=== PATIENT | male | born 1950 | race Caucasian/White ===

== ENCOUNTER 2021-08-02 07:50 | Outpatient (CLI) | payer MEDICARE, OTHER, SELFPAY ==
--- NOTE | ~2021-08-02 | NM_ITS ---
EXAMINATION: NM hepatobiliary wo pharm DATE: 08/02/2021 10:17 INDICATION: Right upper quadrant abdominal pain COMPARISON: None. TECHNIQUE: 5.0 mCi Tc-99m mebrofenin (Choletec) was administered intravenously. Scintigraphic images of the abdomen were obtained for one hour. At the 1 hour time point, the patient drank 8 oz Ensure, and imaging was continued for 60 minutes. Gallbladder ejection fraction was calculated by the technol ogist. FINDINGS: There is normal clearance of radiotracer from the blood pool. There is homogeneous tracer u ptake by the liver. Activity progresses to the bowel and gallbladder. The gallbladder ejection fract ion (GBEF) is 92%. Note that with this technique, normal GBEF >= 33%. IMPRESSION: 1. Normal hepatobiliary scan Reviewed, dictated and finalized at location A.
== END 2021-08-02 07:51 | disposition home or self-care (01) ==
LOC: ANHIMG 07:54
PROVIDERS: PCP Internal Medicine; Visit Provider Nurse Practitioner
DX: R10.11 Right upper quadrant pain (principal)
CPT/HCPCS: 78226; A9537

== ENCOUNTER 2022-03-05 20:04 | Observation (INO) | payer MEDICARE, OTHER, SELFPAY ==
--- NOTE | ~2022-03-05 | CT_ITS ---
EXAMINATION: CT abdomen pelvis wo con DATE: 03/05/2022 22:13 INDICATION: left flank pain TECHNIQUE: Computed tomography (CT) of the abdomen and pelvis was performed without intravenous contr ast. Automated exposure control and iterative reconstruction technique were employed. The dose-length product was 1476.55 mGy-cm. COMPARISON: None. FINDINGS: Lower thorax: Heavy coronary artery calcification. Possible coronary stents. Aortic valve replacement . Dependent atelectasis. Moderate hiatal hernia. Liver: Normal. Biliary/Gallbladder: Gallbladder is mildly contracted with a suggestion of minimal inflammatory llanos e. No bile duct dilation. Pancreas: No mass or duct dilation. Spleen: Normal. Adrenals:No mass. Kidneys: Multiple bilateral nonobstructing calculi. Nonobstructing 4 mm calculus in the left renal pe lvis. There is mild left proximal and trace right proximal hydronephrosis. 5 and 7 mm stones are pres ent in the left and right proximal ureters respectively. GI tract: No small or large bowel dilation. Normal appendix. Diverticulosis without diverticulitis. Mesentery/Peritoneum: No ascites, mass, or free air. Retroperitoneum: No mass. Atherosclerotic abdominal aortic and/or arterial calcifications. 3.2 cm fus iform infrarenal abdominal aortic aneurysm. Pelvis: 4 mm calcification in the dependent urinary bladder. Urinary bladder wall thickening, likely a consequence of marked prostatomegaly. Soft Tissues: Soft tissues and body wall unremarkable. Bones: No acute osseous finding. IMPRESSION: 1. 5 mm left proximal ureteral stone causing mild left obstructive uropathy. 2. 7 mm proximal right ureteral stone causing trace obstructive uropathy. 3. 4 mm calcification in the urinary bladder. 4. 3.2 cm infrarenal abdominal aortic aneurysm, recommend ultrasound of the aorta in 3 years for surv jamesance. Reviewed, dictated and finalized at location K. MOBILE BODY REPAIR CHIEF IMPRESSION: 1. 5 mm left proximal ureteral stone causing mild left obstructive uropathy. 2. 7 mm proximal right ureteral stone causing trace obstructive uropathy. 3. 4 mm calcification in the urinary bladder. 4. 3.2 cm infrarenal abdominal aortic aneurysm, recommend ultrasound of the aor ta in 3 years for surveillance.
--- NOTE | ~2022-03-05 | XR_ITS ---
EXAMINATION: XR retrograde pyelo w/stent BI DATE: 03/06/2022 11:45 INDICATION: Bilateral ureteral and kidney stones. TECHNIQUE: 6 intraoperative fluoroscopic views of the abdomen and pelvis were obtained. I was not pre sent. Fluoroscopy exposure time was 202 seconds. COMPARISON: CT abdomen and pelvis 03/05/2022 FINDINGS: Bilateral retrograde pyelograms demonstrate mild bilateral hydronephrosis. The final images demonstrate bilateral internal ureteral stents in expected positions. IMPRESSION: 1. Mild bilateral hydronephrosis with internal ureteral stents in expected positions. Reviewed, dictated and finalized at location A. HANDLE ASSEMBLER IMPRESSION: 1. Mild bilateral hydronephrosis with internal ureteral stents in expected posi tions.
--- NOTE | ~2022-03-05 | XR_ITS ---
EXAM: XR abdomen/kub 1V DATE: 03/05/2022 22:19 HISTORY: left flank pain x today . COMPARISON: CT abdomen and pelvis same date. FINDINGS: Clear lung bases. Normal bowel gas pattern. No organomegaly. Multiple bilateral renal calc ifications, much better appreciated the prior CT difficult to visualize radiographically due to body habitus. The known 5 mm proximal ureteral stone projects just superior to the tip of the left L4 garcia sverse process. The known 7 mm proximal right ureteral stone projects adjacent to the right inferolat eral corner of the L3 vertebral body Regional bones and soft tissues normal for age. IMPRESSION: Somewhat poor visualization of the known bilateral nephrolithiasis. Bilateral proximal co mparison ureteral stones. Reviewed, dictated and finalized at location K. TABOUT PUSHER IMPRESSION: Somewhat poor visualization of the known bilateral nephrolithiasis. Bilateral proximal comparison ureteral stones.
[2022-03-05 20:19] VITALS: BP 157/85; PULSE 61; RESP 20; TEMP 36.8; O2SAT 99
[2022-03-05 20:43] LABS: Basophils Absolute Auto 0.1 K/mm3 (0.0-0.1); Basophils Percent Auto 0.4 % (0.2-1.2); Eosinophils Absolute Auto 0.5 K/mm3 (0-0.3); Eosinophils Percent Auto 3.7 % (0-4.4); Hematocrit 41.3 % (42.0-52.0); Hemoglobin 14.3 g/dL (14.0-18.0); Immature Granulocyte Absolute 0.06 K/mm3 (0.00-0.031); Immature Granulocyte Percent A 0.5 % (0-0.5); Lymphocytes Absolute Auto 1.87 K/mm3 (0.9-3.2); Lymphocytes Percent Auto 15.5 % (18.3-44.2); Mean Corpuscular HGB Conc 34.6 g/dl (32-36); Mean Corpuscular Hemoglobin 32.8 pg (26-34); Mean Corpuscular Volume 94.7 fl (80-100); Mean Platelet Volume 9.1 fl (7.4-10.4); Monocytes Absolute Auto 1.2 K/mm3 (0.1-0.6); Monocytes Percent Auto 9.8 % (2.6-8.5); Neutrophils Absolute Auto 8.5 K/mm3 (1.3-6.7); Neutrophils Percent Auto 70.1 % (45.5-73.1); Platelet Count Result 188 k/mm3 (150-375); Red Blood Count 4.36 M/mm3 (4.6-6.20); Red Cell Distribution Width 13.2 % (11.5-14.5); White Blood Count 12.1 K/mm3 (4.5-10.0)
[2022-03-05 20:48] LABS: Add Urine Microscopic? YES; Appearance Urine Clear (Clear); Bilirubin Urine Negative (Negative); Blood Urine Trace-Intact (Negative); Color Urine Light Yellow (Yellow); Glucose Urine UA Negative (Negative); Ketones Urine Negative (Negative); Leukocyte Esterase Ur Negative LEU/UL (Negative); Nitrate Urine Negative (Negative); Protein Urine Negative (Negative); Urobilinogen Urine 0.2 mg/dL (<2.0); pH Urine 5.5 (5.0-9.0)
[2022-03-05 20:52] LABS: Mucus Urine Rare /lpf; RBC Urine 0-2 /hpf (0-2); Squamous Epithelial Cell Urine Rare /hpf (Few); WBC Urine 0-3 /hpf
[2022-03-05 20:58] LABS: Alanine Aminotransferase 37 U/L (6-50); Albumin Level 4.8 g/dL (3.5-5.1); Alkaline Phosphatase 106 U/L (38-126); Anion Gap 9 mmol/L (8-16); Aspartate Amino Transferase 30 U/L (17-59); Bilirubin,Total 0.6 mg/dL (0.2-1.3); Blood Urea Nitrogen 21 mg/dL (9-20); Calcium 9.2 mg/dL (8.4-10.2); Carbon Dioxide 28 mmol/L (22-30); Chloride 101 mmol/L (98-107); Estimated CRCL calculation 58 ml/min; Estimated Glomerular Filt Rate 50; Glucose 107 mg/dL (65-110); Potassium 4.4 mmol/L (3.4-5.0); Sodium 138 mmol/L (137-145)
--- NOTE | 2022-03-05 22:17 | ED.BACK ---
HPI - Back Pain/Injury General Chief Complaint: Back Pain/Injury Stated Complaint: right sided back pain Time Seen by Provider: 03/05/22 21:40 Source: patient Mode of arrival: ambulatory Limitations: no limitations History of Present Illness HPI Narrative: 71-year-old male with history of kidney stones, aortic valve replacement in January presents today with complaints of left flank pain that started about 530 6:00 tonight. Patient states he was laying on the couch when the pain started. Pain has been constant since it started. He denies any urinary symptoms like dysuria, hematuria or testicle pain. He denies any trauma. Denies aggravating or alleviating factors. He tried a heating pad at home without relief. Related Data Home Medications Medication Instructions Recorded Confirmed calcium carbonate 600 mg calcium 600 mg PO DAILY 04/04/19 09/11/21 (1,500 mg) tablet (Calcium) nitroglycerin 0.4 mg sublingual 0.4 mg sublingual Q5M PRN 01/02/21 09/11/21 tablet ascorbic acid (vitamin C) 500 mg 500 mg PO DAILY 01/23/22 chewable tablet aspirin 81 mg tablet,delayed 81 mg PO DAILY 01/23/22 release metoprolol succinate 25 mg 25 mg PO DAILY 01/23/22 tablet,extended release 24 hr multivitamin (Multiple Vitamins 1 tablet PO DAILY 01/23/22 tablet) ticagrelor 90 mg tablet (Brilinta) 90 mg PO BID 01/23/22 Allergies Allergy/AdvReac Type Severity Reaction Status Date / Time No Known Allergies Allergy Verified 01/23/22 08:21 Review of Systems Review of Systems: CONSTITUTIONAL: Denies fever, chills, or sweats. CARDIOVASCULAR: Denies chest pain, palpitations, or edema. RESPIRATORY: Denies cough or dyspnea. GASTROINTESTINAL: Denies abdominal pain, nausea, vomiting, or diarrhea. GENITOURINARY: Denies dysuria or hematuria. SKIN: Denies rash or itching. MUSCULOSKELETAL: Left flank pain. Denies joint pain, or myalgia. [facility] Past Medical History Medical History Aortic valve stenosis Bilateral carpal tunnel syndrome Bradycardia Depression Elevated PSA Essential hypertension Faulty mitral valve GERD (gastroesophageal reflux disease) Hypertension Kidney stone Mixed hypercholesterolemia and hypertriglyceridemia Obesity Ruptured disc, cervical Surgical History Surgical History H/O prostate biopsy (~03/2020) History of back surgery History of cardiac cath (~07/2020) History of carpal tunnel surgery Both hands and both elbows 01/2019 History of coronary artery stent placement History of knee replacement History of neck surgery History of rotator cuff surgery Family History Family History Other Acute myocardial infarction Other Hypertension Social History Social History Social History: Caffeine- Coffee, 3-4 cups daily Smoking status: Never smoker Alcohol intake: current Drinks per week: 3 Alcohol use details: beer, Exam Narrative: GENERAL: Well-appearing, well-nourished, and in no acute distress. HEAD: Normocephalic, atraumatic. EYES: PERRLA and EOMI. NECK: Supple. No adenopathy or masses. No carotid bruits or JVD CHEST: Clear to auscultation. No respiratory distress. No wheezes rales or rhonchi HEART: Regular rate and rhythm. No murmur heard. Normal peripheral pulses. ABDOMEN: Soft, nontender, nondistended, normal active bowel sounds. No CVA tenderness. Tenderness with palpation to the left lower back adjacent to the lumbar spine. EXTREMITIES: Normal range of motion. No edema. SKIN: Warm, dry, no rash. Course Reevaluation(s) Reevaluation #1: Patient with minimal improvement in pain after morphine IV. Reviewed labs and CT results with patient. Aware we will call urology. Consultations Consultation #1: Dr. Montes consulted. Reviewed labs and CT. Pat
[2022-03-05] MEDS: MORPHINE SULFATE INJ (*CRX) 10 MG/ML AMP 4 MG IM (22:28)
[2022-03-06] VITALS (9 sets, daily range): BP systolic 148–180; BP diastolic 84–114; PULSE 63–100; RESP 13–20; TEMP 36.2–37.1; O2SAT 92–100; BMI 35.2
[2022-03-06] MEDS: SODIUM CHLORIDE 0.9% IV 1,000 ML 999 ML IV CONT (00:02)
[2022-03-06] MEDS: HYDROmorphone HCL INJ (*CRX) 1 MG/ML SYR 0.5 MG IV PUSH ×2 (00:03→05:29)
--- NOTE | 2022-03-06 00:28 | PM.IMHP ---
H&P: HPI History of Present Illness Date/Time: 03/06/22 00:28 Chief Complaint: left flank pain Narrative: This is a 71-year-old male with past medical history significant for hypertension, coronary artery disease, aortic stenosis status post repair, status post PCI, dyslipidemia, obesity. gastroesophageal reflux disease. patient presents to the emergency room due to left flank pain started in the evening, patient has been doing well prior to these recently had valve repair with coronary artery in stenting, patient denies any fevers, rigors, chills had an episode of nausea and vomiting rates the pain at 10/10 in intensity. Preliminary workup was significant for CT of abdomen and pelvis was reported as: FINDINGS: Lower thorax: Heavy coronary artery calcification. Possible coronary stents. Aortic valve replacement. Dependent atelectasis. Moderate hiatal hernia. Liver: Normal.? Biliary/Gallbladder: Gallbladder is mildly contracted with a suggestion of minimal inflammatory change. No bile duct dilation. Pancreas: No mass or duct dilation. Spleen: Normal. Adrenals:No mass. Kidneys: Multiple bilateral nonobstructing calculi. Nonobstructing 4 mm calculus in the left renal pelvis. There is mild left proximal and trace right proximal hydronephrosis. 5 and 7 mm stones are present in the left and right proximal ureters respectively. GI tract: No small or large bowel dilation. Normal appendix. Diverticulosis without diverticulitis. Mesentery/Peritoneum: No ascites, mass, or free air. Retroperitoneum: No mass. Atherosclerotic abdominal aortic and/or arterial calcifications. 3.2 cm fusiform infrarenal abdominal aortic aneurysm. Pelvis: 4 mm calcification in the dependent urinary bladder. Urinary bladder wall thickening, likely a consequence of marked prostatomegaly. Soft Tissues: Soft tissues and body wall unremarkable. Bones:? No acute osseous finding. IMPRESSION: 1. 5 mm left proximal ureteral stone causing mild left obstructive uropathy. 2. 7 mm proximal right ureteral stone causing trace obstructive uropathy. 3. 4 mm calcification in the urinary bladder. 4. 3.2 cm infrarenal abdominal aortic aneurysm, recommend ultrasound of the aorta in 3 years for surveillance. Review of Systems Review of Systems: left flank pain Constitutional: Constitutional: Denies chills, Denies fever(s), Denies malaise and Denies night sweats Eyes: Eyes: Denies change in vision ENT: Denies dysphagia, Denies vertigo, Denies dizziness and Denies odynophagia Cardiovascular: Cardiovascular: Denies chest pain, Denies leg edema, Denies lightheadedness, Denies radiating jaw, neck or arm pain and Denies palpitations Respiratory: Respiratory: Denies chest congestion, Denies cough, Denies excessive phlegm production, Denies pain on inspiration, Denies dyspnea and Denies wheezing Gastrointestinal: Gastrointestinal: Reports abdominal pain, Reports GI cramping, Denies dyspepsia, Denies heartburn, Denies diarrhea, Reports nausea and Reports vomiting Genitourinary: Genitourinary: Denies hematuria and Reports flank pain Musculoskeletal: Musculoskeletal: Denies back pain, Denies joint swelling and Denies muscle weakness Integumentary/Breasts: Skin/Breast: Denies rash Neurologic: Denies focal weakness and Denies Sensory deficit (Neuro) Psychiatric: Psychiatric: Reports no additional psychiatric complaints and Reports as per HPI Endocrine: Endocrine: Denies cold intolerance, Denies flushing, Denies heat intolerance, Denies polyphagia, Denies polydipsia and Denies palpitations Hematologic/Lymphatic: Hematologic/Lymphatic: Reports no additional hematologic/lymphatic complaints and Reports as per HPI Allergic/Immunologic: Allergic/Immunologic: Reports no additional allergic/immunologic complaints and Reports as per HPI PMFSH Past Medical History Medical History Aortic valve stenosis Bilateral carpal tunnel syndrome Bradyc
[2022-03-06 00:44] LABS: Influenza A QL RT-PCR Negative (Negative); Influenza B QL RT-PCR Negative (Negative); RSV RNA, RT-PCR Negative (Negative); SARS-CoV-2 RNA PCR Negative
--- NOTE | 2022-03-06 03:28 | ADMGEN ---
This patient, Jeremiah Maldonado, was admitted to [facility] Surg Room 322-01. Patient/family oriented to hospital policies and general routines including ID bracelet, bed and alarms, visiting hours, pain management, procedures, bathroom and other care routines, personal items, smoking policy, room service/diet, and visiting hours. Information on how to activate the Rapid Response Team has been discussed. Patient/Family are encouraged to report perceived risks to care and to ask questions if they do not understand what they are told or what they should do.
[2022-03-06] MEDS: SODIUM CHLORIDE 0.9% IV 1,000 ML 125 ML IV CONT (05:30)
--- NOTE | 2022-03-06 07:11 | WPDURCON ---
Assessment and Plan Assessment and plan (1) Bilateral ureteral calculi: Code(s): N20.1 - Calculus of ureter Status: Acute (2) Bilateral renal stones: Code(s): N20.0 - Calculus of kidney Status: Acute Assessment and Plan: Cystoscopy, bilateral ureteroscopy with laser lithotripsy and stone extraction, possible retrograde pyelography and stent placement Urology Consult Note HPI Date Seen: 03/06/22 Requesting Physician: Jeffrey Cartagena MD Primary Care Provider: Baldemar Lackey, Consult Narrative Narrative: Jeremiah Maldonado is a 71 year old male With, somewhat surprising prior urological history, who presents to the emergency department with acute left flank pain radiating to his left lower quadrant. This was precipitated without injury or strain. He had some nausea but no vomiting. He had no fever chills or gross hematuria. CT imaging demonstrates bilateral 5-6 mm obstructing mid ureteral calculi and several bilateral nonobstructing renal calculi. He was admitted for pain control and hydration. Has minimal elevation in his serum creatinine. After discussion of options he has elected to proceed with cystoscopy with bilateral ureteroscopy, bilateral stone extraction with possible laser lithotripsy and bilateral stent placement. We will not address his larger renal calculi today. In the future he likely will need ESWL but will need to be off of anticoagulants for that. Review of Systems Cardiovascular: Cardiovascular: Denies chest pain, Denies lightheadedness, Denies palpitations and Denies dyspnea Respiratory: Respiratory: Denies dyspnea Gastrointestinal: Gastrointestinal: Denies diarrhea, Denies nausea and Denies vomiting Genitourinary: Genitourinary: Denies hematuria and Denies dysuria Endocrine: Endocrine: Denies palpitations [facility] Past Medical History Medical History Aortic valve stenosis Bilateral carpal tunnel syndrome Bradycardia Depression Elevated PSA Essential hypertension Faulty mitral valve GERD (gastroesophageal reflux disease) Hypertension Kidney stone Mixed hypercholesterolemia and hypertriglyceridemia Obesity Ruptured disc, cervical Surgical History Surgical History H/O prostate biopsy (~03/2020) History of back surgery History of cardiac cath (~07/2020) History of carpal tunnel surgery Both hands and both elbows 01/2019 History of coronary artery stent placement History of knee replacement History of neck surgery History of rotator cuff surgery Family History Family History Other Acute myocardial infarction Other Hypertension Social History Social History Social History: Caffeine- Coffee, 3-4 cups daily Smoking status: Never smoker Alcohol intake: current Drinks per week: 1 Alcohol use details: beer, Substance use: never Substance use type: does not use Lack of Transportation: No Lack of Food: Never True Current Housing: I Have Housing Concerned About Future Housing: No Difficulty Paying Gas/Electric Bills: No Difficulty Paying for Meds: No Currently Unemployed: No Education: High School Diploma/GED Difficulty w/ Childcare or Family Care: No Spiritual care concerns: No Meds Home Medications and Allergies Home Medications Medication Instructions Recorded Confirmed Type calcium carbonate 600 mg calcium 600 mg PO DAILY 04/04/19 03/06/22 History (1,500 mg) tablet (Calcium) furosemide 20 mg tablet (Lasix) 20 mg PO QAM #90 tabs 11/29/19 03/06/22 Rx nitroglycerin 0.4 mg sublingual 0.4 mg sublingual Q5M PRN chest 01/02/21 03/06/22 History tablet pain losartan 50 mg tablet 50 mg PO DAILY #90 tabs 03/12/21 03/06/22 Rx esomeprazole magnesium 20 mg 40 mg PO DAILY #180 caps 1
[2022-03-06 07:43] LABS: Basophils Percent Auto 0.3 % (0.2-1.2); Eosinophils Absolute Auto 0.3 K/mm3 (0-0.3); Eosinophils Percent Auto 2.4 % (0-4.4); Hematocrit 39.1 % (42.0-52.0); Hemoglobin 13.4 g/dL (14.0-18.0); Immature Granulocyte Absolute 0.02 K/mm3 (0.00-0.031); Immature Granulocyte Percent A 0.2 % (0-0.5); Lymphocytes Absolute Auto 1.84 K/mm3 (0.9-3.2); Lymphocytes Percent Auto 17.9 % (18.3-44.2); Mean Corpuscular HGB Conc 34.3 g/dl (32-36); Mean Corpuscular Hemoglobin 32.8 pg (26-34); Mean Corpuscular Volume 95.8 fl (80-100); Mean Platelet Volume 9.4 fl (7.4-10.4); Monocytes Percent Auto 9.7 % (2.6-8.5); Neutrophils Absolute Auto 7.1 K/mm3 (1.3-6.7); Neutrophils Percent Auto 69.5 % (45.5-73.1); Platelet Count Result 178 k/mm3 (150-375); Red Blood Count 4.08 M/mm3 (4.6-6.20); Red Cell Distribution Width 13.2 % (11.5-14.5); White Blood Count 10.3 K/mm3 (4.5-10.0)
[2022-03-06 07:59] LABS: Anion Gap 7 mmol/L (8-16); Blood Urea Nitrogen 19 mg/dL (9-20); Calcium 8.5 mg/dL (8.4-10.2); Carbon Dioxide 25 mmol/L (22-30); Chloride 100 mmol/L (98-107); Estimated CRCL calculation 62 ml/min; Estimated Glomerular Filt Rate 54; Glucose 112 mg/dL (65-110); Potassium 4.2 mmol/L (3.4-5.0); Sodium 132 mmol/L (137-145)
[2022-03-06] MEDS: METOPROLOL SUCCINATE EXT REL 25 MG TABCR PO (09:10)
--- NOTE | 2022-03-06 09:42 | WPDHPUPDATE1 ---
History and Physical Update Update Date/Time: 03/06/22 09:42 History and Physical has been reviewed, including an updated exam of the patient. There are NO changes in the patient's condition. Risks, benefits, and alternatives have been discussed and questions answered. Patient agrees to proceed with procedure.
--- NOTE | 2022-03-06 10:30 | WPDANESEPPF ---
Anes - Initial Pre Proc Eval Procedure: Operation Date: 03/06/22 10:30 Proposed Procedures p Cystoscopy, Bilateral Retrograde Pyelogram, Bilateral Stone Extraction, Bilateral Stent Placement; Possible Holmium Laser(Bilateral) - Daniel Montes MD Date/Time: 03/06/22 10:30 Surgeon: Jeffrey Cartagena MD Pre Op Diagnosis: Nephrolithiasis,Obstructive Uropathy Patient Data Age: 71 Gender: M Height: 1.83 m Weight: 118 kg Last Vital Signs Temp 98.7 F 03/06/22 06:00 Pulse 100 03/06/22 06:00 Resp 18 03/06/22 06:00 BP 165/99 H 03/06/22 06:00 Pulse Ox 98 03/06/22 06:00 O2 Del Method Room Air 03/05/22 20:19 Allergies Allergy/AdvReac Type Severity Reaction Status Date / Time No Known Allergies Allergy Verified 01/23/22 08:21 Home Medications Medication Instructions Recorded Confirmed Type calcium carbonate 600 mg calcium 600 mg PO DAILY 04/04/19 03/06/22 History (1,500 mg) tablet (Calcium) furosemide 20 mg tablet (Lasix) 20 mg PO QAM #90 tabs 11/29/19 03/06/22 Rx nitroglycerin 0.4 mg sublingual 0.4 mg sublingual Q5M PRN chest 01/02/21 03/06/22 History tablet pain losartan 50 mg tablet 50 mg PO DAILY #90 tabs 03/12/21 03/06/22 Rx esomeprazole magnesium 20 mg 40 mg PO DAILY #180 caps 03/21/21 03/06/22 Rx capsule,delayed release Vascepa 1 gram capsule (icosapent See Rx Instructions .Route 10/21/21 03/06/22 Rx ethyl) .COMPLEX #360 caps escitalopram oxalate 10 mg tablet See Rx Instructions .Route 12/04/21 03/06/22 Rx .COMPLEX #90 tabs tamsulosin 0.4 mg capsule See Rx Instructions .Route 12/04/21 03/06/22 Rx .COMPLEX #180 caps hyoscyamine sulfate 0.125 mg tablet See Rx Instructions .Route 12/20/21 03/06/22 Rx .COMPLEX #120 tabs ascorbic acid (vitamin C) 500 mg 500 mg PO DAILY 01/23/22 03/06/22 History chewable tablet aspirin 81 mg tablet,delayed 81 mg PO DAILY 01/23/22 03/06/22 History release atorvastatin 40 mg tablet 40 mg PO DAILY #90 tabs 01/23/22 03/06/22 Rx clobetasol 0.05 % topical cream 1 applic topical BID #60 grams 01/23/22 03/06/22 Rx metoprolol succinate 25 mg 25 mg PO DAILY 01/23/22 03/06/22 History tablet,extended release 24 hr multivitamin (Multiple Vitamins 1 tablet PO DAILY 01/23/22 03/06/22 History tablet) ticagrelor 90 mg tablet (Brilinta) 90 mg PO BID 01/23/22 03/06/22 History Laboratory Tests 03/05/22 03/05/22 03/05/22 20:34 20:34 20:39 WBC 12.1 K/mm3 H K/mm3 (4.5-10.0) RBC 4.36 M/mm3 L M/mm3 (4.6-6.20) Hgb 14.3 g/dL g/dL (14.0-18.0) Hct 41.3 % L % (42.0-52.0) MCV 94.7 fl fl (80-100) MCH 32.8 pg pg (26-34) MCHC 34.6 g/dl g/dl (32-36) RDW 13.2 % % (11.5-14.5) Plt Count 188 k/mm3 k/mm3 (150-375) MPV 9.1 fl fl (7.4-10.4) Immature Gran % (Auto) 0.5 % % (0-0.5) Neut % (Auto) 70.1 % % (45.5-73.1) Lymph % (Auto) 15.5 % L % (18.3-44.2) [place] % (Auto) 9.8 % H % (2.6-8.5) Eos % (Auto) 3.7 % % (0-4.4) Baso % (Auto) 0.4 % % (0.2-1.2) Lymph # (Auto) 1.87 K/mm3 K/mm3 (0.9-3.2) [place] # (Auto) 1.2 K/mm3 H K/mm3 (0.1-0.6) Eos # (Auto) 0.5 K/mm3 H K/mm3 (0-0.3) Baso # (Auto) 0.1 K/mm3 K/mm3 (0.0-0.1) Abs Immat Gran (auto) 0.06 K/mm3 H K/mm3 (0.00-0.031) Absolute Neuts (auto) 8.5 K/mm3 H K/mm3 (1.3-6.7) Absolute Nucleated RBC 0.0 K/mm3 K/mm3 (0.0-0.012) Nucleated RBC % 0.0 % % (0.0-0.2) Sodium 138 mmol/L mmol/L (137-145) Potassium 4.4 mmol/L mmol/L (3.4-5.0) Chloride 101 mmol/L mmol/L (98-107) Carbon Dioxide 28 mmol/L mmol/L (22-30) Anion Gap 9 mmol/L mmol/L (8-16) BUN 21 mg/dL H mg/dL (9-20) Creatinine 1.40 mg/dL H mg/dL (0.7-1.3) Estim Creat Clear Calc 58 ml/min ml/min
[2022-03-06] MEDS: ceFAZolin 2 GM/D5W 50 ML 2 GM/50 ML BAG IVPB (10:34)
[2022-03-06] MEDS: LACTATED RINGERS 1,000 ML 30 ML IV CONT (11:15)
--- NOTE | 2022-03-06 11:45 | W.PM.PROC2 ---
Procedure Note - Detailed Date of Procedure 03/06/22 Pre-op Diagnosis Bilateral ureteral and renal stones Post-op Diagnosis Same Procedure Performed Cystoscopy, bilateral ureteroscopy, bilateral retrograde pyelography and bilateral ureteral stent placement Surgeon Daniel Montes MD Anesthesia General Description of Procedure Patient is brought to the operative suite was prepped draped in routine sterile fashion while in dorsal lithotomy position after the uneventful induction of a general LMA anesthetic. Cystoscopy is undertaken with a 19 F rigid cystoscope. He has a markedly enlarged prostate with moderate-sized median lobe. This makes identification of the ureteral orifices somewhat difficult. He does have trabeculation of the bladder and a few small bladder stones. Eventually I was able to identify the ureteral orifices. A 0.035 in glidewire was advanced into each renal pelvis. I experienced similar difficulty getting to his proximal to mid ureteral stones on both sides. Each distal ureter was dilated with a 8/10F dilator. I then could pass a flex simple ureteral scope into each mid ureter. Because the narrowing of the ureter, however, I could not get into the more proximal ureter. With irrigation the ureteral stones washed back into the renal pelvis. This plug occluded any definitive intervention for the stones. I did perform bilateral retrograde pyelograms via an angiographic catheter in place bilateral 4.8 F double-J ureteral stents. Patient has not only these ureteral stones but larger renal stones. At some point, when he is able to come off anticoagulation, we will need to consider management options for his upper tract stones. In the meantime, we will keep the bilateral indwelling ureteral stents in place. Drains Yes Packing No Pathology None sent Complications No immediate complications Condition Stable
[2022-03-06] MEDS: fentaNYL CITRATE INJ (*CRX) 100 MCG/2 ML VIAL 25 MCG IV PUSH ×2 (12:12→12:15)
--- NOTE | 2022-03-06 14:18 | PM.IMPN ---
Progress Note: A&P Assessment and Plan (1) Bilateral renal stones: Code(s): N20.0 - Calculus of kidney Status: Acute Assessment and Plan: S/P Cystoscopy, bilateral ureteroscopy, bilateral retrograde pyelography and bilateral ureteral stent placement today. - Continue IVF and supportive care. - Pain medications as needed. - UA without acute findings suggestive of infection. Repeat CBC am. - Appreciate urology intervention/recs. (2) Bilateral ureteral calculi: Code(s): N20.1 - Calculus of ureter Status: Acute Assessment and Plan: See above. (3) SHWETA (acute kidney injury): Code(s): N17.9 - Acute kidney failure, unspecified Status: Acute Assessment and Plan: Likely acutely worsened d/t obstruction. Improved on IVF overnight. Decrease ivf to 100ml/hr. Renal dose medications, avoid nephrotoxic meds. (4) Hypertension: Qualifiers: Hypertension type: essential hypertension Qualified Code(s): I10 - Essential (primary) hypertension Code(s): I10 - Essential (primary) hypertension Status: Acute Assessment and Plan: Losartan is held 2/2 shweta. Add norvasc, will need close o/p f/u as poor control historically per patient. Start norvasc today at 2.5mg. (5) Coronary artery disease: Code(s): I25.10 - Atherosclerotic heart disease of [place] coronary artery without angina pectoris Status: Acute Assessment and Plan: Cont dapt and toprol. No chest pain. (6) Aortic valve stenosis: Qualifiers: Cardiac valve disease etiology: etiology unspecified Qualified Code(s): I35.0 - Nonrheumatic aortic (valve) stenosis Code(s): I35.0 - Nonrheumatic aortic (valve) stenosis Status: Acute Assessment and Plan: S/P TAVR last month. Cont. home medications. (7) GERD (gastroesophageal reflux disease): Qualifiers: Esophagitis presence: esophagitis presence not specified Qualified Code(s): K21.9 - Gastro-esophageal reflux disease without esophagitis Code(s): K21.9 - Gastro-esophageal reflux disease without esophagitis Status: Acute Assessment and Plan: ppi. Plan Likely 24-48 hours of care prior to discharge. Time Spent With Patient Time with patient: 25 - 35 minutes Subjective Date/time seen: 03/06/22 14:18 Interval history: Jeremiah states his pain is still significant, but manageable. He verbalizes understanding of his plan of care for today, including procedural intervention. He notes that his bp at home is generally in the 160-170 range. Review of Systems Review of Systems: All systems reviewed & are unremarkable except as noted in HPI and below Exam Narrative: GENERAL APPEARANCE: Appears to be in no acute distress. HEAD: normocephalic atraumatic ENT: Hearing grossly intact, no nasal discharge NECK: Neck supple, trachea midline. CARDIAC: Normal S1/S2. Rhythm is regular. No murmurs, rubs, or gallops. No cyanosis or pallor. Extremities are warm and well perfused. LUNGS: Clear to auscultation without rales, rhonchi, wheezing or diminished breath sounds. Respirations even and unlabored. ABDOMEN: BS positive x 4 quadrants. Soft, nondistended, nontender. No guarding or rebound. MSK: No joint tenderness/swelling, fair strength in all extremities. PERIPHERAL VASCULAR: Peripheral pulses palpable. Normal perfusion, cap refill <2 seconds. No edema. NEURO: Follows commands. No focal deficits. SKIN: [place] without lesions or eruptions. PSYCH: Stable, no paranoia or delusional thinking. Objective Data Vital Signs Vital Signs: Vital Signs - 24 hr 03/05/22 20:19 03/06/22 01:50 03/06/22 06:00 Temperature 98.2 F 98.7 F Pulse Rate 61 74 100 Respiratory Rate 20 16 18 Blood Pressure 157/85 H 168/98 H 165/99 H Pulse Oximetry 99 95 98 Oxygen Delivery Room Air Oxygen Flow Rate 03/06/22 04:05 03/06/22 11:55 03/06/22 12:10 Temperature 97.7 F 97.2 F L Pulse Rate 63 74 72 R
[2022-03-06] MEDS: ESCITALOPRAM OXALATE 10 MG TABLET BY MOUTH (14:54)
[2022-03-06] MEDS: ASPIRIN 81 MG ENTERIC TABLET PO (14:55)
[2022-03-06] MEDS: TICAGRELOR 90 MG TABLET PO ×2 (14:55→21:06)
[2022-03-06] MEDS: CALCIUM CARBONATE (OSCAL) 500 MG TABLET PO (14:55)
[2022-03-06] MEDS: ASCORBIC ACID 500 MG TABLET PO (14:55)
[2022-03-06] MEDS: TAMSULOSIN HCL 0.4 MG CAPSULE 0.8 MG BY MOUTH (14:55)
[2022-03-06] MEDS: PANTOPRAZOLE 40 MG TABLET PO (14:56)
[2022-03-06] MEDS: CLOBETASOL PROPIONATE 0.05% CREAM 15 GM 1 APPLIC TOPICAL (14:56)
[2022-03-06] MEDS: OMEGA 3 POLYUNSAT FATTY ACIDS 1 GM CAP 2 GM BY MOUTH (14:56)
[2022-03-06] MEDS: SODIUM CHLORIDE 0.9% IV 1,000 ML 100 ML IV CONT ×2 (14:56→21:09)
[2022-03-06] MEDS: ATORVASTATIN 40 MG TABLET PO (14:56)
[2022-03-06] MEDS: MULTIVITAMINS THERAPEUTIC TAB (*BKC) 1 TABLET PO (14:56)
[2022-03-06] MEDS: HYOSCYAMINE SULFATE 0.125 MG TABLET BY MOUTH ×2 (14:57→21:06)
[2022-03-06] MEDS: amLODIPine BESYLATE 2.5 MG TABLET PO (17:35)
--- NOTE | 2022-03-07 00:17 | PC.NURSE ---
Pt had cysto done today. Pt has had no complaints of pain. Pt continues to have hematuria. Pt is able to participate and contribute in plan of care. Pt expresses no needs at this time. Will continue to monitor pt.
[2022-03-07 07:28] LABS: Hematocrit 36.1 % (42.0-52.0); Hemoglobin 12.2 g/dL (14.0-18.0); Mean Corpuscular HGB Conc 33.8 g/dl (32-36); Mean Corpuscular Hemoglobin 31.9 pg (26-34); Mean Corpuscular Volume 94.5 fl (80-100); Mean Platelet Volume 9.4 fl (7.4-10.4); Platelet Count Result 160 k/mm3 (150-375); Red Blood Count 3.82 M/mm3 (4.6-6.20); Red Cell Distribution Width 13.4 % (11.5-14.5); White Blood Count 10.1 K/mm3 (4.5-10.0)
[2022-03-07 07:49] LABS: Alanine Aminotransferase 26 U/L (6-50); Albumin Level 4.1 g/dL (3.5-5.1); Alkaline Phosphatase 98 U/L (38-126); Anion Gap 7 mmol/L (8-16); Aspartate Amino Transferase 27 U/L (17-59); Blood Urea Nitrogen 17 mg/dL (9-20); Calcium 8.6 mg/dL (8.4-10.2); Carbon Dioxide 25 mmol/L (22-30); Chloride 105 mmol/L (98-107); Estimated CRCL calculation 67 ml/min; Estimated Glomerular Filt Rate 60; Glucose 117 mg/dL (65-110); Magnesium 1.9 mg/dL (1.6-2.3); Potassium 4.1 mmol/L (3.4-5.0); Sodium 137 mmol/L (137-145)
--- NOTE | 2022-03-07 08:17 | WPDUROPN2 ---
Progress Note: A&P Assessment and Plan (1) Bilateral renal stones: Code(s): N20.0 - Calculus of kidney Status: Acute (2) Bilateral ureteral calculi: Code(s): N20.1 - Calculus of ureter Status: Acute Assessment and Plan: Serum creat. improved overnight and tolerating stents well. Discharge today with f/u 2-weeks to decide fate of indwelling stents and known bilateral kidney stones. Will likely defer any additional significant intervention until 6 months from now, he has safely may be able to come off the anticoagulation. Patient should be discharged on finasteride 5mg daily (in addition to the tamsulosin he was taking at the time of admission) because of marked prostatic enlargement identified at the time of cystoscopy. Subjective Subjective Date/Time Seen: 03/07/22 08:17 Comfortable, tolerating stents Transient hematuria after endoscopic intervention is improving. Review of Systems Cardiovascular: Cardiovascular: Denies chest pain, Denies lightheadedness, Denies palpitations and Denies dyspnea Respiratory: Respiratory: Denies dyspnea Gastrointestinal: Gastrointestinal: Denies diarrhea, Denies nausea and Denies vomiting Genitourinary: Genitourinary: Denies hematuria and Denies dysuria Endocrine: Endocrine: Denies palpitations Exam Const: General: no acute distress Resp: Effort & Inspection: normal respiratory effort GI: Inspection: non-distended GI Palp: No abdominal tenderness and No Guarding due to palpation present (GI) Auscultation: normal bowel sounds Objective Data Vital Signs Vital Signs: Vital Signs - 24 hr 03/06/22 11:55 03/06/22 12:10 03/06/22 12:25 Temperature 97.2 F L Pulse Rate 74 72 68 Respiratory Rate 14 20 16 Blood Pressure 178/113 H 180/114 H 171/84 H Pulse Oximetry 100 100 94 Oxygen Delivery Simple Face Mask Simple Face Mask Room Air Oxygen Flow Rate 8 8 03/06/22 12:40 03/06/22 12:55 03/06/22 13:10 Temperature Pulse Rate 68 70 67 Respiratory Rate 16 13 16 Blood Pressure 170/95 H 148/97 H 163/89 H Pulse Oximetry 93 92 92 Oxygen Delivery Room Air Room Air Room Air Oxygen Flow Rate 03/06/22 21:06 Temperature Pulse Rate Respiratory Rate Blood Pressure Pulse Oximetry Oxygen Delivery Room Air Oxygen Flow Rate Intake/Output Intake/Output: Intake & Output 03/04/22 03/05/22 03/06/22 03/07/22 23:59 23:59 23:59 23:59 Intake Total 4290 Output Total 130 Balance 4160 Meds/Results Medications: Active Medications Generic Name Dose Route Start Last Admin Trade Name Freq PRN Reason Stop Dose Admin Amlodipine Besylate 2.5 mg 03/06/22 14:35 03/06/22 17:35 Amlodipine Besylate 2.5 Mg Tablet PO 2.5 mg QAM [facility] Administration Ascorbic Acid 500 mg 03/06/22 09:00 03/06/22 14:55 Ascorbic Acid 500 Mg Tablet PO 500 mg DAILY CHERI Administration Aspirin 81 mg 03/06/22 09:00 03/06/22 14:55 Aspirin 81 Mg Enteric Tablet PO 81 mg DAILY [facility] Administration Atorvastatin Calcium 40 mg 03/06/22 09:00 03/06/22 14:56 Atorvastatin 40 Mg Tablet PO 40 mg DAILY CHERI Administration Calcium Carbonate 500 mg 03/06/22 09:00 03/06/22 14:55 Calcium Carbonate (Oscal) 500 Mg Tablet PO 500 mg QAM [facility] Administration Clobetasol Propionate 1 applic 03/06/22 09:00 03/06/22 16:37 Clobetasol Propionate 0.05% Cream 15 Gm TOPICAL Not Given BID [facility] Escitalopram Oxalate 10 mg 03/06/22 09:00 03/06/22 14:54 Escitalopram Oxalate 10 Mg Tablet BY MOUTH 10 mg DAILY [facility] Administration Fentanyl Citrate 25 mcg 03/06/22 10:31 03/06/22 12:15 Fentanyl Citrate Inj (*Crx) 100 Mcg/2 Ml Vial IV PUSH 25 mcg Q2M PRN Administration Pain Finasteride 5 mg 03/07/22 09:00 Finasteride 5 Mg Tablet PO QAM [facility] Fish Oil 2 gm 03/06/22 09:00 03/06/22 16:38 [place] 3 Polyunsat Fatty Acids 1 Gm Cap BY MOUTH Not Given BID [facility] Hydromorphone HCl 0.5 mg 03/05/22
[2022-03-07] MEDS: OMEGA 3 POLYUNSAT FATTY ACIDS 1 GM CAP 2 GM BY MOUTH (08:49)
[2022-03-07 08:50] VITALS: PULSE 80
[2022-03-07] MEDS: ASPIRIN 81 MG ENTERIC TABLET PO (08:50)
[2022-03-07] MEDS: amLODIPine BESYLATE 2.5 MG TABLET PO (08:50)
[2022-03-07] MEDS: METOPROLOL SUCCINATE EXT REL 25 MG TABCR PO (08:50)
[2022-03-07] MEDS: ESCITALOPRAM OXALATE 10 MG TABLET BY MOUTH (08:50)
[2022-03-07] MEDS: FINASTERIDE 5 MG TABLET PO (08:50)
[2022-03-07] MEDS: ATORVASTATIN 40 MG TABLET PO (08:50)
[2022-03-07] MEDS: HYOSCYAMINE SULFATE 0.125 MG TABLET BY MOUTH (08:50)
[2022-03-07] MEDS: ASCORBIC ACID 500 MG TABLET PO (08:50)
[2022-03-07] MEDS: CALCIUM CARBONATE (OSCAL) 500 MG TABLET PO (08:50)
[2022-03-07] MEDS: PANTOPRAZOLE 40 MG TABLET PO (08:51)
[2022-03-07] MEDS: MULTIVITAMINS THERAPEUTIC TAB (*BKC) 1 TABLET PO (08:51)
[2022-03-07] MEDS: TICAGRELOR 90 MG TABLET PO (08:51)
[2022-03-07] MEDS: TAMSULOSIN HCL 0.4 MG CAPSULE 0.8 MG BY MOUTH (08:51)
[2022-03-07] MEDS: CLOBETASOL PROPIONATE 0.05% CREAM 15 GM 1 APPLIC TOPICAL (08:52)
--- NOTE | 2022-03-07 10:20 | WPDANESPN ---
Anes - Prog Note Post-Op Date/Time: 03/07/22 10:20 Cardiovascular status: normal Respiratory status: normal Airway patency: baseline Mental status: baseline Post-Op hydration status: normal Vital Signs: Last Vital Signs Temp 36.2 C L 03/06/22 11:55 Pulse 80 03/07/22 08:50 Resp 16 03/06/22 13:10 BP 163/89 H 03/06/22 13:10 Pulse Ox 92 03/06/22 13:10 O2 Del Method Room Air 03/06/22 21:06 O2 Flow Rate 8 03/06/22 12:10 Pain Score (VAS): 0 I/O: Intake & Output 03/06/22 03/07/22 03/07/22 23:59 07:59 15:59 Intake Total 1240 Balance 1240 Laboratory Tests 03/07/22 06:47 03/07/22 06:47 03/07/22 03/07/22 06:47 06:47 WBC 10.1 H RBC 3.82 L Hgb 12.2 L Hct 36.1 L MCV 94.5 MCH 31.9 MCHC 33.8 RDW 13.4 Plt Count 160 MPV 9.4 Sodium 137 Potassium 4.1 Chloride 105 Carbon Dioxide 25 Anion Gap 7 L BUN 17 Creatinine 1.20 Estim Creat Clear Calc 67 Estimated GFR 60 Glucose 117 H Calcium 8.6 Magnesium 1.9 Total Bilirubin 1.0 AST 27 ALT 26 Alkaline Phosphatase 98 Total Protein 7.0 Albumin 4.1 Post-procedural complaints: none Patient Feedback: Patient satisfied with anesthetic care.
--- NOTE | 2022-03-07 11:22 | PM.DS ---
DS: Admitting Diagnosis Discharge Date 03/07/2022 Admitting Diagnosis Bilateral kidney stone. DS: Discharge Diagnosis Discharge Diagnosis (1) Bilateral renal stones: Code(s): N20.0 - Calculus of kidney Status: Acute Assessment and Plan: S/P Cystoscopy, bilateral ureteroscopy, bilateral retrograde pyelography and bilateral ureteral stent placement today. - Continue IVF and supportive care. - Pain medications as needed. - UA without acute findings suggestive of infection. Repeat CBC am. - Appreciate urology intervention/recs. (2) Bilateral ureteral calculi: Code(s): N20.1 - Calculus of ureter Status: Acute Assessment and Plan: See above. (3) SHWETA (acute kidney injury): Code(s): N17.9 - Acute kidney failure, unspecified Status: Acute Assessment and Plan: Likely acutely worsened d/t obstruction. Improved on IVF overnight. Decrease ivf to 100ml/hr. Renal dose medications, avoid nephrotoxic meds. (4) Hypertension: Qualifiers: Hypertension type: essential hypertension Qualified Code(s): I10 - Essential (primary) hypertension Code(s): I10 - Essential (primary) hypertension Status: Acute Assessment and Plan: Losartan is held 2/2 shweta. Add norvasc, will need close o/p f/u as poor control historically per patient. Start norvasc today at 2.5mg. (5) Coronary artery disease: Code(s): I25.10 - Atherosclerotic heart disease of [place] coronary artery without angina pectoris Status: Acute Assessment and Plan: Cont dapt and toprol. No chest pain. (6) Aortic valve stenosis: Qualifiers: Cardiac valve disease etiology: etiology unspecified Qualified Code(s): I35.0 - Nonrheumatic aortic (valve) stenosis Code(s): I35.0 - Nonrheumatic aortic (valve) stenosis Status: Acute Assessment and Plan: S/P TAVR last month. Cont. home medications. (7) GERD (gastroesophageal reflux disease): Qualifiers: Esophagitis presence: esophagitis presence not specified Qualified Code(s): K21.9 - Gastro-esophageal reflux disease without esophagitis Code(s): K21.9 - Gastro-esophageal reflux disease without esophagitis Status: Acute Assessment and Plan: ppi. Plan Likely 24-48 hours of care prior to discharge. DS: Summary Hospital Course Reason for hospitalization: Kidney stones Hospital Course: 71 years old male admitted for bilateral kidney stone. Urology was consulted, treatment for bilateral hydronephrosis and stone was performed, stents were put in. patient had no complication during the stay in the hospital. Today patient is feeling better and patient discharged home in stable condition. Status at Discharge Cognitive/behavioral status at discharge: Stable Time Spent with Patient Time attestation: Total time spent providing and/or coordinating discharge services: Exam Narrative: GENERAL APPEARANCE: Appears to be in no acute distress. HEAD: normocephalic atraumatic ENT: Hearing grossly intact, no nasal discharge NECK: Neck supple, trachea midline. CARDIAC: Normal S1/S2. Rhythm is regular. No murmurs, rubs, or gallops. No cyanosis or pallor. Extremities are warm and well perfused. LUNGS: Clear to auscultation without rales, rhonchi, wheezing or diminished breath sounds. Respirations even and unlabored. ABDOMEN: BS positive x 4 quadrants. Soft, nondistended, nontender. No guarding or rebound. MSK: No joint tenderness/swelling, fair strength in all extremities. PERIPHERAL VASCULAR: Peripheral pulses palpable. Normal perfusion, cap refill <2 seconds. No edema. NEURO: Follows commands. No focal deficits. SKIN: [place] without lesions or eruptions. PSYCH: Stable, no paranoia or delusional thinking. Const: General: comfortable, no acute distress, well developed, alert, awake, average body habitus and overweight Nutritional Appearance: average body habitus and overweight Orientat
== END 2022-03-07 11:55 | disposition home or self-care (01) ==
LOC: ANHED 03-06 00:36 → ANH3MEDSUR 03-06 02:07
PROVIDERS: Preventive Medicine Aerospace Medicine; Urology; Admitting Provider Internal Medicine; Emergency Provider Nurse Practitioner Family; PCP Internal Medicine; Visit Provider Nurse Practitioner Family
PROC: (CPT 52352; principal; 2022-03-06 10:30)
DX: N13.2 Hydronephrosis with renal and ureteral calculous obstruction (principal); N32.89 Other specified disorders of bladder; N21.0 Calculus in bladder; I71.43 Infrarenal abdominal aortic aneurysm, without rupture; I35.0 Nonrheumatic aortic (valve) stenosis; Z95.2 Presence of prosthetic heart valve; F32.A Depression, unspecified; I10 Essential (primary) hypertension; N17.9 Acute kidney failure, unspecified; K21.9 Gastro-esophageal reflux disease without esophagitis; I25.10 Atherosclerotic heart disease of native coronary artery without angina pectoris; E78.2 Mixed hyperlipidemia; E66.9 Obesity, unspecified; Z68.35 Body mass index [BMI] 35.0-35.9, adult; Z82.49 Family history of ischemic heart disease and other diseases of the circulatory system; F10.90 Alcohol use, unspecified, uncomplicated; Z20.822 Contact with and (suspected) exposure to COVID-19; Z79.82 Long term (current) use of aspirin; Z79.899 Other long term (current) drug therapy
CPT/HCPCS: 52332; 36415; 74018; 74176; 74420; 80048; 80053; 81001; 83735; 85025; 85027; 87637; 96361; 96372; 96374; 96376; 99285; A9270; C1758; C1769; C1894; C2617; G0378; J0690; J1170; J2250; J2270; J2405; J2704; J3010; J7030; J7120

== ENCOUNTER 2022-05-05 08:44 | Outpatient (CLI) | payer MEDICARE, OTHER, SELFPAY ==
--- NOTE | ~2022-05-05 | XR_ITS ---
EXAMINATION: XR abdomen/kub 1V INDICATION: Bilateral kidney stones TECHNIQUE: Supine views of the abdomen were obtained on 2 radiographs. COMPARISON: 03/05/2022 FINDINGS: Bilateral internal ureteral stents have been inserted in expected position. Stones measurin g 5 mm and 4 mm are present adjacent to the right internal ureteral stent at the level of the L4 garcia sverse process. There is a 5 mm stone adjacent to the proximal left internal ureteral stent. There ar e multiple stones of the left kidney which measure up to 15 mm. Known right kidney stones are obscure d by bowel contents. There are no dilated loops of bowel. IMPRESSION: 1. Bilateral internal ureteral stents in expected positions with stones adjacent to both stents. 2. Left nephrolithiasis. Reviewed, dictated and finalized at location B. 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 Bilateral internal ureteral stents in expected positions with stones adjacen t to both stents. 2. Left nephrolithiasis.
== END 2022-05-05 08:45 | disposition home or self-care (01) ==
PROVIDERS: PCP Internal Medicine; Visit Provider Urology
DX: N20.0 Calculus of kidney (principal)
CPT/HCPCS: 74018

== ENCOUNTER 2022-05-16 09:12 | Outpatient (CLI) | payer MEDICARE, OTHER, SELFPAY ==
[2022-05-16 10:00] LABS: Anion Gap 7 mmol/L (8-16); Blood Urea Nitrogen 16 mg/dL (7-18); Calcium 8.7 mg/dL (8.5-10.1); Carbon Dioxide 27 mmol/L (21-32); Chloride 105 mmol/L (98-108); Estimated Glomerular Filt Rate 57; Glucose 115 mg/dL (70-99); Osmolality Calculated 290 mOsm/kg (285-295); Potassium 4.2 mmol/L (3.5-5.1); Sodium 139 mmol/L (136-145)
== END 2022-05-16 09:13 | disposition home or self-care (01) ==
LOC: CHSLAB 09:15
PROVIDERS: PCP Internal Medicine; Visit Provider Anesthesiology
DX: Z51.81 Encounter for therapeutic drug level monitoring (principal)
CPT/HCPCS: 36415; 80048; 93798

== ENCOUNTER 2022-05-22 00:27 | Day surgery (SDC) | payer MEDICARE, OTHER, SELFPAY ==
[2022-05-13 11:19] VITALS: BMI 34.4
--- NOTE | 2022-05-13 11:48 | PC.NURSE ---
Report to the Outpatient Waiting Room, entrance under the green pavilion located off [facility], at time __10:00AM on date __05/22/22 . Planned Procedure Time: __12:00PM . Time changes happen often and if your time is changed the preop area will call you the afternoon before. - You and your visitor will be asked to self-screen and do not enter if you have any COVID symptoms. - Only one visitor is requested with a max of two and NO children visitors are allowed at this time. - The patient visitor may be requested to leave or wait in car when not with patient due to distancing restrictions. - A mask is optional within the hospital at this time. Patients may have clear liquids (water, carbonated beverages, clear teas, apple juice) until 3 hours prior to surgery with a maximum of 20 ounces. - No food from midnight until time of surgery Take the following medications with a SIP of water the morning of surgery: ____NONE DO NOT STOP ANY OF YOUR OTHER PRESCRIPTION MEDICATIONS PRIOR TO SURGERY ?EXCEPT THE FOLLOWING Medications to discontinue per physician ___HOLD ALL VITAMINS/SUPPLEMENTS 7 DAYS PRE-OP PER DR VARGAS' OFFICE/PER PATIENT___ Date to take last dose___05/15/22 DR VARGAS TOLD PT TO CONTINUE BRILINTA & ASPIRIN- NO NEED TO HOLD. Please no make-up, nail cymro, hairspray, perfume, deodorant, or body powder the day of surgery. No jewelry (including any body piercings) or valuables the day of surgery, leave them at home. Please take a shower or bath the night before, or the morning of, surgery with an antibacterial soap. Wear comfortable, loose fitting clothing. Children are encouraged to wear pajamas. - Jewelry must be removed prior to entering the operating room. Rings and piercings that are not removed may be cut off. - The hospital will not accept responsibility for valuables. - Please leave all valuables, including medications, at home the day of surgery. If you are going home after surgery, a licensed delivery truck driver must drive you home. - NO public transportation without another adult if you receive anesthesia. - We recommend that an adult stay with you for 24 hours following discharge. - We also recommend that you do not drive, make important decision, drink alcoholic beverages, or take any drugs that were not prescribed by your health care provider for at least 24 hours after your discharge time. Follow any additional instructions given to you from your surgeon. If you or anyone in your household have experienced Covid symptoms in the past week, please notify your surgeon or the nurse liaison at the phone number below for possible testing. Telephone instructions given to __PATIENT_and asked if any additional questions and then verbalized understanding. Patient advised to call surgeon office or pre surgery nurse liaison [phone] if any additional questions.
--- NOTE | 2022-05-19 07:29 | PM.HPGS ---
History of Present Illness History of Present Illness Consent: Risks, benefits, and alternatives have been discussed and questions answered. Patient agrees to proceed with procedure. Chief complaint: Bilateral Kidney Stones Narrative: Jeremiah Maldonado is a 71 year old male who has been struggling with bilateral ureteral stone since February 2022. In February he underwent bilateral ureteroscopy. Stones in his right ureter were washed back into his right kidney were he have larger stones. He has on both Brilinta and aspirin she has made intervention difficulty. Recent KUB shows several stones in the right ureter and at least 1 in the left. He also has a sizable stone in the left lower pole calyx. After discussion of opted so we elected to proceed with cystoscopy with bilateral ureteroscopy, laser lithotripsy, stone extraction possible retrograde pyelography and stent placement. He is aware of the risk including, but not limited to, adverse cardiopulmonary events, need for additional therapy and hematuria. Review of Systems Cardiovascular: Cardiovascular: Denies chest pain, Denies lightheadedness, Denies palpitations and Denies dyspnea Respiratory: Respiratory: Denies dyspnea Gastrointestinal: Gastrointestinal: Denies diarrhea, Denies nausea and Denies vomiting Genitourinary: Genitourinary: Denies hematuria and Denies dysuria Endocrine: Endocrine: Denies palpitations PMFSH Past Medical History Medical History Aortic valve stenosis Bilateral carpal tunnel syndrome Bradycardia Depression Elevated PSA Essential hypertension Faulty mitral valve GERD (gastroesophageal reflux disease) Hypertension Kidney stone Mixed hypercholesterolemia and hypertriglyceridemia Obesity Ruptured disc, cervical Surgical History Surgical History H/O prostate biopsy (~03/2020) History of back surgery History of cardiac cath (~07/2020) History of carpal tunnel surgery Both hands and both elbows 01/2019 History of coronary artery stent placement History of knee replacement History of neck surgery History of rotator cuff surgery Family History Family History Other Acute myocardial infarction Other Hypertension Social History Social History Social History: Caffeine- Coffee, 3-4 cups daily Smoking status: Never smoker Alcohol intake: current Drinks per week: 2 Alcohol use details: beer, Substance use: never Substance use type: does not use Lack of Transportation: No Lack of Food: Never True Current Housing: I Have Housing Concerned About Future Housing: No Difficulty Paying Gas/Electric Bills: No Difficulty Paying for Meds: No Currently Unemployed: No Education: High School Diploma/GED Difficulty w/ Childcare or Family Care: No Living arrangements: with family Additional living arrangements comments: Spiritual care concerns: No Meds Home Medications and Allergies Home Medications Medication Instructions Recorded Confirmed Type calcium carbonate 600 mg calcium 600 mg PO DAILY 04/04/19 05/13/22 History (1,500 mg) tablet (Calcium) furosemide 20 mg tablet (Lasix) 20 mg PO QAM #90 tabs 11/29/19 05/13/22 Rx nitroglycerin 0.4 mg sublingual 0.4 mg sublingual Q5M PRN chest 01/02/21 05/13/22 History tablet pain ascorbic acid (vitamin C) 500 mg 500 mg PO DAILY 01/23/22 05/13/22 History chewable tablet aspirin 81 mg tablet,delayed 81 mg PO DAILY 01/23/22 05/13/22 History release atorvastatin 40 mg tablet 40 mg PO DAILY #90 tabs 01/23/22 05/13/22 Rx clobetasol 0.05 % topical cream 1 applic topical BID #60 grams 01/23/22 05/13/22 Rx metoprolol succinate 25 mg 25 mg PO HS 01/23/22 05/13/22 History tablet,extended release 24 hr multivitamin (Multiple Vitamin
[2022-05-22] VITALS (8 sets, daily range): BP systolic 137–161; BP diastolic 71–88; PULSE 55–67; RESP 12–20; TEMP 36.3–36.7; O2SAT 94–100
--- NOTE | ~2022-05-22 | XR_ITS ---
EXAMINATION: XR retrograde pyelo w/stent BI DATE: 05/22/2022 13:00 INDICATION: Bilateral internal ureteral stent exchange TECHNIQUE: Fluoroscopic images from a bilateral internal ureteral stent exchange are submitted for re view. 118 seconds of fluoroscopy time. 139 fluoroscopic images. FINDINGS: There are double-J internal ureteral stent projecting in expected position, with proximal [place] loop a t the level of the renal pelvis and distal loop in the pelvis within the bladder lumen. IMPRESSION: 1. Bilateral internal ureteral stent exchange. Please refer to real-time procedural findings for de tails. Reviewed, dictated and finalized at location L. NATOR IMPRESSION: 1. Bilateral internal ureteral stent exchange. Please refer to real-time proc edural findings for details.
--- NOTE | 2022-05-22 06:43 | WPDHPUPDATE1 ---
History and Physical Update Update Date/Time: 05/22/22 06:43 History and Physical has been reviewed, including an updated exam of the patient. There are NO changes in the patient's condition. Risks, benefits, and alternatives have been discussed and questions answered. Patient agrees to proceed with procedure.
--- NOTE | 2022-05-22 09:27 | ECG_ITS ---
Measurements Intervals [place] Rate: 53 P: 42 CA: 190 QRS: 0 QRSD: 103 T: 38 QT: 444 QTc: 417 Interpretive Statements SINUS BRADYCARDIA EARLY PRECORDIAL R/S TRANSITION BORDERLINE ECG COMPARED TO ECG 01/11/2019 11:08:11 NO SIGNIFICANT CHANGES Electronically Signed On 05-22-2022 9:49:12 HULL BUILDER by Melecio Asencio D.O.
[2022-05-22] MEDS: LACTATED RINGERS 1,000 ML 30 ML IV CONT ×2 (10:00→13:04)
--- NOTE | 2022-05-22 10:38 | WPDANESEPPF ---
Anes - Initial Pre Proc Eval Procedure: Operation Date: 05/22/22 11:30 Proposed Procedures p Cystoscopy, Bilateral Ureteroscopy, Possible Bilateral Retrograde Pyelogram, Bilateral Ureteral Stent Placement, Holmium Laser Lithotripsy with Stone Extraction - Daniel Montes MD Date/Time: 05/22/22 10:38 Surgeon: Daniel Montes MD Pre Op Diagnosis: Bilateral Kidney Stones Patient Data Age: 71 Gender: M Height: 1.83 m Weight: 114.3 kg Last Vital Signs Temp 97.3 F L 05/22/22 09:22 Pulse 58 L 05/22/22 09:22 Resp 20 05/22/22 09:22 BP 139/75 05/22/22 09:22 Pulse Ox 99 05/22/22 09:22 O2 Del Method Room Air 05/22/22 09:22 Allergies Allergy/AdvReac Type Severity Reaction Status Date / Time No Known Allergies Allergy Verified 05/22/22 10:17 Home Medications Medication Instructions Recorded Confirmed Type calcium carbonate 600 mg calcium 600 mg PO DAILY 04/04/19 05/22/22 History (1,500 mg) tablet (Calcium) furosemide 20 mg tablet (Lasix) 20 mg PO QAM #90 tabs 11/29/19 05/22/22 Rx nitroglycerin 0.4 mg sublingual 0.4 mg sublingual Q5M PRN chest 01/02/21 05/13/22 History tablet pain ascorbic acid (vitamin C) 500 mg 500 mg PO DAILY 01/23/22 05/22/22 History chewable tablet aspirin 81 mg tablet,delayed 81 mg PO DAILY 01/23/22 05/22/22 History release atorvastatin 40 mg tablet 40 mg PO DAILY #90 tabs 01/23/22 05/22/22 Rx clobetasol 0.05 % topical cream 1 applic topical BID #60 grams 01/23/22 05/22/22 Rx metoprolol succinate 25 mg 25 mg PO HS 01/23/22 05/22/22 History tablet,extended release 24 hr multivitamin (Multiple Vitamins 1 tablet PO DAILY 01/23/22 05/22/22 History tablet) ticagrelor 90 mg tablet (Brilinta) 90 mg PO BID 01/23/22 05/22/22 History finasteride 5 mg tablet (Proscar) 5 mg PO QAM #90 tabs 03/31/22 05/22/22 Rx escitalopram oxalate 10 mg tablet 10 mg PO HS 05/13/22 05/22/22 History esomeprazole magnesium 20 mg 40 mg PO HS 05/13/22 05/22/22 History capsule,delayed release hyoscyamine sulfate 0.125 mg tablet 0.25 mg PO BID 05/13/22 05/22/22 History icosapent ethyl 1 gram capsule 2 g PO BID 05/13/22 05/22/22 History (Vascepa) losartan 50 mg tablet 50 mg PO HS 05/13/22 05/22/22 History tamsulosin 0.4 mg capsule 0.8 mg PO HS 05/13/22 05/22/22 History Patient hx anesthesia problems: none Family hx anesthesia problems: none Results Review: All pre-operative results and documents have been reviewed as part of the pre-operative evaluation. [facility] Past Medical History Medical History Aortic valve stenosis Bilateral carpal tunnel syndrome Bradycardia Depression Elevated PSA Essential hypertension Faulty mitral valve GERD (gastroesophageal reflux disease) Hypertension Kidney stone Mixed hypercholesterolemia and hypertriglyceridemia Obesity Ruptured disc, cervical Surgical History Surgical History H/O prostate biopsy (~03/2020) History of back surgery History of cardiac cath (~07/2020) History of carpal tunnel surgery Both hands and both elbows 01/2019 History of coronary artery stent placement History of knee replacement History of neck surgery History of rotator cuff surgery Family History Family History Other Acute myocardial infarction Other Hypertension Social History Social History Social History: Caffeine- Coffee, 3-4 cups daily Smoking status: Never smoker Alcohol intake: current Drinks per week: 2 Alcohol use details: beer, Substance use: never Substance use type: does not use Lack of Transportation: No Lack of Food: Never True Current Housing: I Have Housing Concerned About Future Housing: No Difficulty Paying Gas/Electric Bills: No Difficulty Paying for Meds: No Currently Unemployed
[2022-05-22] MEDS: ceFAZolin 2 GM/D5W 50 ML 2 GM/50 ML BAG IVPB (11:25)
[2022-05-22] MEDS: LIDOCAINE HCL 2% GEL UROJET 10 ML PKG MUCOUS MEM (11:49)
--- NOTE | 2022-05-22 12:59 | P.OP_ITS ---
Procedure Note - Detailed Date of Procedure 05/22/22 Pre-op Diagnosis Bilateral ureteral and renal stones Post-op Diagnosis Same Procedure Performed cystoscopy, bilateral stent removal, bilateral ureteroscopy with laser lithotripsy and stone extraction, bilateral retrograde pyelography and bilateral stent replacement Surgeon Daniel Montes MD Anesthesia General Description of Procedure patient is brought to the operative suite was prepped draped in routine sterile fashion while in dorsal lithotomy position after the uneventful induction of a general LMA anesthetic. Cystoscopy is undertaken with a 21 F rigid cystoscope. There was no urethral stricture. He has significant lateral lobe hyperplasia w ith a high median bar. Bladder mucosa shows some hyperemia from stent irritation but of this otherwise unremarkable. This point forward I performed essentially identical procedures for each ureteral and renal calculi. I grasped the indwelling stent from each side and brought it to the external urethral meatus. A 0.035 in glidewire was advanced into the renal pelvis and the distal ureter was dilated with an 8 F 10 F dilator. A 12 14 F access sheath was placed and flexible ureteroscopy his used to identify the ureteral stones. On the right side he has 2 stones. These are dusted with a 200 micron holmium laser fiber. All fragments are removed. Retrograde pyelography was used to obtain in inspect the right collecting system. He has a stone in the right lower pole which we opted to leave alone. There was a small stone in the right upper pole that I was able to extract intact. Cyst on the left side he has just 1 stone in his ureter that removed intact. I did perform a retrograde pyelogram and inspected the upper pole calices on that side. There was 1 stone which I fractured using the holmium laser and then removed the pieces. The left side he also has a known stone in the left lower pole which we did not treat. Bilateral 4.8 F ureteral stents were placed with proximal coil in the kidney and distal coil in the bladder. Scopes and wires removed he was taken to the recovery room good condition. Drains Yes Pathology Yes Complications No immediate complications Condition Stable
== END 2022-05-22 15:07 | disposition home or self-care (01) ==
PROVIDERS: PCP Internal Medicine; Visit Provider Urology
PROC: (CPT 52352; principal; 2022-05-22 11:30)
DX: N20.2 Calculus of kidney with calculus of ureter (principal); I10 Essential (primary) hypertension; E78.2 Mixed hyperlipidemia; K21.9 Gastro-esophageal reflux disease without esophagitis; I35.0 Nonrheumatic aortic (valve) stenosis; F32.A Depression, unspecified; E66.9 Obesity, unspecified; Z68.34 Body mass index [BMI] 34.0-34.9, adult; Z95.5 Presence of coronary angioplasty implant and graft; Z79.82 Long term (current) use of aspirin; Z79.01 Long term (current) use of anticoagulants
CPT/HCPCS: 52356; 74420; 82365; 88300; 93005; C1769; C2617; J0690; J1100; J2405; J2704; J3010; J7120

== ENCOUNTER 2022-06-16 09:52 | Outpatient (CLI) | payer MEDICARE, OTHER, SELFPAY ==
--- NOTE | ~2022-06-16 | XR_ITS ---
. EXAMINATION: XR abdomen/kub 1V DATE: 06/16/2022 10:14 INDICATION: Bilateral kidney stones. TECHNIQUE: A supine view of the abdomen on 2 radiographs was obtained. COMPARISON: CT abdomen and pelvis 03/05/2022 FINDINGS: There are no dilated loops of bowel. There is a left internal ureteral stent in expected po sition. There are phleboliths in left pelvis. There are multiple stones in each kidney measuring up t o 6 mm on the left. IMPRESSION: 1. Stones in the kidneys measuring up to 6 mm on the left. 2. Left internal ureteral stent in expected position. Reviewed, dictated and finalized at location A.
== END 2022-06-16 09:53 | disposition home or self-care (01) ==
LOC: ANHIMG 09:54
PROVIDERS: PCP Internal Medicine; Visit Provider Urology
DX: N20.0 Calculus of kidney (principal)
CPT/HCPCS: 74018

== ENCOUNTER 2022-06-20 08:00 | Outpatient (RCR) | payer MEDICARE, OTHER, SELFPAY ==
--- NOTE | 2022-06-24 11:33 | PCCPR ---
Patient has been on hold (last 17 days) pending work up and treatment for kidney stones. Per phone call with patient today, he has been feeling very weak and short of breath and now utilizing a walker for support. Recent CT scan continues to show multiple stones now in both kidneys. Further states he has been in contact with the senior policy analyst regarding the shortness of breath and has an appointment 06/30, recent work up at the hospital did not provide any explanation for SOB. Will follow up with patient again after 06/30 to determine possible need for early discharge.
== END 2022-07-03 09:07 | disposition home or self-care (01) ==
PROVIDERS: PCP Internal Medicine
DX: Z95.2 Presence of prosthetic heart valve (principal)
CPT/HCPCS: 93798

== ENCOUNTER 2022-06-23 15:05 | Outpatient (CLI) | payer MEDICARE, OTHER, SELFPAY ==
--- NOTE | ~2022-06-23 | CT_ITS ---
EXAMINATION: CT abdomen pelvis wo con DATE: 06/23/2022 15:30 INDICATION: Bilateral kidney stones. TECHNIQUE: Computed tomography (CT) of the abdomen and pelvis was performed without intravenous contr ast. Automated exposure control and iterative reconstruction technique were employed. The dose-length product was 545.02 mGy-cm. COMPARISON: CT abdomen and pelvis 03/05/2022 FINDINGS: The visualized portions of the lung bases demonstrate mild atelectasis. No pleural effusion . The heart size is normal. There are coronary artery calcifications. No pericardial effusion. There are changes of aortic valve replacement. There is a small sliding hiatal hernia. The liver, spleen, g allbladder, pancreas, and adrenal glands are normal. There are approximately 8 stones in right kidney measuring up to 5 mm. There are approximately 7 stones in left kidney measuring up to 10 mm. There i s a left internal ureteral stent in expected position. The prostate is moderately enlarged. There is diverticulosis of the colon without evidence of diverticulitis. There are no dilated loops of bowel. The appendix is normal. There is a 3.4 cm infrarenal aortic aneurysm. Aortic atherosclerosis is noted . There are no pathologically enlarged lymph nodes. There is no free intraperitoneal fluid. There is severe thoracic spondylosis and mild lumbar spondylosis. IMPRESSION: 1. Bilateral nonobstructing kidney stones. 2. Left internal ureteral stent in expected position. 3. 3.4 cm fusiform aneurysm of infrarenal aorta. Reviewed, dictated and finalized at location A.
== END 2022-06-23 15:06 | disposition home or self-care (01) ==
LOC: ANHIMG 15:17
PROVIDERS: PCP Internal Medicine; Visit Provider Urology
DX: N20.2 Calculus of kidney with calculus of ureter (principal); I71.20 Thoracic aortic aneurysm, without rupture, unspecified
CPT/HCPCS: 74176

== ENCOUNTER 2022-12-16 12:24 | Outpatient (CLI) | payer MEDICARE, SELFPAY ==
--- NOTE | ~2022-12-16 | XR_ITS ---
EXAMINATION: XR abdomen/kub 1V DATE: 12/16/2022 12:38 INDICATION: Bilateral kidney stones. TECHNIQUE: A supine view of the abdomen on 2 radiographs was obtained. COMPARISON: CT abdomen and pelvis 06/23/2022 FINDINGS: There are no dilated loops of bowel. There are phleboliths in the pelvis. There are stones in the kidneys measuring up to 4 mm on the left. There is an 8 x 4 mm stone in right ureter at L3. IMPRESSION: 1. 8 x 4 mm stone in proximal right ureter. 2. Bilateral kidney stones. Reviewed, dictated and finalized at location E.
== END 2022-12-16 12:25 | disposition home or self-care (01) ==
LOC: ANHIMG 12:26
PROVIDERS: PCP Internal Medicine; Visit Provider Urology
DX: N20.2 Calculus of kidney with calculus of ureter (principal)
CPT/HCPCS: 74018

== ENCOUNTER 2022-12-24 14:14 | Outpatient (CLI) | payer MEDICARE, SELFPAY ==
--- NOTE | ~2022-12-24 | CT_ITS ---
EXAMINATION: CT abdomen pelvis wo con DATE: 12/24/2022 14:31 INDICATION: Bilateral kidney stones TECHNIQUE: Computed tomography (CT) of the abdomen and pelvis was performed without intravenous contr ast. Automated exposure control and iterative reconstruction technique were employed. Exam dose: 651 .23 mGy-cm total exam DLP. COMPARISON: 12/16/2022 KUB 06/23/2022 CT abdomen pelvis FINDINGS: The lung bases are clear of infiltrate or consolidation. Normal heart size. Status post aor tic valve replacement. Coronary artery stent and/or coronary artery calcification. No pericardial or pleural effusion. Small sliding hiatal hernia. There are some thickening of the wall of the distal esophagus which may be secondary to esophagitis. No hepatic, splenic or pancreatic space-occupying mass lesion. The gallbladder is contracted. No bile duct or pancreatic duct dilatation. There is a calcification o f the uncinate process of the pancreas which may indicate mild chronic pancreatitis. Normal morphology of the adrenal glands. Numerous bilateral nonobstructing renal calculi. 5.4 x 4.5 mm calculus in the dependent aspect of the urinary bladder. Moderate bladder wall thickenin g, likely secondary to prostatomegaly. Small bilateral fat-containing inguinal hernias and small fat-containing umbilical hernia. There is atherosclerotic calcification of the abdominal aorta and at the origin the celiac and superi or mesenteric arteries. 3.4 cm infrarenal fusiform abdominal aortic aneurysm. No intraperitoneal or retroperitoneal or pelvic mass lesion or adenopathy or ascites. No evidence of appendicitis. Diverticulosis of the left and right colon; no CT evidence of diverticul itis. No bowel obstruction or intraperitoneal free air. Degenerative changes of the thoracic and lumbar spine. No suspicious osteolytic or osteoblastic lesio ns are noted. IMPRESSION: Status post aortic valve replacement Coronary artery stent and/or coronary artery disease Small sliding hiatal hernia, probable distal esophagitis 3.4 cm infrarenal fusiform abdominal aortic aneurysm Bilateral nonobstructive nephrolithiasis 5.4 x 4.5 mm calculus in the urinary bladder Prostatomegaly, moderate bladder wall thickening Diverticulosis of the colon; no CT evidence of diverticulitis Small bilateral fat-containing inguinal hernias and small fat-containing umbilical hernia Reviewed, dictated and finalized at Location A. Reviewed, dictated and finalized at location B. IMPRESSION: Status post aortic valve replacement Coronary artery stent and/or coronary artery disease Small sliding hiatal hernia, probable distal esophagitis 3.4 cm infrarenal fusiform abdominal aortic aneurysm Bilateral nonobstructive nephrolithiasis 5.4 x 4.5 mm calculus in the urinary bladder Prostatomegaly, moderate bladder wall thickening Diverticulosis of the colon; no CT evidence of diverticulitis Small bilateral fat-containing inguinal hernias and small fat-containing umbili kaitlin hernia
== END 2022-12-24 14:15 | disposition home or self-care (01) ==
PROVIDERS: PCP Internal Medicine; Visit Provider Urology
DX: N20.0 Calculus of kidney (principal); K40.20 Bilateral inguinal hernia, without obstruction or gangrene, not specified as recurrent; K57.30 Diverticulosis of large intestine without perforation or abscess without bleeding; K44.9 Diaphragmatic hernia without obstruction or gangrene; N40.0 Benign prostatic hyperplasia without lower urinary tract symptoms; N21.0 Calculus in bladder; Z95.2 Presence of prosthetic heart valve
CPT/HCPCS: 74176

== ENCOUNTER 2023-01-30 08:03 | Outpatient (RCR) | payer MEDICARE, SELFPAY ==
--- NOTE | 2023-01-30 09:42 | OPREHPOC ---
Outpatient Therapy Plan of Care This is a Multidisciplinary Plan of Care that may contain components documented by all disciplines (PT, OT, and ST.) PT Problem 1 PT Problem #1 Knowledge Deficit PT Goal 1 Goal Patient to demonstrate independence with HEP Target Visit 5 PT Problem 2 PT Problem #2 Pain PT Goal 1 Goal Patient to report hgihest pain at 2/10 with house hold tasks Target Visit 10 PT Problem 3 PT Problem #3 Impaired Range of Motion PT Goal 1 Goal Patient to demonstrate 10 deg of R ankle DF and 50 deg of R ankle PF to return to stair navigation at PLOF Target Visit 10 PT Problem 4 PT Problem #4 Impaired Functional Mobil PT Goal 1 Goal 1. Patient to demonstrate 5/5 R ankle strength to improve ability to ambulate on uneven surfaces at PLOF 2. Patient to improve LEFS by 20% Target Visit 10
--- NOTE | 2023-01-30 09:42 | PTOPEVAL1 ---
Assessment and note entered by Brit Babb DPT Evaluation Information Assessment Status Evaluation Diagnosis R ankle pain Onset 01/27/23 Subjective Information Patient reports about a year ago he rolled his R ankle and was having other health issues and did not do anything about it until now. He reports he does not remember which direction he rolled it. He reports in the last year he has also had surgery on the R knee that causes him pain. He reports ankle pain is primarily on the lateral aspect of the ankle. Patient reports he has increased pain with walking on uneven ground, navigating stairs, and standing for long periods of time. He reports he is retired but has a lot of yard work and likes to camp. Reported Pain Level Pain Score 5: Self Report Assessment PT Clinical Summary Patient is a 72 year old male who presents to PT with R ankle pain. Patient demonstrates decreased R ankle ROM, decreased R ankle strength and impaired gait mechanics impairing his ability to complete yard work, navigate stairs and complete house hold tasks. Patient would benefit from skilled PT to address impairments and return to [facility]. Plan of Care Interventions Electrical Stimulation,Gait Training,Hot Pack/Cold Pack,Manual Therapy,Neuro Re-education,Patient/ Caregiver Educati,Therapeutic Activities, Therapeutic Exercise PT Services Indicated Yes Treatment Frequency and 2x weekly for 10 visits Duration These treatments will address the objective and functional deficits as defined above. The patient will be advanced safely and appropriately in order for the patient to progress towards his/her prior level of function. Additional exercises will be introduced and as well as a comprehensive home exercise program upon discharge, if needed, ?to ensure carryover of functional gains achieved in the clinic. This treatment plan has been reviewed and agreement upon by the patient.
--- NOTE | 2023-03-02 08:31 | OPREHPOC ---
Outpatient Therapy Plan of Care This is a Multidisciplinary Plan of Care that may contain components documented by all disciplines (PT, OT, and ST.) PT Problem 1 PT Problem #1 Knowledge Deficit PT Goal 1 Goal Patient to demonstrate independence with HEP Target Visit 5 Progress Met PT Problem 2 PT Problem #2 Pain PT Goal 1 Goal Patient to report hgihest pain at 2/10 with house hold tasks Target Visit 10 Progress Met PT Problem 3 PT Problem #3 Impaired Range of Motion PT Goal 1 Goal Patient to demonstrate 10 deg of R ankle DF and 50 deg of R ankle PF to return to stair navigation at PLOF Target Visit 10 Progress Met PT Problem 4 PT Problem #4 Impaired Functional Mobil PT Goal 1 Goal 1. Patient to demonstrate 5/5 R ankle strength to improve ability to ambulate on uneven surfaces at PLOF 2. Patient to improve LEFS by 20% Target Visit 10 Progress Met
--- NOTE | 2023-03-02 08:31 | PTOPDC ---
Assessment and note entered by Brit Babb DPT Evaluation Information Assessment Status Discharge Diagnosis R ankle pain Onset 01/27/23 Subjective Information Patient reports his ankle has improved since starting PT. He reports he has improved ability to walk, standing and navigate stairs. He reports he has not been limited by pain at all. He reports he is independent with HEP. Reported Pain Level Pain Score 0: Self Report Assessment PT Clinical Summary Mr. Maldonado was seen for 10 visits of skilled PT with great progress and all goals met. He has been able to return to standing, walking and stair navigation with no increase in pain. Patient reports he has no limitations due to ankle pain. He is independent with HEP and is appropriate for DC at this time. Plan of Care PT Services Indicated No
== END 2023-03-02 08:41 | disposition home or self-care (01) ==
LOC: CHSPT 08:03
PROVIDERS: Visit Provider Nurse Practitioner
DX: S93.402D Sprain of unspecified ligament of left ankle, subsequent encounter (principal)
CPT/HCPCS: 97110; 97112; 97140; 97150; 97161

== ENCOUNTER 2023-06-16 11:40 | Outpatient (CLI) | payer MEDICARE, SELFPAY ==
--- NOTE | ~2023-06-16 | XR_ITS ---
XR abdomen/kub 1V 06/16/2023 12:04 Indication: Renal stones Procedure: KUB Comparison: 12/16/2022 Findings: There are bilateral renal stones. Bowel gas pattern is nonobstructive. Moderate colonic fec al loading. Impression: 1: Bilateral nephrolithiasis. Reviewed, dictated and finalized at location L. Impression: 1: Bilateral nephrolithiasis.
== END 2023-06-16 11:41 | disposition home or self-care (01) ==
LOC: ANHIMG 11:47
PROVIDERS: PCP Internal Medicine; Visit Provider Urology
DX: N20.0 Calculus of kidney (principal)
CPT/HCPCS: 74018

== ENCOUNTER 2024-06-07 14:29 | Outpatient (CLI) | payer MEDICARE, SELFPAY ==
--- NOTE | ~2024-06-07 | XR_ITS ---
XR abdomen/kub 1V Ordering provider: Daniel Montes MD History: . Bi kidney stones FOLLOW UP . Comparison: None. FINDINGS: BOWEL: Nonobstructive bowel gas pattern. ORGANOMEGALY: None. SIGNIFICANT PATHOLOGIC CALCIFICATIONS: Bilateral kidney stones. OTHER: No free air is seen under the diaphragm. IMPRESSION: NO ACUTE ABDOMINAL FINDINGS. Bilateral kidney stones. Noncontrast CT is advised for confirmation. Reviewed, dictated and finalized at location A.
--- OUTSIDE RECORDS SUMMARY | 2024-06-07 16:19 | XMS_ITS | Clinical Summary ---
Author Organization [facility] Address [facility] [place] [address] Care Team Providers Care Sheet Manager Name Role Phone Baldemar Lackey DO Primary Care Provider [phone] Brett Parrish MD Unavailable Allergies No known active allergies Medications esomeprazole 40 MG capsule Take 1 capsule (40 mg total) by mouth nightly. 04/05/19 20 Active escitalopram 10 MG tablet Take 1 tablet (10 mg total) by mouth nightly. 04/04/19 20 Active finasteride (PROSCAR) 5 MG tablet Take 1 tablet (5 mg total) by mouth every morning. 03/07/20 22 Active Aspirin 81 MG Cap Take 81 mg by mouth daily. 08/06/19 23 Active atorvastatin (LIPITOR) 40 MG tablet Take 1 tablet (40 mg total) by mouth nightly at bedtime. 90 tablet 3 08/03/19 24 Active furosemide (LASIX) 20 MG tablet Take 1 tablet (20 mg total) by mouth daily. 90 tablet 3 08/03/19 24 Active losartan (COZAAR) 50 MG tablet Take 1 tablet (50 mg total) by mouth nightly. 90 tablet 3 08/03/19 24 Active metoprolol succinate ER (TOPROL-XL) 25 MG 24 hr tablet Take 1 tablet (25 mg total) by mouth daily. 90 tablet 3 08/03/19 24 Active VASCEPA 1 g capsule Take 2 capsules (2 g total) by mouth 2 (two) times a day. Take with food. 180 capsule 3 10/12/19 24 Active amoxicillin (AMOXIL) 500 MG capsule Take 4 capsules (2,000 mg total) by mouth once. 02/02/20 24 Active ISOSORBIDE MONONITRATE ER 60 MG 24 hr tablet TAKE 1 TABLET BY MOUTH NIGHTLY AT BEDTIME 90 tablet 10/01/19 22 022 Discontinued Active Problems Problem Noted Date Diagnosed Date History of transcatheter aortic valve replacemen t (TAVR) 02/15/2024 Snoring 02/12/2022 Assessment & Plan (02/12/2022 11:01 AM BUSINESS TRAVEL CONSULTANT): Home sleep study Dyslipidemia 06/04/2019 Essential hypertension Assessment & Plan (04/02/2023 12:38 PM BUSINESS TRAVEL CONSULTANT): His blood pressure is well-controlled today. Continue antihypertensive therapy. Assessment & Plan (06/14/2022 8:42 PM CDT): Continue antihypertensive therapy. Coronary artery disease invo lving [place] coronary artery of [place] heart without angina pectoris Assessment & Plan (04/02/2023 12:38 PM BUSINESS TRAVEL CONSULTANT): He is status post PCI to the LAD and right coronary artery. Continue aspirin, atorvastatin, Vascepa. Assessment & Plan (06/14/2022 8:41 PM CDT): He is status post PCI to the LAD and right coronary artery. Continue dual antiplatelet therapy. Assessment & Plan (12/30/2021 1:32 PM CDT): He is status post PCI to the LAD and right coronary artery. Continue dual antiplatelet therapy. Nonrheumatic aortic valve stenosis Assessment & Plan (04/02/2023 12:37 PM BUSINESS TRAVEL CONSULTANT): I reviewed his 1 year echocardiogram and it shows a well-functioning bioprosthetic aortic valve. The velocity is increased from 2.5-2.99, but I do not think that this is significant especially given that his symptoms have not changed. 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 Continue antibiotic prophylaxis. Assessment & Plan (12/30/2021 1:33 PM CDT): Even though his velocity is not above 4, his mean gradient on both Echo Is above 40 mmHg and He Is Describing Symptoms concerning for Symptomatic Severe Aortic Stenosis. I Recommended That He Undergo Aortic Valve Replacement. Given His Recent PCI, I Explained to Him That He Would Have To Wait for At Least 3 Months from the PCI Date If He Were to Have Cardiac Surgery. I Also Explained the Option of Transcatheter Aortic Valve Replacement. His valve also looks like it could be bicuspid. I discussed options with Jeremiah Maldonado regarding surgical aortic valve replacement versus transcatheter aortic valve replacement. I explained that with surgical aortic valve replacement there is a choice between 2 types of valves including bioprosthetic valves versus mechanical valves. I explained that mechanical valves have a longer durability and require anticoagulation for life. If she were to have a problem with mechanical valve dysfunction, this would require a repeat open heart surgery in the future. I explained that bioprosthetic aortic valves have shorter durability, but do not require anticoagulation. Bioprosthetic aortic valves allow for future interventions such as TAVR. I discussed with her that with TAVR, the only option was for a bioprosthetic aortic valve. Given His age, explained that with a bioprosthetic aortic valve there would likely be the need for future intervention. I explained that doing 2 consecutive TAVR is at this time does not have as much data. I did discuss the procedure of transcatheter aortic valve replacement to the patient. I explained the procedure in detail including transfemoral access with placement of a balloon mounted valve inside the existing aortic valve. I explained the risks and benefits that include but are not limited to: bleeding, infection, vascular complication (10%), cerebrovascular accident (3 to 5%), permanent pacemaker placement (10%), myocardial infarction (1 to 2%), aortic root rupture (1 2%), valve embolization (1-2%) and even (1 to 2%). I did explain to the patient that if we were to proceed with transcatheter aortic valve replacement, we would have to proceed with the TAVR work-up that includes cardiac catheterization, CT scan and surgical evaluation. Resolved Problems Problem Noted Date Diagnosed Date Resolved Date Sepsis ([facility]) 06/09/2022 Severe aortic valve stenosis 02/05/2022 08/04/2022 Assessment & Plan (06/14/2022 8:41 PM CDT): He is status post transfemoral TAVR. His 1 month echo shows stable valve function. Repeat echo in 1 year. Continue dental prophylaxis with abx. Assessment & Plan (02/12/2022 11:00 AM BUSINESS TRAVEL CONSULTANT): s/p Successful transcatheter aortic valve replacement with Gage Linda S3 Ultra #26 mm on 02/05/22 EKG today revealed SR. Groins stable Repeat echo in 1 month Cardiac rehab ordered Antibiotic prophylaxis encouraged prior to any dental cleaning or procedure - issued Nonrheumatic aortic valve stenosis 06/04/2019 06/27/2019 Dyspnea 06/27/2019 Immunizations Name Administration Dates Next Due Fluzone High Dose - >Age 65 (Prefilled Syringe) 12/02/2019,11/21/2019 PFIZER COVID-19 BIVALENT (12 +) mRNA, LNP-S, PF, 30 MCG/0.3 ML DOSE 12/05/2021 Pneumococcal (Pneumovax 23) 12/22/2018 Shingrix 01/19/2019 Family History Medical History Relation Comments Heart Attack Father Valve Disease Mother Heart Attack Sister Relation Status Comments Brother Alive Father (Age 58) Maternal Grandfather (Age 67) Maternal Grandmother (Age 85) Mother Alive Paternal Grandfather (Age 83) Paternal Grandmother (Age 90) Sister Alive Social History Tobacco Use Types Packs/Day Years Used Date Smoking Tobacco: Never Smokeless Tobacco: Never Tobacco Cessation:Counseling Given: Not Answered Alcohol Use Standard Drinks/Week Comments Yes 8.3 (1 standard drink = 0.6 oz p ure alcohol) Humiliation, Afraid, Rape, and Kick questionnair e Answer Date Recorded Within the last year, have y ou been afraid of your partner or ex-partner? No 06/27/2022 Within the last year, have y ou been humiliated or emotionally abused in other ways by your partner or ex-partner? No Within the last year, have y ou been kicked, hit, slapped, or otherwise physically hurt by your partner or ex-partner? No 06/27/2022 Within the last year, have y ou been raped or forced to have any kind of sexual activity by your partner or ex-partner? No 06/27/2022 Social Connection and Isolat ion Panel [NHANES] Answer Date Recorded In a typical week, how many times do you talk on the phone with family, friends, or neighbors? More than three times a week 06/27/2022 How often do you get togethe r with friends or relatives? Twice a week 06/27/2022 How often do you attend chur ch or jain services? Never 06/27/2022 Do you belong to any clubs o r organizations such as shinto groups, unions, fraternal or athletic groups, or school groups? No 06/27/2022 How often do you attend meet ings of the clubs or organizations you belong to? Never 06/27/2022 Are you , , di vorced, , never , or living with a partner? 06/27/2022 AUDIT-C Answer Date Recorded Q1: How often do you have a drink containing alc ohol? 2-3 times a week 06/27/2022 Q2: How many drinks containi ng alcohol do you have on a typical day when you are drinking? 1 or 2 06/27/2022 Q3: How often do you have si x or more drinks on one occasion? Less than monthly 06/27/2022 Overall Financial Resource Strain (CARDIA) Answe r Date Recorded How hard is it for you to pa y for the very basics like food, housing, medical care, and heating? Not hard at all 06/27/2022 [facility] Occupat ional Health - Occupational Stress Questionnaire Answer Date Recorded Do you feel stress - tense, restless, nervous, or anxious, or unable to sleep at night because your mind is troubled all the time - these days? Only a little 06/27/2022 Exercise Vital Sign Answer Date Recorde d On average, how many days pe r week do you engage in moderate to strenuous exercise (like a brisk walk)? 0 days 06/27/2022 On average, how many minutes do you engage in exercise at this level? 0 min 06/27/2022 Hunger Vital Sign Answer Date Recorded Within the past 12 months, y ou worried that your food would run out before you got the money to buy more. Never true 06/28/19 23 Within the past 12 months, t he food you bought just didn't last and you didn't have money to get more. Never true 06/27/2022 PRAPARE - Transportation Answer Date Re corded In the past 12 months, has l ack of transportation kept you from medical appointments or from getting medications? No 09/2022 In the past 12 months, has l ack of transportation kept you from meetings, work, or from getting things needed for daily living? No 06/27/2022 Housing Stability Vital Sign Answer Valente e Recorded In the last 12 months, was t here a time when you were not able to pay the mortgage or rent on time? No 06/27/2022 In the last 12 months, how many places have you lived? 1 06/27/2022 In the last 12 months, was t here a time when you did not have a steady place to sleep or slept in a penitentiary (including now)? No 06/27/2022 Sex and Gender Information Value Date Recorded Sex Assigned at Male 07/23/2023 8:58 AM CDT Legal Sex Male 11:27 PM BUSINESS TRAVEL CONSULTANT Gender Identity Male 07/23/2023 8:58 AM CDT Sexual Orientation Straight 07/23/2023 8: 58 AM CDT Last Filed Vital Signs Vital Sign Reading Time Taken Comments Blood Pressure 136/82 02/15/2024 9:15 AM BUSINESS TRAVEL CONSULTANT Pulse 65 02/15/2024 9:15 AM BUSINESS TRAVEL CONSULTANT Temperature 36.8 C (98.2 F) 06/28/2022 11:51 AM CDT Respiratory Rate 16 06/28/2022 11:51 AM CDT Oxygen Saturation 96% 02/15/2024 9:15 AM BUSINESS TRAVEL CONSULTANT Inhaled Oxygen Concentration - - Weight 126.6 kg (279 lb) 02/15/2024 9:15 AM BUSINESS TRAVEL CONSULTANT Height 180.3 cm (5' 11 ) 02/15/2024 9:15 AM BUSINESS TRAVEL CONSULTANT Body Mass Index 38.91 02/15/2024 9:15 AM BUSINESS TRAVEL CONSULTANT Plan of Treatment Upcoming Encounters Date Type Department Care Team (Late st Contact Info) Description 08/22/2024 9:00 AM CDT Office Visit [facility], [address] [address] Marija Banuelos, ANP- [facility]. [address] [id number] Health Maintenance Due Date Last Done Comments Colorectal Cancer Screening Colonoscopy (10 Years) 1950 RSV Immunization or 60+ Years (1 - Risk 60-74 years 1-dose series) 2010 Annual Medicare Wellness Visit 08/15/2015 Zoster Vaccines (2 of 2) 03/16/2019 01/19/2019 COVID-19 Vaccine ( season) 2023 12/05/2021, 06/25/2021, 12/20/2020, Additional history exists Influenza Adult (#1) 2023 11/27/2021, 12/02/2019, 11/21/2019 DTaP, Tdap and Td Vaccines (2 - Td or Tdap) 01/24/2032 01/23/2022 Pneumococcal Vaccine: 65+ Years Completed 12/02/2021, 12/22/2018 Hepatitis C Completed 06/27/2022 Meningococcal B Vaccine Aged Out No l onger eligible based on patient's age to complete this topic Meningococcal Vaccine Aged Out No april karla eligible based on patient's age to complete this topic RSV Immunizations Under 20 Months Aged Out No longer eligible based on patient's age to complete this topic Goals Goal Patient Goal Type Associated Problems Recent Progress Patient-Stated? Author Health - patient able to perform ADLs independently Lifestyle No Kameron Neff, RN Patient will return to prior living situation and remain independent in ADLs upon discharge from hospital Lifestyle No Gretchen Saldaña, RN Medical Devices Implanted Type Area Gym Manager Device Identifier Shelf Expiration Date Model / Serial / Lot Stent Ureteral 6fr 28cm Pigtl Crv Taper Tip Bldr Mrk - [id number] Implanted:Qt y: 1 on 06/10/2022 by Lalo Rubio MD at [facility] Stent Left: Ureter [employer] THEA [id number] 01/09/2025 [id number] 40 / / [id number] Valve Implant-01/21 Implanted:Qt y: 1 on 02/05/2022 by Shar Mack MD Valve Implant Aorta [employer]) THEA [id number] / [id number] / Procedures Procedure Name Priority Date/Time Associated Diagnosis Comments HC EIA QL HEPATITIS ABC B AG STAT 06/27/2022 6:38 PM CDT from Last 3 Months or Most Recently Relevant to Health Maintenance Results * HEPATITIS A,B,& C (06/27/2022 6:38 PM CDT) HEPATITIS B SURFACE AG NON-REACTIVE NON-REACT MILENA 06/27/2022 9:42 PM CDT [facility] HEP B CORE TOTAL AB NON-REACTIVE NON-REACT MILENA 06/27/2022 9:42 PM CDT [facility] HEP B SURFACE AB REACTIVE 06/27/2022 9:42 PM CDT [facility] HAV IGM NON-REACTIVE NON-REACT MILENA 06/27/2022 9:42 PM CDT [facility] HEPATITIS C AB NON-REACTIVE NON-REACT MILENA 06/27/2022 9:42 PM CDT [facility] 06/27/2022 6:38 PM CDT Fam Marrero DO LABORATORY Final Result [facility] [address] [place] [address], [place] [phone] from Last 3 Months or Most Recently Relevant to Health Maintenance Insurance [employer] Advance Directives * Full Code (Latest Code Status on File) Date Activated Date Inactivated Comments 06/27/2022 5:32 PM 06/28/2022 4:31 PM * Full Code Date Activated Date Inactivated Comments 06/09/2022 11:28 PM 06/13/2022 4:22 PM * Full Code Date Activated Date Inactivated Comments 02/05/2022 1:35 PM 02/06/2022 2:57 PM * Full Code Date Activated Date Inactivated Comments 02/05/2022 8:43 AM 02/05/2022 1:35 PM Care Teams Sheet Manager Relationship Specialty Start Date End Date Baldemar Lackey DO [address] [place] [address] PCP - General INTERNAL MEDICINE 04/22/19 Brett Parrish MD [facility]. [facility] [address] [place] [address] [employer] Associate CARDIOVASCULAR DISEASE 05/09/19
--- OUTSIDE RECORDS SUMMARY | 2024-06-07 16:19 | XMS_ITS | Encounter Summary ---
Author Organization [facility] Address [address] [place] [address] Care Team Providers Care Multimedia Author Name Role Phone Baldemar Lackey DO Primary Care Provider [phone] Brett Parrish MD Unavailable Encounter Details Date Type Department Care Team (Late Contact Info) Description 07/08/2021 [employer] Message Enc [facility], [address] [place], [place] [phone] Marija Banuelos, ANP-BC [facility]. [address] [place], [place] [id number] Lab Results Social History Tobacco Use Types Packs/Day Years Used Date Smoking Tobacco: Never Smokeless Tobacco: Never Alcohol Use Standard Drinks/Week Comments Yes 0 (1 standard drink = 0.6 oz pur e alcohol) AUDIT-C Answer Date Recorded Frequency of Alcohol Consumption 2-3 times a wee k 05/23/2019 Average Number of Drinks Not on file 020 Frequency of Binge Drinking Not on file 04/2019 Sex and Gender Information Value Date Recorded Sex Assigned at Male 07/23/2023 8:58 AM CDT Legal Sex Male 11:27 PM SHRINKER Gender Identity Male 07/23/2023 8:58 AM CDT Sexual Orientation Straight 07/23/2023 8: 58 AM CDT documented as of this encounter Plan of Treatment Upcoming Encounters Date Type Department Care Team (Late Contact Info) Description 08/22/2024 9:00 AM CDT Office Visit [facility], [address] [place], [place] [phone] Marija Banuleos, ANP- [facility]. [address] [place], [place] [id number] documented as of this encounter Visit Diagnoses Not on filedocumented in this encounter Additional Health Concerns Infection Onset Date Last Indicated Resolved Time COVID-19 Rule Out 06/10/2022 06/10/2022 06/10/2022 7:54 AM CDT documented as of this encounter Care Teams Multimedia Author Relationship Specialty Start Date End Date Baldemar Lackey DO [address] [facility] [address] [place] [address] PCP - General INTERNAL MEDICINE 04/22/19 Brett Parrish MD [facility]. [address] [place], [place] [phone] [employer] Laboratory Technician CARDIOVASCULAR DISEASE 05/09/19 documented as of this encounter
--- OUTSIDE RECORDS SUMMARY | 2024-06-07 16:19 | XMS_ITS | Clinical Summary ---
Author Organization [facility] Address [address] [place] [address] Care Team Providers Care Fork Lift Mechanic Name Role Phone Baldemar Lackey DO Primary Care Provider [phone] Allergies No known active allergies Medications losartan (COZAAR) 50 mg tabletIndication s:hypertension Take 50 mg by mouth nightly 0 Active furosemide (LASIX) 20 mg tabletIndication s:hypertension Take 20 mg by mouth daily before breakfast [address] (NexIUM) 40 mg capsuleIndicatio ns:Treatment of Non-Bleeding Gastric Disorder Take 40 mg by mouth nightly 0 Active atorvastatin (LIPITOR) 40 mg tabletIndication s:hyperlipidemia Take 40 mg by mouth nightly 0 Active escitalopram (LEXAPRO) 10 mg tabletIndication s:Anxiety with Depression Take 10 mg by mouth nightly 0 Active tamsulosin (FLOMAX) 0.4 mg extended release capsuleIndicatio ns:benign prostatic hyperplasia with lower urinary tract sx Take 0.4 mg by mouth nightly 0 Active Vascepa 1 gram capsuleIndicatio ns:hypertriglyce ridemia Take 2 g by mouth 2 (two) times a day 0 Active calcium carbonate (CALCIUM 600 ORAL) Take 1 tablet by mouth nightly Active multivitamin capsuleIndicatio ns:Vitamin Deficiency Prevention Take 1 capsule by mouth nightly Active isosorbide mononitrate ER (IMDUR) 30 mg 24 hr tablet 1 Active metoprolol succinate (KAPSPARGO) 25 mg capsule,sprinkle ,ER 24hr extended release capsule 1 Active nitroglycerin (NITROSTAT) 0.4 mg SL tablet 1 Active Active Problems Problem Noted Date Diagnosed Date Elevated PSA 03/02/2020 Overview (03/02/2020): Added automatically from request for surgery [id number] Cervical radiculopathy 07/23/2015 Cephalalgia 06/01/2015 Cervicalgia 06/01/2015 Pain of upper extremity 06/01/2015 Arthralgia of shoulder 03/24/2013 Surgical History Surgery Date Site/Laterality Comments REPLACEMENT TOTAL KNEE 2008, 2009 Bilateral BACK SURGERY 03/23/1984 - 03/22/1985 NECK SURGERY approx 1989 CARPAL TUNNEL RELEASE 02/2019, 01/2019 Bilateral COLONOSCOPY SHOULDER ARTHROSCOPY Left Medical History Medical History Date Comments Hypertension Urinary incontinence Depression PONV (postoperative nausea and vomiting) treated wtih scoplamine patch with sucess Family History Medical History Relation Name Comments Heart disease Father Hypertension Father Arthritis Mother Heart disease Mother Hypertension Mother Relation Name Status Comments Father Mother Social History Tobacco Use Types Packs/Day Years Used Date Smoking Tobacco: Never Smokeless Tobacco: Never Alcohol Use Standard Drinks/Week Comments Yes 3 (1 standard drink = 0.6 oz pur e alcohol) Sex and Gender Information Value Date Recorded Sex Assigned at Not on file Legal Sex Male 5:59 AM ACTIVITY AIDE Gender Identity Male 01/22/2021 9:57 AM CDT Sexual Orientation Not on file Obstetrics History Last Filed Vital Signs Vital Sign Reading Time Taken Comments Blood Pressure 144/76 03/12/2021 9:14 AM ACTIVITY AIDE Pulse 56 03/12/2021 9:14 AM ACTIVITY AIDE Temperature 36.6 C (97.9 F) 03/28/2020 3:15 PM ACTIVITY AIDE Respiratory Rate 16 03/12/2021 9:14 AM ACTIVITY AIDE Oxygen Saturation 99% 03/12/2021 9:14 AM ACTIVITY AIDE Inhaled Oxygen Concentration - - Weight 117.9 kg (260 lb) 01/28/2021 8:18 AM ACTIVITY AIDE Height 182.9 cm (6') 01/28/2021 8:18 AM ACTIVITY AIDE Body Mass Index 35.26 01/28/2021 8:18 AM ACTIVITY AIDE Plan of Treatment Not on file Medical Devices Implanted Type Area Nurse Paralegal Device Identifier Shelf Expiration Date Model / Serial / Lot Joint Bilateral: Knee Description:2008,2009 Insurance [employer] [facility] MEDICARE [facility] [id number] MEDICARE [facility] Address: [address] [address] [place] [address] [employer] [facility] [id number] Care Teams Fork Lift Mechanic Relationship Specialty Start Date End Date Baldemar Lackey DO PCP - General Internal Medicine 12/09/19
--- OUTSIDE RECORDS SUMMARY | 2024-06-07 16:19 | XMS_ITS | Referral Summary ---
Author Organization [facility] Address [address] [place] [address] Care Team Providers Care Pipe Line Walker Name Role Phone Baldemar Lackey DO Primary Care Provider [phone] Allergies No known active allergies Medications losartan [...] (03/02/2020): Added automatically from request for surgery [id number] Cervical radiculopathy 07/23/2015 Cephalalgia 06/01/2015 Cervicalgia 06/01/2015 Pain of upper extremity 06/01/2015 Arthralgia of shoulder 03/24/2013 Social History Tobacco Use Types Packs/Day Years Used Date Smoking Tobacco: Never Smokeless Tobacco: Never Alcohol Use Standard Drinks/Week Comments Yes 3 (1 standard drink = 0.6 oz pur e alcohol) Sex and Gender Information Value Date Recorded Sex Assigned at Not on file Legal Sex Male 5:59 AM LIVESTOCK FARMER Gender Identity Male 01/22/2021 9:57 AM CDT Sexual Orientation Not on file Last Filed Vital Signs Vital Sign Reading Time Taken Comments Blood Pressure 144/76 03/12/2021 9:14 AM LIVESTOCK FARMER Pulse 56 03/12/2021 9:14 AM LIVESTOCK FARMER Temperature 36.6 C (97.9 F) 03/28/2020 3:15 PM LIVESTOCK FARMER Respiratory Rate 16 03/12/2021 9:14 AM LIVESTOCK FARMER Oxygen Saturation 99% 03/12/2021 9:14 AM LIVESTOCK FARMER Inhaled Oxygen Concentration - - Weight 117.9 kg (260 lb) 01/28/2021 8:18 AM LIVESTOCK FARMER Height 182.9 cm (6') 01/28/2021 8:18 AM LIVESTOCK FARMER Body Mass Index 35.26 01/28/2021 8:18 AM LIVESTOCK FARMER Plan of Treatment Not on file Medical Devices Implanted Type Area Loss Prevention Officer Device Identifier Shelf Expiration Date Model / Serial / Lot Joint Bilateral: Knee Description:2008,2009 Insurance [employer] [facility] MEDICARE [facility] [id number] MEDICARE [facility] [id number] Care Teams Pipe Line Walker Relationship Specialty Start Date End Date Baldemar Lackey DO PCP - General Internal Medicine 12/09/19
--- OUTSIDE RECORDS SUMMARY | 2024-06-07 16:19 | XMS_ITS | Encounter Summary ---
Author Organization [facility] Address [address] [place] [address] Care Team Providers Care Lidar Scientist Name Role Phone Baldemar Lackey DO Primary Care Provider [phone] Brett Parrish MD Unavailable Encounter Details Date Type Department Care Team ([facility] Contact Info) Description 06/14/2019 Abstract [facility] at [facility], [address] [address] Genet Miller MA Social History Tobacco Use Types Packs/Day Years Used Date Smoking Tobacco: Never Smokeless Tobacco: Never Alcohol Use Standard Drinks/Week Comments Yes 0 (1 standard drink = 0.6 oz pur e alcohol) AUDIT-C Answer Date Recorded Frequency of Alcohol Consumption 2-3 times a wee k 05/23/2019 Average Number of Drinks Not on file Frequency of Binge Drinking Not on file 04/2019 Sex and Gender Information Value Date Recorded Sex Assigned at Male 07/23/2023 8:58 AM CDT Legal Sex Male 11:27 PM LIABILITY CLAIMS EXAMINER Gender Identity Male 07/23/2023 8:58 AM CDT Sexual Orientation Straight 07/23/2023 8: 58 AM CDT COVID-19 Exposure Response Date Recorded In the last month, have you been in contact with someone who was confirmed or suspected to have Coronavirus / COVID-19? No / Unsure 06/17/2019 6:10 AM CDT documented as of this encounter Plan of Treatment Upcoming Encounters Date Type Department Care Team (Late Contact Info) Description 08/22/2024 9:00 AM CDT Office Visit [facility], [address] [place], [place] [id number] Marija Banuelos, ANP-BC Three [facility]. [address] [place] [address] documented as of this encounter Procedures Procedure Name Priority Date/Time Associated Diagnosis Comments COMPREHENSIVE METABOLIC PANEL Routine 01/19/2023 LIPID PANEL Routine 01/19/2023 CBC, MANUAL DIFF Routine 01/19/2023 CBC (OUTSIDE LAB) Routine 11/16/2019 PROSTATE SPECIFIC ANTIGEN,TOTAL Routine 11/16/2019 COMPREHENSIVE METABOLIC PANEL Routine 11/16/2019 LIPID PANEL Routine 11/16/2019 HCT (ABSTRACTED) Routine 06/22/2019 BUN (OUTSIDE LAB) Routine 06/22/2019 CREATININE Routine 06/22/2019 PROTIME (OUTSIDE LAB) Routine 06/13/2019 CBC (OUTSIDE LAB) Routine 06/13/2019 BASIC METABOLIC PANEL Routine 06/13/2019 LIPID PANEL Routine 06/13/2019 documented in this encounter Results * (ABNORMAL) COMPREHENSIVE METABOLIC PANEL (01/19/2023) SODIUM S/P/B 140 GLUCOSE 99 mg/dL AST 17 BUN 26 CREATININE S/P/B 1.43(A) 0.7 - 1.3 CALCIUM S/P/B 9.2 POTASSIUM S/P/B 4.2 CHLORIDE S/P/B 105 ALT 24 us Default History Genericprovider LABORATORY Final Result * LIPID PANEL (01/19/2023) Pathologist [facility] CHOLESTEROL 141 TRIGLYCERIDES 269 HDL 33 LDL (CALCULATED) 73 NON HDL CHOLESTEROL 108 Default History Genericprovider LABORATORY Final Result * CBC, MANUAL DIFF (01/19/2023) [facility] WBC 5.8 HGB 13.7 HCT 40.8 PLT 200 Default History Genericprovider LABORATORY Final Result * PROSTATE SPECIFIC ANTIGEN,TOTAL (11/16/2019) [facility] PSA 4.3 11/16/2019 us Doc [facility] Abstract LABORATORY Final Result * CBC (OUTSIDE LAB) (11/16/2019) [facility] WBC 6.2 HGB 15.6 HCT 45.9 PLT 230 11/16/2019 us Doc [facility] Abstract LAB-OUTSIDE/ABSTRACTED Final Result * COMPREHENSIVE METABOLIC PANEL (11/16/2019) [facility] SODIUM S/P/B 141 POTASSIUM S/P/B 4.6 CO2 30 CHLORIDE S/P/B 103 GLUCOSE 97 mg/dL CALCIUM S/P/B 9.8 BUN 15 CREATININE S/P/B 1.12 0.7 - 1.3 EGFR AFR. AMER. 77 <=90 EGFR NON-AFR. AMER. 67 <=90 ALKALINE PHOSPHATASE S/P/B 93 ALT 28 AST 18 BILIRUBIN TOTAL S/P/B 0.5 ALBUMIN S/P/B 4.7 3.5 - 5.0 TOTAL PROTEIN S/P/B 7.0 GLOBULIN 2.3 11/16/2019 us Doc [facility] Abstract LABORATORY Final Result * LIPID PANEL (11/16/2019) Pathologist [facility] CHOLESTEROL 151 HDL 38 TRIGLYCERIDES 340 NON HDL CHOLESTEROL 113 LDL (CALCULATED) 72 11/16/2019 us Doc [facility] Abstract LABORATORY Final Result * HCT (ABSTRACTED) (06/22/2019) Pathologist [facility] HCT 44.7 38.5 - 50.0 06/22/2019 us Doc [facility] Abstract LAB-OUTSIDE/ABSTRACTED Final Result * CREATININE (06/22/2019) Pathologist [facility] CREATININE S/P/B 1.29 0.7 - 1.3 EGFR NON-AFR. AMER. 57 <=90 EGFR AFR. AMER. 66 > or = 60 06/22/2019 us Doc [facility] Abstract LABORATORY Final Result * BUN (OUTSIDE LAB) (06/22/2019) Pathologist [facility] BUN 18 7 - 25 06/22/2019 us Doc [facility] Abstract LAB-OUTSIDE/ABSTRACTED Final Result * PROTIME (OUTSIDE LAB) (06/13/2019) [facility] PROTIME 10.3 INR 1.0 06/13/2019 us Doc [facility] Abstract LAB-OUTSIDE/ABSTRACTED Final Result * CBC (OUTSIDE LAB) (06/13/2019) Pathologist [facility] WBC 6.6 3.8 - 10.8 HGB 14.4 13.2 - 17.1 HCT 42.1 38.5 - 50.0 PLT 247 140 - 400 06/13/2019 us Doc [facility] Abstract LAB-OUTSIDE/ABSTRACTED Final Result * BASIC METABOLIC PANEL (06/13/2019) SODIUM S/P/B 139 135 - 146 POTASSIUM S/P/B 5.2 3.5 - 5.3 CO2 27 20 - 32 CHLORIDE S/P/B 104 98 - 110 GLUCOSE 109 65 - 99 mg/dL CALCIUM S/P/B 10.0 8.6 - 10.3 BUN 18 7 - 25 CREATININE S/P/B 1.10 0.7 - 1.3 EGFR AFR. AMER. 80 EGFR NON-AFR. AMER. 69 <=90 06/13/2019 us Doc [facility] Abstract LABORATORY Final Result * LIPID PANEL (06/13/2019) CHOLESTEROL 161 <200 HDL 38 > or = 40 TRIGLYCERIDES 334 <150 NON HDL CHOLESTEROL 123 <130 LDL (CALCULATED) 83 <100 06/13/2019 us Doc [facility] Abstract LABORATORY Final Result documented in this encounter Visit Diagnoses Not on filedocumented in this encounter Additional Health Concerns Infection Onset Date Last Indicated Resolved Time COVID-19 Rule Out 06/10/2022 06/10/2022 06/10/2022 7:54 AM CDT documented as of this encounter Care Teams Lidar Scientist Relationship Specialty Start Date End Date Baldemar Lackey DO [address] [place] [address] PCP - General INTERNAL MEDICINE 04/22/19 Brett Parrish MD [address] [place] [address] [place] Sustainability Manager CARDIOVASCULAR DISEASE 05/09/19 documented as of this encounter
--- OUTSIDE RECORDS SUMMARY | 2024-06-07 16:19 | XMS_ITS | Encounter Summary ---
Author Organization [facility] Address [address] [place] [address] Care Team Providers Care Tankage Grinder Name Role Phone Baldemar Lackey DO Primary Care Provider [phone] Brett Parrish MD Unavailable Encounter Details Date Type Department Care Team (Late st Contact Info) Description 05/29/2020 [facility] Message Enc [facility], [address] [place], [place] [id number] Marija Banuelos, ANP-BC Three [facility]. [address] [place] [address] Lab results Social History Tobacco Use Types Packs/Day Years [...] AM CDT Legal Sex Male 11:27 PM DELI SLICER Gender Identity Male 07/23/2023 8:58 AM CDT Sexual Orientation Straight 07/23/2023 8: 58 AM CDT COVID-19 Exposure Response Date Recorded In the last month, have you been in contact with someone who was confirmed or suspected to have Coronavirus / COVID-19? No / Unsure 05/28/2020 11:41 AM DELI SLICER documented as of this encounter Plan of Treatment Upcoming Encounters Date Type Department Care Team (Late st Contact Info) Description 08/22/2024 9:00 AM CDT Office Visit [facility], [address] [place], [place] [id number] Marija Banuelos, ANP-BC [facility]. [address] [place], [place] [id number] documented as of this encounter Visit Diagnoses Not on filedocumented in this encounter Additional Health Concerns Infection Onset Date Last Indicated Resolved Time COVID-19 Rule Out 06/10/2022 06/10/2022 06/10/2022 7:54 AM CDT documented as of this encounter Care Teams Tankage Grinder Relationship Specialty Start Date End Date Baldemar Lackey DO [address] [place] [address] PCP - General INTERNAL MEDICINE 04/22/19 Brett Parrish MD [facility]. [facility] [address] [place], [place] [address] [place] In Service Educator CARDIOVASCULAR DISEASE 05/09/19 documented as of this encounter
--- OUTSIDE RECORDS SUMMARY | 2024-06-07 16:19 | XMS_ITS | Encounter Summary ---
Author Organization [facility] Address [address] [facility] [place] [address] Care Team Providers Care Dispensing Operator Name Role Phone Baldemar Lackey DO Primary Care Provider [phone] Encounter Details Date Type Department Care Team (Late st Contact Info) Description 05/31/2024 Lab Requisition [facility] - DermPath Lab [address] [facility] [place] [phone] Lupe Burciaga PA [address] [place] [address] Neoplasm of uncertain behavior of skin Social History Tobacco Use Types Packs/Day Years Used Date Smoking Tobacco: Never Passive Smoke Exposure: Never Smokeless Tobacco: Never Alcohol Use Standard Drinks/Week Comments Yes 2 (1 standard drink = 0.6 oz pur e alcohol) AUDIT-C Answer Date Recorded Q1: How often do you have a drink containing alc ohol? 2-4 times a month 10/12/2023 Q2: How many drinks containi ng alcohol do you have on a typical day when you are drinking? 1 or 2 10/12/2023 Q3: How often do you have si x or more drinks on one occasion? Never 10/12/2023 Overall Financial Resource Strain (CARDIA) Answe r Date Recorded How hard is it for you to pa y for the very basics like food, housing, medical care, and heating? Not hard at all 10/12/2023 PHQ-2 Answer Date Recorded Patient Health Questionnaire-2 Score 0 02/10/2024 [place] [facility] - Occupational Stress Questionnaire Answer Date Recorded Do you feel stress - tense, restless, nervous, or anxious, or unable to sleep at night because your mind is troubled all the time - these days? Not at all 10/12/2023 Hunger Vital Sign Answer Date Recorded Within the past 12 months, y ou worried that your food would run out before you got the money to buy more. Never true 10/12/19 24 Within the past 12 months, t he food you bought just didn't last and you didn't have money to get more. Never true 10/12/2023 PRAPARE - Transportation Answer Date Re corded In the past 12 months, has l ack of transportation kept you from medical appointments or from getting medications? No 09/21 In the past 12 months, has l ack of transportation kept you from meetings, work, or from getting things needed for daily living? No 10/12/2023 Housing Stability Vital Sign Answer Valente e Recorded In the last 12 months, was t here a time when you were not able to pay the mortgage or rent on time? No 10/12/2023 In the last 12 months, how many places have you lived? 1 10/12/2023 In the last 12 months, was t here a time when you did not have a steady place to sleep or slept in a prison (including now)? No 10/12/2023 Sex and Gender Information Value Date Recorded Sex Assigned at Male 07/24/2022 8:56 AM CDT Gender Identity Male 07/24/2022 8:56 AM CDT Sexual Orientation Straight 07/24/2022 8: 56 AM CDT documented as of this encounter Functional Status Functional Status Response Date of Assess ment Is person deaf or have serious hearing difficult y? No 10/12/2023 Is person blind or have serious difficulty seein g? Yes 10/12/2023 Does person have serious dif ficulty walking/climbing stairs? Yes 10/12/2023 Does person have difficulty dressing/bathing? Ye s 10/12/2023 Does person have difficulty doing errands alone? Yes 10/12/2023 Cognitive Status Response Date of Assessm ent Does person have difficulty concentrating/remembering/making decisions? No 10/12/2023 documented as of this encounter Plan of Treatment Upcoming Encounters Date Type Department Care Team (Late st Contact Info) Description 02/15/2025 10:30 AM GANG BOSS Office Visit [facility] - Orthopedic Surgery [address] [place] [address] Daniel Borden MD [address] [facility] [address] [place] [address] documented as of this encounter Procedures Procedure Name Priority Date/Time Associated Diagnosis Comments DERMATOPATHOLOGY Routine 05/31/2024 3:33 AM CDT Neoplasm of uncertain behavior of skin documented in this encounter Results * DERMATOPATHOLOGY (05/31/2024 3:33 AM CDT) Case Report Dermatopathology Report Case: [id number] Authorizing Provider: Lupe Burciaga PA Collected: 05/31/2024 03:33 AM Ordering Location: [facility] - Received: 06/06/2024 09:07 AM DermPath Lab Pathologist: Kortney Pickering MD Specimens: A) - Skin, right chest B) - Skin, mid chest C) - Skin, left chest 2:03 PM CDT DERMATOPATHOLOGY LABORATORY Final Diagnosis Specimen A. SKIN, right chest: BASAL CELL CARCINOMA, INFILTRATIVE PATTERN (C44.519) Specimen B. SKIN, mid chest: BASAL CELL CARCINOMA, NODULAR TYPE (C44.519) Specimen C. SKIN, left chest: BASAL CELL CARCINOMA, NODULAR TYPE (C44.519) 2:03 PM CDT DERMATOPATHOLOGY LABORATORY Clinical History A-C: BCC 2:03 PM CDT DERMATOPATHOLOGY LABORATORY Gross Description Specimen A: Received is one formalin filled container labeled with the patient's name and designated right chest. The specimen consists of a shave biopsy measuring [id number] mm. Jar 0. Specimen B: Received is one formalin filled container labeled with the patient's name and designated mid chest. The specimen consists of a shave biopsy measuring 9x7x1 mm. Jar 0. Specimen C: Received is one formalin filled container labeled with the patient's name and designated left chest. The specimen consists of a shave biopsy measuring 8x7x1 mm. Jar 0. 5 2:03 PM T DERMATOPATHOLOGY LABORATORY Microscopic Description Specimen A. SKIN, right chest: Within the dermis there are aggregates of basaloid cells with a high nuclear to cytoplasmic ratio and peripheral palisading. Specimen B. SKIN, mid chest: Within the dermis there are aggregates of basaloid cells with a high nuclear to cytoplasmic ratio and peripheral palisading. Specimen C. SKIN, left chest: Within the dermis there are aggregates of basaloid cells with a high nuclear to cytoplasmic ratio and peripheral palisading. 5 2:03 PM T DERMATOPATHOLOGY LABORATORY Disclaimer An external and internal positive and negative controls are appropriate for the histochemical, immunohistochemical and immunofluorescence stain(s) in this case (if any), except where stated explicitly. The performance characteristics of the stain(s) cited in this report were developed and its performance characteristic determined by the Dermatopathology Laboratory at [facility], directed by Dr. Ashly Salazar. These tests need not be, and therefore are not, approved by the [place] Food and Drug Administration. The tests are used for clinical purposes. Billing Codes Specimen Charges Stain Charges 55156 [id number] 1 1 1 5 2:03 PM CDT DERMATOPATHOLOGY LABORATORY Embedded Images 2:03 PM CDT DERMATOPATHOLOGY LABORATORY Pathology/Cytology TISSUE SPECIMEN FROM SKIN / Unknown 05/31/2024 3:33 AM CDT 06/06/2024 9:07 AM CDT Miscellaneous samples (specimen) TISSUE SPECIMEN FROM SKIN / Unknown 05/31/2024 3:33 AM CDT 06/06/2024 9:07 AM CDT Miscellaneous samples (specimen) TISSUE SPECIMEN FROM SKIN / Unknown 05/31/2024 3:33 AM CDT 06/06/2024 9:07 AM CDT [facility] - PATHOLOGY/CYT OLOGY ORDERABLES DERMATOPATHOLOGY LABORATORY [facility] - Department of Dermatology [address] [phone] documented in this encounter Visit Diagnoses Diagnosis Neoplasm of uncertain behavior of skin documented in this encounter Care Teams Dispensing Operator Relationship Specialty Start Date End Date Baldemar Lackey DO PCP - General 06/05/22 documented as of this encounter
--- OUTSIDE RECORDS SUMMARY | 2024-06-07 16:19 | XMS_ITS | Clinical Summary ---
Author Organization [facility] Address [address] [place] [address] Care Team Providers Care Spa Director/Finance Name Role Phone Baldemar Lackey DO Primary Care Provider [phone] Source Comments [facility],non-owned Affiliates and Associated Physician Practices is amultiple site organization consisting of ambulatory clinics and hospital sitesin [place], [place], [place] and [place]. This disclosure is being madepursuant to the Care Everywhere program and may not contain all information available regarding this patient. Last updated 17.[facility] Allergies No known active allergies Medications * Be aware that medications may not be up to date on this document. Alwaysverify current medications with the patient. Medication Sig Dispensed Refills Start Date End Date Status losartan (Cozaar) 50 MG tablet Take 1 (one) tablet by mouth at bedtime Active furosemide (Lasix) 20 MG tablet Take 1 (one) tablet by mouth once daily Active escitalopram (Lexapro) 10 MG tablet Take 1 (one) tablet by mouth at bedtime Active tamsulosin (Flomax) 0.4 MG capsule Take 2 (two) capsules by mouth at bedtime At the same time every day after a meal. Active icosapent ethyl (Vascepa) 1 g capsule Take 4 (four) capsules by mouth 2 times daily with morning and evening meal Active finasteride (Proscar) 5 MG tablet Take 1 (one) tablet by mouth once daily Active metoprolol succinate XL 24hr (Toprol XL) 25 MG tablet Take 1 (one) tablet by mouth at bedtime Active esomeprazole (NexIUM) 20 MG capsule Take 1 (one) capsule by mouth once daily TAKES AT HS 06/20/2022 Active atorvastatin (Lipitor) 40 MG tablet Take 1 (one) tablet by mouth once daily 09/29/2022 Active pregabalin (Lyrica) 50 MG capsule Take 1 (one) capsule by mouth 2 times daily for 30 days 60 capsule 10/16/2023 Active famotidine (Pepcid) 20 MG tablet Take 1 (one) tablet by mouth every 12 hours for 30 days 60 tablet 10/16/2023 Active celecoxib (CeleBREX) 100 MG capsule Take 1 (one) capsule by mouth 2 times daily 60 capsule 10/16/2023 Active aspirin EC (Ecotrin) 81 MG tablet Take 1 (one) tablet by mouth every 12 hours 60 tablet 10/16/2023 Active HYDROcodone-acetam inophen ([place]) 5-325 MG tabletIndications: Failure of total knee replacement, subsequent encounter Take 1 (one) tablet by mouth every 4 hours as needed for Pain 42 tablet 10/16/2023 Active amoxicillin (Amoxil) 500 MG capsule Take 4 (four) capsules by mouth 1 Hour prior to Dental Appointment 4 capsule 11 02/16/2024 Active Active Problems Problem Noted Date Diagnosed Date Failure of total knee replacement, subsequent en counter 10/12/2023 Coronary artery disease invo lving [place] coronary artery of [place] heart without angina pectoris 2022 2022 Overview (2022): Last Assessment & Plan: He is status post PCI to the LAD and right coronary artery. Continue dual antiplatelet therapy. Arthritis due to other bacteria, right knee 06/2108/14/2022 Encounter for therapeutic drug level monitoring 07/03/2022 2022 Enterococcus as the cause of diseases classified elsewhere 07/03/2022 2022 Pyogenic arthritis of knee, due to unspecified organism, unspecified laterality 06/28/2022 Sepsis 06/09/2022 2022 Anxiety disorder 03/23/2022 2022 Athscl heart disease of christine ve coronary artery w/o ang pctrs 03/23/2022 2022 Benign prostatic hyperplasia without lower urinary tract symptoms 03/23/2022 2022 Gastro-esophageal reflux disease without esophag itis 03/23/2022 2022 Hyperlipidemia, unspecified 03/23/202207/22 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 Nonrheumatic aortic valve stenosis 03/23/2022 2022 Overview (2022): Last Assessment & Plan: Even though his velocity is not above [...] cardiac catheterization, CT scan and surgical evaluation. Snoring 02/12/2022 2022 Overview (2022): Last Assessment & Plan: Home sleep study Elevated PSA 03/02/2020 2022 Overview (2022): Added automatically from request for surgery [id number] Dyslipidemia 06/04/2019 2022 Cervical radiculopathy 07/23/2015 3 Cephalalgia 06/01/2015 2022 Cervicalgia 06/01/2015 2022 Pain of upper extremity 06/01/2015 08/15/19 23 Arthralgia of shoulder 03/24/2013 3 Encounters Date Type Department Care Team Description 05/31/2024 Lab Requisition [facility] - DermPath Lab [address] [place] [id number] Lupe Burciaga PA Neoplasm of uncertain behavior of skin from Last 3 Months Immunizations Name Administration Dates Next Due COVID PFIZER BIVALENT 12Y+ 30mcg/0.3ML 2 INFLUENZA VACCINE, HIGH-DOSE , QUADR. (FLUZONE HIGH-DOSE QUADRIVALENT; 65Y+), 0.7 ML (HD-IIV4) 12/02/2021,12/02/2019,11/21/2019 PNEUMOCOCCAL PCV20 CONJ VAC IM 12/02/2021 PNEUMOCOCCAL PPSV23 12/22/2018 TDAP, HISTORIC VACCINE 01/23/2022 Zoster Hzv Vacc Recombinant Inj Im 01/19/2019 Family History Medical History Relation Name Comments Heart Failure Father CAD (Coronary Artery Disease) Mother Hypertension Mother Relation Name Status Comments Father Mother Social History Tobacco Use Types Packs/Day Years Used Date Smoking Tobacco: Never Passive Smoke Exposure: Never Smokeless Tobacco: Never Tobacco Cessation:Counseling Given: Yes Alcohol Use Standard Drinks/Week Comments Yes 2 [...] Recorded Patient Health Questionnaire-2 Score 0 02/10/2024 [facility] Occupat ional Health - Occupational Stress [...] place to sleep or slept in a chcf (including now)? No 10/12/2023 Sex and Gender Information Value Date Recorded Sex Assigned at Male 07/24/2022 8:56 AM CDT Gender Identity Male 07/24/2022 8:56 AM CDT Sexual Orientation Straight 07/24/2022 8: 56 AM CDT Last Filed Vital Signs Vital Sign Reading Time Taken Comments Blood Pressure 139/68 10/18/2023 7:21 AM CDT Pulse 88 10/18/2023 7:21 AM CDT Temperature 36.9 C (98.5 F) 10/18/2023 7:21 AM CDT Respiratory Rate 20 10/18/2023 7:21 AM CDT Oxygen Saturation 97% 10/18/2023 7:21 AM CDT Inhaled Oxygen Concentration - - Weight 119.7 kg (264 lb) 10/12/2023 4:37 PM CDT Height 182.9 cm (6' 0.01 ) 10/12/2023 4:37 PM CD T Body Mass Index 35.8 10/12/2023 4:37 PM CDT Plan of Treatment Upcoming Encounters Date Type Department Care Team (Late st Contact Info) Description 02/15/2025 10:30 AM GRAPHICS COORDINATOR Office Visit [facility] - Orthopedic Surgery [address] [place] [id number] Daniel Borden MD [address] [facility] [address] [place] [address] Health Maintenance Due Date Last Done Comments COLON MONITORING 1950 COLONOSCOPY - COLON CA SCREENING [address] CT COLONOGRAPHY - COLON CA SCREENING 1950 FIT - COLON CA SCREENING 1950 FLEX SIG - COLON CA SCREENING 1950 ZOSTER VACCINE (2 of 2) 03/16/2019 01/19/2019 COVID-19 VACCINE ( season) 2023 12/05/2021, 06/25/2021, 12/20/2020, Additional history exists DEPRESSION SCREENING 03/23/2024 11/10/2023, 07/31/19 23 MEDICARE AWV CALENDAR YEAR 2024 Respiratory Syncytial Virus (RSV) Vaccine Pt: or over 60 yrs (1 - 1-dose 75+ series) 2025 COLOGUARD (AGES 45-75) - COLON CA SCREENING 02/04/2026 02/04/2023, 12/12/2019 Colorectal Cancer Screening 02/04/2026 DTAP/TDAP/TD VACCINES (2 - Td or Tdap) 01/24/2032 01/23/2022 PNEUMOCOCCAL VACCINE 50+ Completed 12/02/2021, 04/2018 HEPATITIS C SCREENING Completed 06/27/2022 INFLUENZA VACCINE Completed 12/05/2023, , 12/02/2019, Additional history exists HEPATITIS B VACCINE Aged Out No longe r eligible based on patient's age to complete this topic HIB VACCINE Aged Out No longer eligi ble based on patient's age to complete this topic HPV VACCINE Aged Out No longer eligi ble based on patient's age to complete this topic MENINGOCOCCAL (Group B) VACCINE SHARED DECISION-MAKING Aged Out No longer eligible based on patient's age to complete this topic MENINGOCOCCAL GROUPS A/C/Y/W VACCINE Aged Out No longer eligible based on patient's age to complete this topic Medical Devices Implanted Type Area Registered Representative Device Identifier Shelf Expiration Date Model / Serial / Lot Triathlon X3 Tibial Bearing Insert - Cs Implanted:Qty: 1 on 06/29/2022 by Laila Ricketts MD at [facility] Right: Knee [employer] 11/19/2026 [id number] / / [id number] Cmnt Bone Rally 40gm Hvisc Sprmnt Grn Implanted:Qty: 2 on 10/12/2023 by Daniel Borden MD at [facility] Right: Knee [employer] 05/21/2027 [id number] / / [id number] Articular Insert Implanted:Qty: 1 on 10/12/2023 by Daniel Borden MD at [facility] Right: Knee 06/27/2031 [id number] / / [id number] Cmnt Bone Rally 40gm Hvisc Sprmnt Grn Implanted:Qty: 1 on 10/12/2023 by Daniel Borden MD at [facility] Right: Knee [employer] 05/21/2027 [id number] / / [id number] Cement Restrictor Implanted:Qty: 2 on 10/16/2023 by Daniel Borden MD at [facility] Right: Knee [employer] 02/20/2033 [id number] / / [id number] Screw Bsplt 20mm 6.5mm Gns2 Kn Tib Por Implanted:Qty: 1 on 10/16/2023 by Daniel Borden MD at [facility] Right: Knee [employer] [id number] 07/29/2031 [id number] / / [id number] Constrained Femoral Component Implanted:Qty: 1 on 10/16/2023 by Daniel Borden MD at [facility] Right: Knee [employer] 02/27/2031 [id number] / / [id number] Offset Renovation Plant Supervisor Implanted:Qty: 1 on 10/16/2023 by Daniel Borden MD at [facility] Right: Knee [employer] 08/22/2030 [id number] / / [id number] Wedge Fem 5mm Legion 5-6 Lng Kn Post Implanted:Qty: 1 on 10/16/2023 by Daniel Borden MD at [facility] Right: Knee [employer] [id number] 10/29/2031 [id number] / / [id number] Stm Xtn 120mm 14mm Legion Str Kn Ti Implanted:Qty: 1 on 10/16/2023 by Daniel Borden MD at [facility] Right: Knee [employer] [id number] 12/26/2032 [id number] / / [id number] Constrained Articular Insert Implanted:Qty: 1 on 10/16/2023 by Daniel Borden MD at [facility] Right: Knee [employer] 05/25/2033 [id number] / / [id number] Cmnt Bone Rally 40gm Hvisc Sprmnt Grn Implanted:Qty: 6 on 10/16/2023 by Daniel Borden MD at [facility] Right: Knee [employer] 05/21/2027 [id number] / / [id number] Short Tibial Cone Implanted:Qty: 1 on 10/16/2023 by Daniel Borden MD at [facility] Right: Knee [employer] [id number] 08/22/2033 [id number] / / [id number] Legion Cemented Stem Implanted:Qty: 1 on 10/16/2023 by Daniel Borden MD at [facility] Right: Knee [employer] 11/12/2031 [id number] / / [id number] Bsplt Tib Legion 5 Kn Rt Rev Implanted:Qty: 1 on 10/16/2023 by Daniel Borden MD at [facility] Right: Knee [employer] [id number] 07/04/2033 [id number] / / [id number] Explanted Type Area Registered Representative Device Identifier Shelf Expiration Date Model / Serial / Lot Screw Bsplt 15mm 6.5mm Gns2 Kn Tib Por Explanted:Qty : 1 on 10/16/2023 by Daniel Borden MD at [facility] Right: Knee [employer] [id number] 01/10/2033 [id number] / / [id number] Femoral Component Implanted:Qty : 1 on 10/12/2023 by Daniel Borden MD at [facility] Explanted:Qty : 1 on 10/16/2023 at [facility] Right: Knee 11/11/2031 [id number] / / [id number] Procedures Procedure Name Priority Date/Time Associated Diagnosis Comments DERMATOPATHOLOGY Routine 05/31/2024 3:33 AM CDT Neoplasm of uncertain behavior of skin from Last 3 Months Results * DERMATOPATHOLOGY (05/31/2024 3:33 AM CDT) Case Report Dermatopathology Report Case: [id number] Authorizing Provider: Lupe Burciaga PA Collected: 05/31/2024 03:33 AM Ordering Location: [facility] - Received: 06/06/2024 09:07 [...] specimen consists of a shave biopsy measuring 33w96q9 mm. Jar 0. Specimen B: Received is [...] 8x7x1 mm. Jar 0. 5 2:03 PM CDT DERMATOPATHOLOGY LABORATORY Microscopic Description Specimen A. SKIN, [...] ratio and peripheral palisading. 5 2:03 PM CDT DERMATOPATHOLOGY LABORATORY Disclaimer An external and internal positive and negative controls are appropriate for the histochemical, immunohistochemical and immunofluorescence stain(s) in this case (if any), except where stated explicitly. The performance characteristics of the stain(s) cited in this report were developed and its performance characteristic determined by the Dermatopathology Laboratory at [facility], directed by Dr. Ashly Salazar. These tests need not be, and therefore are not, approved by the [place] Food and Drug Administration. The tests are used for clinical purposes. 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
--- OUTSIDE RECORDS SUMMARY | 2024-06-07 16:19 | XMS_ITS | Encounter Summary ---
Author Organization [facility] Address [address] [place] [address] Care Team Providers Care Cyber Defense Incident Responder Name Role Phone Baldemar Lackey DO Primary Care Provider [phone] Brett Parrish MD Unavailable Encounter Details Date Type Department Care Team (Late st Contact Info) Description 10/24/2021 Hospital Orders Only [facility] Supervising [place] [address] Brett Parrish MD Three [facility]. 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 No / Unsure 10/25/2021 7:28 AM CDT documented as of this encounter Functional Status documented as of this encounter Mental Status * Question Answer Entry Date Author Status Because of a physical, menta l, or emotional condition, do you have serious difficulty concentrating, remembering, or making decisions? No 10/25/2021 11:10 PM CDT Gretchen Montoya, FATOU gabriel documented in this encounter Plan of Treatment Upcoming Encounters Date Type Department Care Team (Late st Contact Info) Description 08/22/2024 9:00 AM CDT Office Visit [facility], [address] [place], [place] [phone] Marija Banuelos, ANP[facility]. [address] [place], [place] [phone] documented as of this encounter Visit Diagnoses Not on filedocumented in this encounter Additional Health Concerns Infection Onset Date Last Indicated Resolved Time COVID-19 Rule Out 06/10/2022 06/10/2022 06/10/2022 7:54 AM CDT documented as of this encounter Care Teams Cyber Defense Incident Responder Relationship Specialty Start Date End Date Baldemar Lackey DO [address] [place] [address] PCP - General INTERNAL MEDICINE 04/22/19 Brett Parrish MD [facility]. [address] [place], [place] [id number] [place] Veneer Splicer CARDIOVASCULAR DISEASE 05/09/19 documented as of this encounter
== END 2024-06-07 14:30 | disposition home or self-care (01) ==
PROVIDERS: PCP Internal Medicine; Visit Provider Urology
DX: N20.0 Calculus of kidney (principal)
CPT/HCPCS: 74018

== ENCOUNTER 2024-09-27 13:46 | Outpatient (CLI) | payer MEDICARE, SELFPAY ==
--- OUTSIDE RECORDS SUMMARY | 2024-09-27 13:50 | XMS_ITS | Encounter Summary ---
Author Organization [facility] Address [address] [place] [address] Care Team Providers Care Dump Truck Driver Off Highway Name Role Phone Baldemar Lackey DO Primary Care Provider [phone] Brett Parrish MD Unavailable Encounter Details Date Type Department Care Team (Late st Contact Info) Description 05/29/2020 [facility] Message Enc [facility], [address] [place], [place] [phone] Marija Banuelos, ANP-BC Three [facility]. [address] [place] [address] Lab results Social History Tobacco [...] AM CDT Legal Sex Male 11:27 PM LISW Gender Identity Male 07/23/2023 8:58 AM CDT Sexual Orientation Straight 07/23/2023 8: 58 AM CDT COVID-19 Exposure Response Date Recorded In the last month, have you been in contact with someone who was confirmed or suspected to have Coronavirus / COVID-19? No / Unsure 05/28/2020 11:41 AM LISW documented as of this encounter Plan of Treatment Upcoming Encounters Date Type Department Care Team (Late st Contact Info) Description 04/18/2025 9:45 AM LISW Office Visit [facility], [address] [place], [place] [phone] Brett Parrish MD Three [facility]. [address] [place], [place] [phone] documented as of this encounter Visit Diagnoses Not on filedocumented in this encounter Additional Health Concerns Infection Onset Date Last Indicated Resolved Time COVID-19 Rule Out 06/10/2022 06/10/2022 06/10/2022 7:54 AM CDT documented as of this encounter Care Teams Dump Truck Driver Off Highway Relationship Specialty Start Date End Date Baldemar Lackey DO [address] [place] [address] PCP - General INTERNAL MEDICINE 04/22/19 Brett Parrish MD [facility]. [facility] [address] [place], [place] [address] Cherie Java Developer Analyst CARDIOVASCULAR DISEASE 05/09/19 documented as of this encounter
--- OUTSIDE RECORDS SUMMARY | 2024-09-27 13:50 | XMS_ITS | Encounter Summary ---
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 [address] [place] [address] documented as of this encounter Procedures Procedure [...] LABORATORY Final Result * LIPID PANEL (01/19/2023) [facility] CHOLESTEROL 141 TRIGLYCERIDES 269 HDL 33 LDL (CALCULATED) 73 NON HDL CHOLESTEROL 108 Default History Genericprovider LABORATORY Final Result * CBC, MANUAL DIFF (01/19/2023) [facility] WBC 5.8 HGB 13.7 HCT 40.8 PLT 200 Default History Genericprovider LABORATORY Final Result * PROSTATE SPECIFIC ANTIGEN,TOTAL (11/16/2019) [facility] PSA 4.3 11/16/2019 [facility] Abstract LABORATORY Final Result * CBC (OUTSIDE LAB) (11/16/2019) [facility] WBC 6.2 HGB 15.6 HCT 45.9 PLT 230 11/16/2019 [facility] Abstract LAB-OUTSIDE/ABSTRACTED Final Result * COMPREHENSIVE METABOLIC PANEL (11/16/2019) [facility] SODIUM S/P/B 141 POTASSIUM S/P/B 4.6 CO2 [...] LABORATORY Final Result * LIPID PANEL (11/16/2019) [facility] CHOLESTEROL 151 HDL 38 TRIGLYCERIDES 340 NON HDL CHOLESTEROL 113 LDL (CALCULATED) 72 11/16/2019 [facility] Abstract LABORATORY Final Result * HCT (ABSTRACTED) (06/22/2019) [facility] HCT 44.7 38.5 - 50.0 06/22/2019 [facility] Abstract LAB-OUTSIDE/ABSTRACTED Final Result * CREATININE (06/22/2019) [facility] CREATININE S/P/B 1.29 0.7 - 1.3 EGFR NON-AFR. AMER. 57 <=90 EGFR AFR. AMER. 66 > or = 60 06/22/2019 [facility] Abstract LABORATORY Final Result * BUN (OUTSIDE LAB) (06/22/2019) [facility] BUN 18 7 - 25 06/22/2019 us Doc [facility] Abstract LAB-OUTSIDE/ABSTRACTED Final Result * PROTIME (OUTSIDE LAB) (06/13/2019) [facility] PROTIME 10.3 INR 1.0 06/13/2019 us [facility] Abstract LAB-OUTSIDE/ABSTRACTED Final Result * CBC (OUTSIDE LAB) (06/13/2019) [facility] WBC 6.6 3.8 - 10.8 HGB 14.4 [...] documented as of this encounter Care Teams Public Health Advisor Relationship Specialty Start Date End Date Baldemar Lackey DO [address] [place] [address] PCP - General INTERNAL MEDICINE 04/22/19 [facility] MD [facility] [address] [place] [address] Dawn Distribution Engineer CARDIOVASCULAR DISEASE 05/09/19 documented as of this encounter
--- OUTSIDE RECORDS SUMMARY | 2024-09-27 13:50 | XMS_ITS | Clinical Summary ---
Author Organization [facility] [employer] Address [address] [place] [address] Care Team Providers Care Dredge Operator Supervisor Name Role Phone Baldemar Lackey DO Primary Care Provider [phone] Source Comments [facility] [employer],non-owned Affiliates and Associated Physician Practices is amultiple site organization consisting of ambulatory clinics and hospital sitesin [place], [place], [place] and [place]. This disclosure is being madepursuant to the Care Everywhere program and may not contain all information available regarding this patient. Last updated 17.[facility] [employer] Allergies No known active allergies Medications * Be aware that medications may not be up to date on this document. Alwaysverify current medications with the patient. losartan (Cozaar) 50 MG tablet Take 1 (one) tablet by mouth at bedtime Active furosemide (Lasix) 20 MG tablet Take 1 (one) tablet by mouth once daily Active icosapent ethyl (Vascepa) 1 g capsule Take 2 (two) capsules by mouth 2 times daily with morning and evening meal Active finasteride (Proscar) 5 MG tablet Take 1 (one) tablet by mouth once daily Active esomeprazole (NexIUM) 20 MG capsule Take 2 (two) capsules by mouth at bedtime 06/20/2022 Active atorvastatin (Lipitor) 40 MG tablet Take 1 (one) tablet by mouth at bedtime 09/29/2022 Active aspirin EC (Ecotrin) 81 MG tablet Take 1 (one) tablet by mouth every 12 hours 60 tablet 10/16/2023 Active metoprolol succinate XL 24hr (Toprol XL) 25 MG tablet Take 1 (one) tablet by mouth at bedtime 08/03/2023 Active escitalopram (Lexapro) 20 MG tablet Take 1 (one) tablet by mouth at bedtime 06/02/2024 Active calcium carbonate (Caltrate) 600 MG tablet Take 1 (one) tablet by mouth at bedtime Active ascorbic acid (Vitamin C) 500 MG tablet Take 1 (one) tablet by mouth at bedtime Active multivitamin daily tablet Take 1 (one) tablet by mouth at bedtime Active Peppermint Oil 50 MG CAPS Take 50 mg by mouth once daily Active Misc Natural Products (Neuriva) CAPS Take 1 capsule by mouth at bedtime Active Active Problems Problem Noted Date Diagnosed Date Failure of total knee replacement, subsequent en counter 10/12/2023 Coronary artery disease invo lving king salmon coronary artery of king salmon heart without angina pectoris 2022 2022 Overview [...] esophag itis 03/23/2022 2022 Hyperlipidemia, unspecified 03/23/202207/22 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 I discussed options with Yesenia Maldonado regarding surgical aortic valve replacement versus [...] (2022): Added automatically from request for surgery [id number] Dyslipidemia 06/04/2019 2022 Cervical radiculopathy 07/23/2015 3 Cephalalgia 06/01/2015 2022 Cervicalgia 06/01/2015 2022 Pain of upper extremity 06/01/2015 08/15/19 23 Arthralgia of shoulder 03/24/2013 3 Encounters Date Type Department Care Team Description 08/06/2024 4:02 PM CDT - 08/06/2024 6:43 PM CDT Emergency ER at [address] [address] Acute pain of both knees (Primary Dx) Discharge Disposition: Home or Self Care 08/06/2024 Travel from Last 3 Months Immunizations Immunization Administration Dates Next Due 24tidy BIVALENT 12Y+ 30mcg/0.3ML 2 INFLUENZA VACCINE, HIGH-DOSE [...] containing alc ohol? 2-4 times a month 08/06/2024 Q2: How many drinks containi ng alcohol do you have on a typical day when you are drinking? 1 or 2 08/06/2024 Q3: How often do you have si x or more drinks on one occasion? Never 08/06/2024 Overall Financial Resource Strain (CARDIA) Answe r Date Recorded How hard is it for you to pa y for the very basics like food, housing, medical care, and heating? Not hard at all 10/12/2023 PHQ-2 Answer Date Recorded Patient Health Questionnaire-2 Score 0 02/10/2024 [facility] - Occupational Stress Questionnaire Answer Date Recorded [...] place to sleep or slept in a detention (including now)? 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 Gender Identity Male 07/24/2022 8:56 AM CDT Sexual Orientation Straight 07/24/2022 8: 56 AM CDT Last Filed Vital Signs Vital Sign Reading Time Taken Comments Blood Pressure 169/91 08/06/2024 6:31 PM CDT Pulse 96 08/06/2024 3:55 PM CDT Temperature 36.9 C (98.5 F) 08/06/2024 3:55 PM CDT Respiratory Rate 18 08/06/2024 3:55 PM CDT Oxygen Saturation 97% 08/06/2024 6:31 PM CDT Inhaled Oxygen Concentration - - Weight 120.2 kg (265 lb) 08/06/2024 3:55 PM CDT Height 182.9 cm (6') 08/06/2024 3:55 PM CDT Body Mass Index 35.94 08/06/2024 3:55 PM CDT Plan of Treatment Upcoming Encounters Date Type Department Care Team (Late st Contact Info) Description 02/15/2025 10:30 AM DIVORCE ATTORNEY Office Visit [facility] - Orthopedic Surgery [address] [place] [phone] Daniel Borden MD [address] [address] Health Maintenance Due Date Last Done Comments [...] Type Associated Problems Recent Progress Patient-Stated? Author Autogenera nikolas Goal Care Plan Autogenerated Problem No Los Bender RN Medical Devices Implanted Type Area Triage Clinician Device Identifier Shelf Expiration Date Model / Serial / Lot Triathlon X3 Tibial Bearing Insert - Cs Implanted:Qty: 1 on 06/29/2022 by Laila Ricketts MD at [facility] Right: Knee TIME PLUS Q 11/19/2026 [id number] / / [id number] Cmnt Bone Rally 40gm Hvisc Sprmnt Grn Implanted:Qty: 2 on 10/12/2023 by Daniel Borden MD at [facility] Right: Knee [employer] 05/21/2027 [id number] / / [id number] Articular Insert Implanted:Qty: 1 on 10/12/2023 by Daniel Borden MD at [facility] Right: Knee 06/27/2031 [id number] / / [id number] Cmnt Bone Rally 40gm Hvisc Sprmnt Grn Implanted:Qty: 1 on 10/12/2023 by Daniel Borden MD at [facility] Right: Knee [employer] 05/21/2027 [id number] / / [id number] Cement Restrictor Implanted:Qty: 2 on 10/16/2023 by Daniel Borden MD at [facility] Right: Knee [employer] 02/20/2033 [id number] / / [id number] Screw Bsplt 20mm 6.5mm Gns2 Kn Tib Por Implanted:Qty: 1 on 10/16/2023 by Daniel Borden MD at [facility] Right: Knee [employer] [id number] 07/29/2031 [id number] / / [id number] Constrained Femoral Component Implanted:Qty: 1 on 10/16/2023 by Daniel Borden MD at [facility] Right: Knee [employer] 02/27/2031 [id number] / / [id number] Offset Theatre Professor Implanted:Qty: 1 on 10/16/2023 by Daniel Borden MD at [facility] Right: Knee [employer] 08/22/2030 [id number] / / [id number] Wedge Fem 5mm Legion 5-6 Lng Kn Post Implanted:Qty: 1 on 10/16/2023 by Daniel Borden MD at [facility] Right: Knee [employer] [id number] 10/29/2031 [id number] / / [id number] Stm Xtn 120mm 14mm Legion Str Kn Ti Implanted:Qty: 1 on 10/16/2023 by Daniel Borden MD at [facility] Right: Knee [employer] [id number] 12/26/2032 [id number] / / [id number] Constrained Articular Insert Implanted:Qty: 1 on 10/16/2023 by Daniel Borden MD at [facility] Right: Knee [employer] 05/25/2033 [id number] / / [id number] Cmnt Bone Rally 40gm Hvisc Sprmnt Grn Implanted:Qty: 6 on 10/16/2023 by Daniel Borden MD at [facility] Right: Knee [employer] 05/21/2027 [id number] / / [id number] Short Tibial Cone Implanted:Qty: 1 on 10/16/2023 by Daniel Borden MD at [facility] Right: Knee [employer] [id number] 08/22/2033 [id number] / / [id number] Legion Cemented Stem Implanted:Qty: 1 on 10/16/2023 by Daniel Borden MD at [facility] Right: Knee [employer] 11/12/2031 [id number] / / [id number] Bsplt Tib Legion 5 Kn Rt Rev Implanted:Qty: 1 on 10/16/2023 by Daniel Borden MD at [facility] Right: Knee [employer] [id number] 07/04/2033 [id number] / / [id number] Explanted Type Area Triage Clinician Device Identifier Shelf Expiration Date Model / Serial / Lot Screw Bsplt 15mm 6.5mm Gns2 Kn Tib Por Explanted:Qty : 1 on 10/16/2023 by Daniel Borden MD at [facility] Right: Knee [employer] [id number] 01/10/2033 [id number] / / [id number] Femoral Component Implanted:Qty : 1 on 10/12/2023 by Daniel Borden MD at [facility] Explanted:Qty : 1 on 10/16/[address] [facility] Right: Knee 11/11/2031 [id number] / / [id number] Procedures Procedure Name Priority Date/Time Associated Diagnosis Comments XR KNEE BILAT 2VW OR LESS STAT 08/06/2024 4:54 PM CDT Acute pain of both knees from Last 3 Months Results * XR KNEE 1 OR 2 VW BILAT 68199 X 2 (08/06/2024 4:54 PM CDT) Anatomical Region Laterality Modality Lower Extremity Computed Radiogr aphy 08/07/2024 9:29 AM CDT Narrative 08/07/2024 9:31 AM CDT PROCEDURE: XR KNEE BILAT 2VW OR LESS DATE/TIME OF EXAM: 08/06/2024 4:55 PM CLINICAL INFORMATION: None relevant/not provided if blank. Indication: M25.561: Acute pain of both knees M25.562: Acute pain of both knees Additional History: COMPARISON: None. FINDINGS: Bilateral knee replacements. No acute fracture, malalignment or hardware complication evident. Prepatellar soft tissue swelling on the left. No joint effusion seen. > Interpreting Provider: Josh Jordan MD on 08/07/2024 9:31 AM Procedure Note Josh Jordan MD - 08/07/2024 PROCEDURE: XR KNEE BILAT 2VW OR LESS DATE/TIME OF EXAM: 08/06/2024 4:55 PM CLINICAL INFORMATION: None relevant/not provided if blank. Indication: M25.561: Acute pain of both knees M25.562: Acute pain of both knees Additional History: COMPARISON: None. FINDINGS: Bilateral knee replacements. No acute fracture, malalignment or hardware complication evident. Prepatellar soft tissue swelling on the left. No joint effusion seen. > Interpreting Provider: Josh Jordan MD on 08/07/2024 9:31 AM Suze Palafox SHREDDER TENDER-OCEAN FREIGHT AGENT DIAGNOSTIC IMAGING ORDE ABILIO Final Result from Last 3 Months Additional Health Concerns Active Problems Noted Date Diagnosed Date Autogenerated Problem 08/07/2024 Insurance MEDICARE AET MEDICARE ADV AET MEDICARE ADV MEDICARE Advance Directives Documents on File Type Date Recorded Patient Can Intake Worker Expl anation Adv Directive/Living Will/POA 10/12/2023 * Full Code (Latest Code Status on File) Date Activated Date Inactivated Comments 10/12/2023 2:46 PM 10/18/2023 11:01 AM * Full Code Date Activated Date Inactivated Comments 06/28/2022 3:14 PM 07/03/2022 4:41 PM Care Teams Dredge Operator Supervisor Relationship Specialty Start Date End Date Baldemar Lackey DO PCP - General 06/05/22
--- OUTSIDE RECORDS SUMMARY | 2024-09-27 13:50 | XMS_ITS | Encounter Summary ---
Author Organization [facility] Address [address] [place] [address] Care Team Providers Care Demand Planning Analyst Name Role Phone Baldemar Lackey DO Primary Care Provider Encounter Details Date Type Department Care Team (Late st Contact Info) Description 05/31/2024 Lab Requisition [facility] - DermPath Lab [address] [place] [phone] Lupe Bucriaga, OCTAVIO [address] [place] [address] Neoplasm of uncertain behavior of skin Social [...] Recorded Patient Health Questionnaire-2 Score 0 02/10/2024 [place] [facility] - Occupational Stress [...] place to sleep or slept in a alf (including now)? 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 Answer Date of Assessment Author No 10/12/2023 4:27 PM CDT Rafat Pimentel RN * Is person blind or have serious difficulty seeing? Answer Date of Assessment Author Yes 10/12/2023 4:27 PM CDT Rafat Pimentel RN * Does person have serious difficulty walking/climbing stairs? Answer Date of Assessment Author Yes 10/12/2023 4:27 PM CDT Rafat Pimentel RN * Does person have difficulty dressing/bathing? Answer Date of Assessment Author Yes 10/12/2023 4:27 PM CDT Rafat Pimentel RN * Does person have difficulty doing errands alone? Answer Date of Assessment Author Yes 10/12/2023 4:27 PM AHSANT Rafat Pimentel RN documented as of this encounter Mental Status * Does person have difficulty concentrating/remembering/making decisions? Answer Entry Date Author No 10/12/2023 4:27 PM CDT Rafat Pimentel RN documented in this encounter Plan of Treatment Upcoming Encounters Date Type Department Care Team (Late st Contact Info) Description 02/15/2025 10:30 AM TELEPHONE STERILIZER Office Visit [facility] - Orthopedic Surgery [address] [place] [address] Daniel Borden MD [address] [phone] documented as of this encounter Procedures Procedure Name Priority Date/Time Associated Diagnosis Comments DERMATOPATHOLOGY Routine 05/31/2024 3:33 AM CDT Neoplasm of uncertain behavior of skin documented in this encounter Results * DERMATOPATHOLOGY (05/31/2024 3:33 AM CDT) Case Report Dermatopathology Report Case: [id number] Authorizing Provider: Lupe Burciaga PA Collected: 05/31/2024 03:33 AM Ordering Location: [facility] - Received: 06/06/2024 09:07 AM DermPath Lab [...] TYPE (C44.519) 2:03 PM CDT DERMATOPATHOLOGY LABORATORY at 1403 CDT Clinical History A-C: BCC 5 2:03 PM CDT DERMATOPATHOLOGY LABORATORY Gross Description Specimen A: Received is one formalin filled container labeled with the patient's name and designated right chest. The specimen consists of a shave biopsy measuring 10i31a0 mm. Jar 0. Specimen B: Received is one formalin filled container labeled with the patient's name and designated mid chest. The specimen consists of a shave biopsy measuring 9x7x1 mm. Jar 0. Specimen C: Received is one formalin filled container labeled with the patient's name and designated left chest. The specimen consists of a shave biopsy measuring 8x7x1 mm. Jar 0. 2:03 PM CDT DERMATOPATHOLOGY LABORATORY Microscopic Description [...] nuclear to cytoplasmic ratio and peripheral palisading. 2:03 PM CDT DERMATOPATHOLOGY LABORATORY Disclaimer An external and internal positive and negative controls are appropriate for the histochemical, immunohistochemical and immunofluorescence stain(s) in this case (if any), except where stated explicitly. The performance characteristics of the stain(s) cited in this report were developed and its performance characteristic determined by the Dermatopathology Laboratory at [facility], directed by Dr. Ashly Salazar. These tests need not be, and therefore are not, approved by the [place] Food and Drug Administration. The tests are used for clinical purposes. Billing Codes Specimen Charges Stain Charges 44725 31864 54022 1 1 1 5 2:03 PM CDT [...] 9:07 AM CDT [facility] - PATHOLOGY/CYTOLOGY OR DERABLES Final Result DERMATOPATHOLOGY LABORATORY [facility] - Department of Dermatology [facility] Medicine [address] [place] [address], [address] [phone] documented in this encounter Visit Diagnoses Diagnosis Neoplasm of uncertain behavior of skin documented in this encounter Care Teams Demand Planning Analyst Relationship Specialty Start Date End Date Baldemar Lackey DO PCP - General 06/05/22 documented as of this encounter
--- OUTSIDE RECORDS SUMMARY | 2024-09-27 13:50 | XMS_ITS | Encounter Summary ---
Author Organization [facility] Address [address] [place] [address] Care Team Providers Care Vamp Strap Ironer Name Role Phone Pushpa Lackey DO Primary Care Provider [phone] Derick Gordon MD Unavailable Reason for Visit * Reason Comments Coronary Artery Disease Aortic Valve Disorder 6 month follow up Encounter Details Date Type Department Care Team (Late st Contact Info) Description 09/26/2024 9:00 AM CDT Office Visit [facility], [address] [place], [place] [id number] Marija Banuelos, ANP-BC [facility]. [address] [place], [place] [address] Coronary Artery Disease; Aortic Valve Disorder (6 month follow up) Social History Tobacco Use Types Packs/Day Years Used Date Smoking Tobacco: Never Smokeless Tobacco: Never Alcohol Use Standard Drinks/Week Comments Yes 8.3 [...] often do you attend chur ch or hinduism services? Never 06/27/2022 Do you belong to any clubs o r organizations such as spiritism groups, unions, fraternal or athletic groups, or [...] and heating? Not hard at all 06/27/2022 [facility] - Occupational Stress [...] place to sleep or slept in a usp (including now)? 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 Gender Identity Male 07/23/2023 8:58 AM CDT Sexual Orientation Straight 07/23/2023 8: 58 AM CDT documented as of this encounter Last Filed Vital Signs Vital Sign Reading Time Taken Comments Blood Pressure 126/80 09/26/2024 8:59 AM CDT Pulse 52 09/26/2024 8:59 AM CDT Temperature - - Respiratory Rate - - Oxygen Saturation 96% 09/26/2024 8:59 AM CDT Inhaled Oxygen Concentration - - Weight 129.3 kg (285 lb) 09/26/2024 8:59 AM CDT Height 180.3 cm (5' 11) 09/26/2024 8:59 AM CDT Body Mass Index 39.75 09/26/2024 8:59 AM CDT documented in this encounter Functional Status * Are you deaf or do you have serious difficulty hearing Answer Date of Assessment Author Status No 06/27/2022 7:22 PM CDT Rosa Maria Henry RN Active * Are you blind or do you have serious difficulty seeing, even when wearing glasses? Answer Date of Assessment Author Status No 06/27/2022 7:22 PM AHSANT Rosa Maria Henry RN Active * Do you have serious difficulty walking or climbing stairs? Answer Date of Assessment Author Status No 06/27/2022 7:22 PM AHSANT Rosa Maria Henry RN Active * Do you have difficulty dressing or bathing? Answer Date of Assessment Author Status No 06/27/2022 7:22 PM AHSANT Rosa Maria Henry RN Active * Because of a physical, mental, or emotional condition, do you have difficulty doing errands alone such as visiting a doctor's office or shopping? Answer Date of Assessment Author Status No 06/27/2022 7:22 PM AHSANT Rosa Maria Henry RN Active documented as of this encounter Mental Status * Because of a physical, mental, or emotional condition, do you have serious difficulty concentrating, remembering, or making decisions? Answer Entry Date Author Status No 06/27/2022 7:22 PM AHSANT Rosa Maria Henry RN Active documented in this encounter Progress Notes * Eliz Mccormack CMA - 09/26/2024 9:00 AM CDTAddended by: ELIZ MCCORMACK on: 09/26/2024 09:18 AM Modules accepted: Orders * Marija Banuelos ANP-BC - 09/26/2024 9:00 AM CDT Chief Complaint Patient presents with ??? Coronary Artery Disease ??? Aortic Valve Disorder 6 month follow up HISTORY OF PRESENT ILLNESS Yesenia Maldonado is a 74-year-old male who presents today for cardiac evaluation. Is feeling well. They are taking frequent camping trips over the summer. No reported symptoms of dizziness, angina, shortness of breath, palpitations, edema, claudication. No home blood pressure readings to discuss today. No reported side effects from statin therapy. He states he walking. ASSESSMENT/PLAN Nonrheumatic aortic valve stenosis S/p TAVR 02/05/2022: Gage Linda S3 Ultra #26 mm Echo in May 2022 shows normal function of the valve. Stable and asymptomatic Coronary artery disease Elective PCI of RCA and LAD on 10/25/21 Medical therapy with aspirin, beta-eagle. No reported symptoms of angina. Essential hypertension BP is stable on the current regimen. Medical therapy with losartan, metoprolol Dyslipidemia High intensity Atorvastatin 40mg plus Vascepa 01/25/2024 CHOLESTEROL 133 (E) HDL 36 ! (E) TRIGLYCERIDES 198 ! (E) LDL (CALCULATED) 70 (E) HGB A1C 6.4 ! (E) (E) External lab result FOLLOW UP Return to clinic in 6 months DATA REVIEWED Treadmill nuclear stress test 07/30/2023: ?? Clinically negative and electrocardiographically negative stress test for ischemia. ?? Normal baseline blood pressure. ?? Blood pressure response was normal. Perfusion imaging: Very small defect in the lateral apical region greater on stress than rest images. Small area of infarct with minute area of mild ischemia is possible. Echocardiogram 04/02/2023: The left ventricular size is mildly enlarged. The left ventricular systolic function is normal. Estimated left ventricular ejection fraction is 65-70%. Aortic valve prosthesis visualized. No evidence of reggie-prosthetic aortic valve regurgitation. No evidence of central prosthetic aortic valve regurgitation. A TAVR valve is in the aortic position with post-deployment peak velocity of 2.99m/sec, mean gradient of 21mmHg and a calculated OVIDIO of 1.9cm2. Echocardiogram 06/12/2022: The left ventricular size is normal. Estimated left ventricular ejection fraction is 55-60%. Wall motion appears normal in all segments. The left atrial size is normal. Estimated right atrial pressure of 8 mmHg. No evidence of reggie-prosthetic aortic valve regurgitation. No evidence of central prosthetic aortic valve regurgitation. Trivial degree of prosthetic aortic valve stenosis. A TAVR valve is in the aortic position with post-deployment peak velocity of 2.84m/sec, mean gradient of 18mmHg and a calculated OVIDIO of 1.59cm2. Mild mitral regurgitation. Mild pulmonic regurgitation. Mild tricuspid regurgitation. Right ventricular systolic pressure is 40-50 mmHg suggestive of mild pulmonary hypertension. Cardiac catheterization 10/25/2021: 1. LAD: Proximal vessel lesion: The diagnostic study demonstrated a 15 mm (L), 80%de shahida stenosis.Stent placement was performed over a wire passed through the tribal vessel, resulting in an excellent angiographic appearance (see 2nd lesion). Following intervention, there is a residual 0% stenosiswith PRIMO grade 3 flow (brisk flow). 2. Right coronary: Ostial lesion: The diagnostic study demonstrated a 5 mm (L), 90% stenosis. Stentplacement was performed over a wire passed through the tribal vessel, resulting in an excellent angiographic appearance (see 1st lesion). Following intervention, there is a residual 0% stenosis with PRIMO grade 3 flow (brisk flow). 3. Moderate Aortic stenosis. IMPRESSIONS: Successful PTCI of ostial right coronary artery lesion with resolute stent. SuccessfulPTCI of proximal left anterior descending coronary artery lesion with resolute stent. RECOMMENDATIONS: Patient will be referred to valve clinic if he continues to have symptoms. CHOLESTEROL Date Value Ref Range Status 01/25/2024 133 0 - 200 Final TRIGLYCERIDES Date Value Ref Range Status 01/25/2024 198 (A) 0 - 150 Final HDL Date Value Ref Range Status 01/25/2024 36 (A) 40 - 60 Final LDL (CALCULATED) Date Value Ref Range Status 01/25/2024 70 0 - 100 Final SODIUM S/P/B Date Value Ref Range Status 01/25/2024 140 135 - 146 Final POTASSIUM S/P/B Date Value Ref Range Status 01/25/2024 5.0 3.5 - 5.3 Final CHLORIDE S/P/B Date Value Ref Range Status 01/25/2024 104 98 - 110 Final CO2 Date Value Ref Range Status 01/25/2024 29 20 - 32 Final BUN Date Value Ref Range Status 01/25/2024 20 7 - 25 Final CREATININE S/P/B Date Value Ref Range Status 01/25/2024 1.17 0.70 - 1.28 Final CALCIUM S/P/B Date Value Ref Range Status 01/25/2024 9.8 8.6 - 10.3 Final GLUCOSE Date Value Ref Range Status 01/25/2024 109 (A) 65 - 99 mg/dL Final ANION GAP Date Value Ref Range Status 06/28/2022 6.2 5 - 15 MMOL/L Final TOTAL PROTEIN S/P/B Date Value Ref Range Status 01/25/2024 6.6 6.1 - 8.1 Final ALBUMIN S/P/B Date Value Ref Range Status 01/25/2024 4.4 3.6 - 5.1 Final ALT Date Value Ref Range Status 01/25/2024 24 9 - 46 Final WBC Date Value Ref Range Status 01/25/2024 5.7 3.8 - 10.8 Final HGB Date Value Ref Range Status 01/25/2024 13.6 13.2 - 17.1 Final PLT Date Value Ref Range Status 01/25/2024 221 140 - 400 Final HGB A1C Date Value Ref Range Status 01/25/2024 6.4 (A) 4.8 - 5.7 % Final TSH Date Value Ref Range Status 05/28/2020 1.500 0.358 - 3.74 uIU/ML Final Comment: HIGH DOSES OF BIOTIN MAY INTERFERE WITH THIS TEST RESULT. CORRELATION TO CLINICAL HISTORY AND PRESENTATION RECOMMENDED. Medications: Current Outpatient Medications: ??? escitalopram (LEXAPRO) 20 MG tablet, Take 1 tablet (20 mg total) by mouth daily., Disp: , Rfl: ??? amoxicillin (AMOXIL) 500 MG capsule, Take 4 capsules (2,000 mg total) by mouth once., Disp: , Rfl: ??? Aspirin 81 MG Cap, Take 81 mg by mouth daily., Disp: , Rfl: ??? atorvastatin (LIPITOR) 40 MG tablet, Take 1 tablet (40 mg total) by mouth nightly at bedtime., Disp: 90 tablet, Rfl: 3 ??? esomeprazole 40 MG capsule, Take 1 capsule (40 mg total) by mouth nightly., Disp: , Rfl: ??? finasteride (PROSCAR) 5 MG tablet, Take 1 tablet (5 mg total) by mouth every morning., Disp: , Rfl: ??? furosemide (LASIX) 20 MG tablet, Take 1 tablet (20 mg total) by mouth daily., Disp: 90 tablet, Rfl: 3 ??? losartan (COZAAR) 50 MG tablet, Take 1 tablet (50 mg total) by mouth nightly., Disp: 90 tablet,Rfl: 3 ??? metoprolol succinate ER (TOPROL-XL) 25 MG 24 hr tablet, Take 1 tablet (25 mg total) by mouth daily., Disp: 90 tablet, Rfl: 3 ??? VASCEPA 1 g capsule, TAKE 2 CAPSULES BY MOUTH TWICE DAILY WITH FOOD, Disp: 360 capsule, Rfl: 0 Review of patient's allergies indicates: No Known Allergies Past Medical History: Diagnosis Date ??? Aortic stenosis ??? Arthritis ??? CAD (coronary artery disease) ??? Dyslipidemia ??? Essential hypertension ??? GERD (gastroesophageal reflux disease) ??? Obesity, unspecified ??? PONV (postoperative nausea and vomiting) Past Surgical History: Procedure Laterality Date ??? ARTHROSCOPY SHOULDER ROTATOR CUFF REPAIR Left ??? CARDIAC CATHETERIZATION 07/06/2020 Medical management ??? CARPAL TUNNEL RELEASE Bilateral ??? CT TAVR ??? ELBOW SURGERY Bilateral cubital tunnel release ??? HC RHC/LHC/[place] [address] 06/17/2019 moderate aortic stenosis, medical management for single vessel disease of LAD ??? LUMBAR SPINAL FUSION CPG ??? REPLACEMENT TOTAL KNEE Bilateral ??? SCREENING COLONOSCOPY ??? TRANSCATH STENT INIT VESSEL,PERCUT 10/25/2021 PCI of RCA and LAD ??? XA TAVR 02/05/2022 Gage Linda S3 Ultra #26 mm Social History Tobacco Use ??? Smoking status: Never ??? Smokeless tobacco: Never Vaping Use ??? Vaping status: Never Used Substance Use Topics ??? Alcohol use: Yes Alcohol/week: 8.3 standard drinks of alcohol Types: 5 Cans of beer per week ??? Drug use: Not Currently Family History Problem Relation Name Age of Onset ??? Valve Disease Mother ??? Heart Attack Father ??? Heart Attack Sister Family Status Relation Name Status ??? Mother Alive, age 98y ??? Father at age 58 ??? Sister Alive, age 75y ??? Brother Alive, age 68y ??? MGM at age 85 ??? MGF at age 67 ??? PGM at age 90 ??? PGF at age 83 No partnership data on file Review of Systems Constitutional: Negative. HENT: Negative. Eyes: Negative. Respiratory: Negative. Cardiovascular: See HPI. Gastrointestinal: Negative. Genitourinary: Negative. Musculoskeletal: Negative. Skin: Negative. Neurological: Negative. Endo/Heme/Allergies: Negative. Psychiatric/Behavioral: Negative. Vitals: 09/26/24 0859 BP: 126/80 Patient Position: Sitting BP Location: Right arm Pulse: (!) 52 Weight: 129.3 kg (285 lb) Height: 1.803 m (5' 11) Body mass index is 39.75 kg/m??. Cardiac Exam Rate/Rhythm: Normal rate and regular rhythm. PMI: Pulses: Intact distal pulses. Heart Sounds: Normal S1 sounds. Normal S2 sounds. Murmurs: Murmur present Harsh systolic murmur is present with a grade of 2/6 at the upper right sternal border. Negative for edema. Physical Exam Constitutional: No distress. Healthy Appearance. Overweight. HENT: Eyes: Conjunctivae normal. Neck: Neck supple. No JVD. Abdomen: Abdomen soft. Bowel sounds normal. Pulmonary: Effort normal. Breath sounds normal. Skin: Dry. Warm. Musculoskeletal: No kyphosis. Neurological: Alert. Oriented x 3. Comments: Referring Provider: No ref. provider found PCP: PUSHPA LACKEY DO documented in this encounter Plan of Treatment Upcoming Encounters Date Type Department Care Team (Late st Contact Info) Description 04/18/2025 9:45 AM MINIATURE TRAIN DRIVER Office Visit Coleen Finley-Maddie muñoz [facility], [facility] [address] [place] [address] Derick Gordon MD [facility]. [facility] [address] [place] [address] Pending Results Name Type Priority Associated Diagnoses Date /Time ELECTROCARDIOGRAM EKG-NonRad Routine Coronary artery disease involving tribal coronary artery of tribal heart without angina pectoris 09/26/2024 8:57 AM CDT documented as of this encounter Goals Goal Patient Goal Type Associated Problems Recent Progress Patient-Stated? Author Health - patient able to perform ADLs independently Lifestyle No Kameron Neff RN Patient will return to prior living situation and remain independent in ADLs upon discharge from hospital Lifestyle No Gretchen Saldaña RN documented as of this encounter Procedures Procedure Name Priority Date/Time Associated Diagnosis Comments ELECTROCARDIOGRAM (NON MIDMARK ACQUIRED) Routine 09/26/2024 8:57 AM CDT Coronary artery disease involving tribal coronary artery of tribal heart without angina pectoris Procedure Note - 09/26/2024 8:57 AM CDTThis note is in progress. Sandra Calix [place] Test Date: 2024-09-26 Pat Name: YESENIA MALDONADO Department: 112 Room: Gender: Male [employer]: : 1950 Requested By: DERICK GORDON Order Number: [id number] Reading MD: DERICK GORDON Measurements Intervals [place] Rate: 51 P: 69 AL: 187 QRS: 30 QRSD: 109 T: 64 QT: 435 QTc: 402 Interpretive Statements SINUS BRADYCARDIA documented in this encounter Visit Diagnoses Diagnosis Coronary artery disease involving tribal coronary artery of tribal heart without angina pectoris- Primary History of transcatheter aortic valve replacement (TAVR) Essential hypertension Unspecified essential hypertension Dyslipidemia Other and unspecified hyperlipidemia documented in this encounter Care Teams Vamp Strap Ironer Relationship Specialty Start Date End Date Pushpa Lackey DO [address] [facility] [address] [place] [address] PCP - General INTERNAL MEDICINE 04/22/19 Derick Gordon MD [facility] [address] [place] [address] [place] Category Manager CARDIOVASCULAR DISEASE 05/09/19 documented as of this encounter
--- OUTSIDE RECORDS SUMMARY | 2024-09-27 13:50 | XMS_ITS | Encounter Summary ---
Author Organization [facility] Address [address] [place] [address] Care Team Providers Care Windows Application Developer Name Role Phone Baldemar Lackey DO Primary Care Provider [phone] Brett Parrish MD Unavailable Encounter Details Date Type Department Care Team (Latest Contact Info) Description 09/26/2024 Travel Social History Tobacco Use Types Packs/Day Years [...] week 06/27/2022 How often do you attend [facility] or yarsanism services? Never 06/27/2022 Do you belong to any clubs o r organizations such as faith groups, unions, fraternal or athletic groups, or [...] and heating? Not hard at all 06/27/2022 [facility] [...] slept in a detention (including now)? No 06/27/2022 Sex and Gender Information Value Date Recorded Sex Assigned at Male 07/23/2023 8:58 AM CDT Legal Sex Male 11:27 PM PIGMENT PUSHER Gender Identity Male 07/23/2023 8:58 AM CDT Sexual Orientation Straight 07/23/2023 8: 58 AM CDT documented as of this encounter Functional Status * Are you deaf or do you have serious difficulty hearing Answer Date of Assessment Author Status No 06/27/2022 7:22 PM AHSANT Rosa Maria Henry RN Active * Are [...] Assessment Author Status No 06/27/2022 7:22 PM Rosa Maria Kapoor RN Active documented as of this encounter Mental Status * Because of a physical, mental, or emotional condition, do you have serious difficulty concentrating, remembering, or making decisions? Answer Entry Date Author Status No 06/27/2022 7:22 PM Rosa Maria Kapoor RN Active documented in this encounter Plan of Treatment Upcoming Encounters Date Type Department Care Team (Late st Contact Info) Description 04/18/2025 9:45 AM PIGMENT PUSHER Office Visit [facility], [address] [place], [place] [phone] Brett Parrish MD [facility]. [address] [place], [place] [id number] documented as of this encounter Goals Goal Patient Goal Type Associated Problems Recent Progress Patient-Stated? Author Health - patient able to perform ADLs independently Lifestyle No Kameron Neff, RN Patient will return to prior living situation and remain independent in ADLs upon discharge from hospital Lifestyle No Gretchen Saldaña RN documented as of this encounter Visit Diagnoses Not on filedocumented in this encounter Care Teams Windows Application Developer Relationship Specialty Start Date End Date Baldemar Lackey DO [address] [place], [place] [id number] PCP - General INTERNAL MEDICINE 04/22/19 Brett Parrish MD [facility]. [facility] [address] [place], [place] [id number] Cherie Bale Opener CARDIOVASCULAR DISEASE 05/09/19 documented as of this encounter
--- OUTSIDE RECORDS SUMMARY | 2024-09-27 13:51 | XMS_ITS | Clinical Summary ---
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 Gender Identity Male 01/22/2021 9:57 AM CDT Sexual Orientation Not on file Obstetrics History Last Filed Vital Signs Vital Sign Reading Time Taken Comments Blood Pressure 144/76 03/12/2021 9:14 AM LACQUER SPRAY BOOTH OPERATOR Pulse 56 03/12/2021 9:14 AM LACQUER SPRAY BOOTH OPERATOR Temperature 36.6 C (97.9 F) 03/28/2020 3:15 PM LACQUER SPRAY BOOTH OPERATOR Respiratory Rate 16 03/12/2021 9:14 AM LACQUER SPRAY BOOTH OPERATOR Oxygen Saturation 99% 03/12/2021 9:14 AM LACQUER SPRAY BOOTH OPERATOR Inhaled Oxygen Concentration - - Weight 117.9 kg (260 lb) 01/28/2021 8:18 AM LACQUER SPRAY BOOTH OPERATOR Height 182.9 cm (6') 01/28/2021 8:18 AM LACQUER SPRAY BOOTH OPERATOR Body Mass Index 35.26 01/28/2021 8:18 AM LACQUER SPRAY BOOTH OPERATOR Plan of Treatment Not on file Medical Devices Implanted Type Area Plumbing Drafter Device Identifier Shelf Expiration Date Model / Serial / Lot Joint Bilateral: Knee Description:2008,2009 Insurance [employer] [facility] MEDICARE [facility] [id number] [facility] Address: [address] [address] [place] [address] [employer] [facility] [address] Care Teams Db2 Dba Relationship Specialty Start Date End Date Baldemar Lackey DO PCP - General Internal Medicine 12/09/19
--- OUTSIDE RECORDS SUMMARY | 2024-09-27 13:51 | XMS_ITS | Encounter Summary ---
Author Organization [facility] Address [address] [place] [address] Care Team Providers Care Basting Cleaner Name Role Phone Baldemar Lackey DO Primary Care Provider [phone] Brett Parrish MD Unavailable Encounter Details Date Type Department Care Team (Late st Contact Info) Description 10/24/2021 Hospital Orders Only [facility] [place] [address] Brett Parrish MD Three [facility]. [address] [place] [address] Social History Tobacco Use Types [...] AM CDT Legal Sex Male 11:27 PM VAN CDL DRIVER Gender Identity Male 07/23/2023 8:58 AM CDT Sexual Orientation Straight 07/23/2023 8: 58 AM CDT COVID-19 Exposure Response Date Recorded In the last 10 days, have yo u been in contact with someone who was confirmed or suspected to have Coronavirus/COVID-19? No / Unsure 10/25/2021 7:28 AM CDT documented as of this encounter Functional Status * Calculated C-SSRS Risk Score (Lifetime/Recent) Answer Date of Assessment Author Status No Risk Indicated 10/25/2021 8:11 AM CDT Nimco Power RN Active * [place] Suicide Severity Rating Scale (Screener/Recent Self-Report) Question Answer Date of Assessment Author Status 1. Wish to be (Past 1 Month) No 10/25/2021 8:11 AM CDT Renata Power RN Ac tive 2. Non-Specific Active Suicidal Thoughts (Past 1 Month) No 10/25/2021 8:11 AM CDT Renata Power RN Ac tive 6. Suicidal Behavior (Lifetime) No 10/25/2021 8:11 AM CDT Renata Power RN Ac tiregine documented as of this encounter Mental Status * Question Answer Entry Date Author Status Because of a physical, menta l, or emotional condition, do you have serious difficulty concentrating, remembering, or making decisions? No 10/25/2021 11:10 PM CDT Gretchen Montoya RN Activ e documented in this encounter Plan of Treatment Upcoming Encounters Date Type Department Care Team (Late st Contact Info) Description 04/18/2025 9:45 AM VAN CDL DRIVER Office Visit [facility], [facility] [address] [place], [place] [id number] Brett Parrish MD Three [facility]. [facility] [address] [place] [address] documented as of this encounter Visit Diagnoses Not on filedocumented in this encounter Additional Health Concerns Infection Onset Date Last Indicated Resolved Time COVID-19 Rule Out 06/10/2022 06/10/2022 06/10/2022 7:54 AM CDT documented as of this encounter Care Teams Basting Cleaner Relationship Specialty Start Date End Date Baldemar Lackey DO [address] [place] [address] PCP - General INTERNAL MEDICINE 04/22/19 Brett Parrish MD Three [facility]. [place] [id number] [place] [address] [place] Jack Rack Puncher CARDIOVASCULAR DISEASE 05/09/19 documented as of this encounter
--- OUTSIDE RECORDS SUMMARY | 2024-09-27 13:51 | XMS_ITS | Encounter Summary ---
Author Organization [facility] Address [address] [place] [address] Care Team Providers Care Organ Tuner Name Role Phone Baldemar Lackey DO Primary Care Provider [phone] Brett Parrish MD Unavailable Encounter Details Date Type Department Care Team (Late Contact Info) Description 07/08/2021 Clickst Message Enc [place] [facility], [address] [place], [place] [phone] Marija Banuelos, ANP-BC Three [facility]. [address] [place], [place] [id number] Lab Results Social History Tobacco Use Types [...] AM CDT Legal Sex Male 11:27 PM RECREATION COUNSELOR Gender Identity Male 07/23/2023 8:58 AM CDT Sexual Orientation Straight 07/23/2023 8: 58 AM CDT documented as of this encounter Plan of Treatment Upcoming Encounters Date Type Department Care Team (Late Contact Info) Description 04/18/2025 9:45 AM RECREATION COUNSELOR Office Visit [facility], [facility] [address] [place], [place] [phone] Brett Parrish MD Three [facility]. [facility] [address] [place], [place] [phone] documented as of this encounter Visit Diagnoses Not on filedocumented in this encounter Additional Health Concerns Infection Onset Date Last Indicated Resolved Time COVID-19 Rule Out 06/10/2022 06/10/2022 06/10/2022 7:54 AM CDT documented as of this encounter Care Teams Organ Tuner Relationship Specialty Start Date End Date Baldemar Lackey DO [address] [facility] [address] [place] [address] PCP - General INTERNAL MEDICINE 04/22/19 Brett Parrish MD Three [facility]. [facility] [address] [place], [place] [id number] [employer] Administrator CARDIOVASCULAR DISEASE 05/09/19 documented as of this encounter
--- OUTSIDE RECORDS SUMMARY | 2024-09-27 13:51 | XMS_ITS | Clinical Summary ---
Author Organization [facility] Address Formerly [facility] [place] [address] Care Team Providers Care Pulpwood Cutter Name Role Phone Baldemar Lackey DO Primary Care Provider [phone] Derick Gordon MD Unavailable Allergies No known active allergies Medications esomeprazole 40 MG capsule Take 1 capsule (40 mg total) by mouth nightly. 04/05/19 20 Active finasteride (PROSCAR) 5 MG tablet Take 1 tablet (5 mg total) by mouth every morning. 03/07/20 22 Active Aspirin 81 MG Cap Take 81 mg by mouth daily. 08/06/19 23 Active amoxicillin (AMOXIL) 500 MG capsule Take 4 capsules (2,000 mg total) by mouth once. 02/02/20 24 Active escitalopram (LEXAPRO) 20 MG tablet Take 1 tablet (20 mg total) by mouth daily. 02/21/20 24 Active atorvastatin (LIPITOR) 40 MG tablet Take 1 tablet (40 mg total) by mouth nightly at bedtime. 90 tablet 3 09/27/19 25 Active furosemide (LASIX) 20 MG tablet Take 1 tablet (20 mg total) by mouth daily. 90 tablet 3 09/27/19 25 Active icosapent ethyl (VASCEPA) 1 G capsule Take 2 capsules (2 g total) by mouth 2 (two) times daily with meals. Take with food. 360 capsule 3 09/27/19 25 Active losartan (COZAAR) 50 MG tablet Take 1 tablet (50 mg total) by mouth nightly. 90 tablet 3 09/27/19 25 Active metoprolol succinate ER (TOPROL-XL) 25 MG 24 hr tablet Take 1 tablet (25 mg total) by mouth daily. 90 tablet 3 09/27/19 25 Active escitalopram 10 MG tablet Take 1 tablet (10 mg total) by mouth nightly. 04/04/19 20 025 Discontinued ISOSORBIDE MONONITRATE ER 60 MG 24 hr tablet TAKE 1 TABLET BY MOUTH NIGHTLY AT BEDTIME 90 tablet 10/01/19 22 022 Discontinued atorvastatin (LIPITOR) 40 MG tablet Take 1 tablet (40 mg total) by mouth nightly at bedtime. 90 tablet 3 08/03/19 24 025 Discontinued(Re order) furosemide (LASIX) 20 MG tablet Take 1 tablet (20 mg total) by mouth daily. 90 tablet 3 08/03/19 24 025 Discontinued(Re order) losartan (COZAAR) 50 MG tablet Take 1 tablet (50 mg total) by mouth nightly. 90 tablet 3 08/03/19 24 025 Discontinued(Re order) metoprolol succinate ER (TOPROL-XL) 25 MG 24 hr tablet Take 1 tablet (25 mg total) by mouth daily. 90 tablet 3 08/03/19 24 025 Discontinued(Re order) VASCEPA 1 g capsule TAKE 2 CAPSULES BY MOUTH TWICE DAILY WITH FOOD 360 capsule 07/28/19 025 Discontinued(Re order) Active Problems Problem Noted Date Diagnosed Date History of transcatheter aortic valve replacemen t (TAVR) 02/15/2024 Snoring 02/12/2022 Assessment & Plan (02/12/2022 11:01 AM STATISTICAL TECHNICIAN): Home sleep study Dyslipidemia 06/04/2019 Essential hypertension Assessment & Plan (04/02/2023 12:38 PM STATISTICAL TECHNICIAN): His blood pressure is well-controlled today. Continue antihypertensive therapy. Assessment & Plan (06/14/2022 8:42 PM CDT): Continue antihypertensive therapy. Coronary artery disease invo lving [place] coronary artery of [place] heart without angina pectoris Assessment & Plan (04/02/2023 12:38 PM STATISTICAL TECHNICIAN): He is status post PCI to the [...] stenosis Assessment & Plan (04/02/2023 12:37 PM STATISTICAL TECHNICIAN): I reviewed his 1 year echocardiogram and it shows a well-functioning bioprosthetic aortic valve. The velocity is increased from 2.5-2.99, but I do not think that this is significant especially given that his symptoms have not changed. 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 Continue antibiotic prophylaxis. Assessment & Plan (12/30/2021 [...] Noted Date Diagnosed Date Resolved Date Sepsis ([facility]) 06/09/2022 Severe aortic valve stenosis 02/05/2022 08/04/2022 Assessment & Plan (06/14/2022 8:41 PM CDT): He is status post transfemoral TAVR. His 1 month echo shows stable valve function. Repeat echo in 1 year. Continue dental prophylaxis with abx. Assessment & Plan (02/12/2022 11:00 AM STATISTICAL TECHNICIAN): s/p Successful transcatheter aortic valve replacement with Gage Linda S3 Ultra #26 mm on 02/05/22 EKG today revealed SR. Groins stable Repeat echo in 1 month Cardiac rehab ordered Antibiotic prophylaxis encouraged prior to any dental cleaning or procedure - issued Nonrheumatic aortic valve stenosis 06/04/2019 06/27/2019 Dyspnea 06/27/2019 Encounters Date Type Department Care Team Description 09/26/2024 9:00 AM CDT Office Visit [place], [address] [address] Marija Banuelos, ANP-BC Coronary Artery Disease; Aortic Valve Disorder (6 month follow up) 09/26/2024 Travel 08/02/2024 Scan HEALTH INFO SRVCS Scanned, Doc Med Group from Last 3 Months Immunizations Immunization Administration Dates Next Due Fluzone High Dose [...] 06/27/2022 How often do you attend chur or presybeterian services? Never 06/27/2022 Do you belong to any clubs o r organizations such as presybeterian groups, unions, fraternal or athletic groups, or [...] and heating? Not hard at all 06/27/2022 [facility] [place] of Occupat ional Health - Occupational Stress [...] place to sleep or slept in a senior living (including now)? No 06/27/2022 Sex and Gender Information Value Date Recorded Sex Assigned at Male 07/23/2023 8:58 AM CDT Legal Sex Male 11:27 PM STATISTICAL TECHNICIAN Gender Identity Male 07/23/2023 8:58 AM CDT Sexual Orientation Straight 07/23/2023 8: 58 AM CDT Last Filed Vital Signs Vital Sign Reading Time Taken Comments Blood Pressure 126/80 09/26/2024 8:59 AM CDT Pulse 52 09/26/2024 8:59 AM CDT Temperature 36.8 C (98.2 F) 06/28/2022 11:51 AM CDT Respiratory Rate 16 06/28/2022 11:51 AM CDT Oxygen Saturation 96% 09/26/2024 8:59 AM CDT Inhaled Oxygen Concentration - - Weight 129.3 kg (285 lb) 09/26/2024 8:59 AM CDT Height 180.3 cm (5' 11) 09/26/2024 8:59 AM CDT Body Mass Index 39.75 09/26/2024 8:59 AM CDT Plan of Treatment Upcoming Encounters Date Type Department Care Team (Late st Contact Info) Description 04/18/2025 9:45 AM STATISTICAL TECHNICIAN Office Visit [place] [facility], [facility] [address] [place], [place] [phone] Derick Gordon MD Three [facility]. [facility] [address] [place] [address] Health Maintenance Due Date Last Done Comments Colorectal Cancer Screening Colonoscopy (10 Years) 1950 RSV Immunization or 60+ Years (1 - Risk 60-74 years 1-dose series) 2010 Annual Medicare Wellness Visit 08/15/2015 Zoster Vaccines (2 of 2) 03/16/2019 01/19/2019 COVID-19 Vaccine ( season) 2023 12/05/2021, 06/25/2021, 12/20/2020, Additional history exists PHQ-2 (Physician [place]) 03/23/2024 DTaP, Tdap and Td Vaccines (2 - Td or Tdap) 01/24/2032 01/23/2022 Pneumococcal Vaccine: 50+ Years Completed 12/02/2021, 12/22/2018 Hepatitis C Completed [...] from hospital Lifestyle No Gretchen Saldaña RN Medical Devices Implanted Type Area Drum Barker Operator Device Identifier Shelf Expiration Date Model / Serial / Lot Stent Ureteral 6fr 28cm Pigtl Crv Taper Tip Bldr Mrk - [id number] Implanted:Qt y: 1 on 06/10/2022 by Lalo Rubio MD at [facility] Stent Left: Ureter Everstring THEA [id number] 01/09/2025 [id number] / / [id number] Valve Implant-01/21 Implanted:Qt y: 1 on 02/05/2022 by Shar Mack MD Valve Implant Aorta [employer] THEA [id number] / [id number] / Procedures Procedure Name Priority Date/Time Associated Diagnosis Comments ELECTROCARDIOGRAM (NON MIDMARK ACQUIRED) Routine 09/26/2024 8:57 AM CDT Coronary artery disease involving [place] coronary artery of [place] heart without angina pectoris Procedure Note - 09/26/2024 8:57 AM CDTThis note is in progress. [facility] Test Date: 2024-09-26 Pat Name: YESENIA MALDONADO Department: 112 Room: Gender: Male Inspection Machine Tender: : 1950 Requested By: DERICK GORDON Order Number: [id number] Reading MD: DERICK GORDON Measurements Intervals [place] Rate: 51 P: 69 [place]: 187 QRS: 30 QRSD: 109 T: 64 QT: 435 QTc: 402 Interpretive Statements SINUS BRADYCARDIA HC EIA QL HEPATITIS ABC B AG STAT 06/27/2022 6:38 PM CDT from Last 3 Months or Most Recently Relevant to Health Maintenance Results * HEPATITIS A,B,& C (06/27/2022 6:38 PM CDT) HEPATITIS B SURFACE AG NON-REACTIVE NON-REACT MILENA 06/27/2022 9:42 PM CDT [facility] HEP B CORE TOTAL AB NON-REACTIVE NON-REACT MILENA 06/27/2022 9:42 PM CDT [facility] HEP B SURFACE AB REACTIVE 06/27/2022 9:42 PM CDT [facility] HAV IGM NON-REACTIVE NON-REACT MILENA 06/27/2022 9:42 PM CDT [facility] HEPATITIS C AB NON-REACTIVE NON-REACT MILENA 06/27/2022 9:42 PM CDT [facility] 06/27/2022 6:38 PM CDT Fam Marrero DO LABORATORY Final Result [facility] [address] [place] [address], [place] [phone] from Last 3 Months or Most Recently [...] 8:43 AM 02/05/2022 1:35 PM Care Teams Pulpwood Cutter Relationship Specialty Start Date End Date Baldemar Lackey DO [address] [facility] [address] [place] [address] PCP - General INTERNAL MEDICINE 04/22/19 Derick Gordon MD [facility] [address] [place] [address] [place] Rn Referral CARDIOVASCULAR DISEASE 05/09/19
--- OUTSIDE RECORDS SUMMARY | 2024-09-27 13:51 | XMS_ITS | Referral Summary ---
Author Organization [facility] Address [address] [place] [address] Care Team Providers Care Heavy Duty Diesel Mechanic Name Role Phone Baldemar Lackey DO Primary Care Provider [phone] Allergies No known active allergies Medications losartan [...] (03/02/2020): Added automatically from request for surgery [id number] Cervical radiculopathy 07/23/2015 Cephalalgia 06/01/2015 Cervicalgia 06/01/2015 [...] on file Legal Sex Male 5:59 AM ASSISTANT ACCOUNT MANAGER Gender Identity Male 01/22/2021 9:57 AM CDT Sexual Orientation Not on file Last Filed Vital Signs Vital Sign Reading Time Taken Comments Blood Pressure 144/76 03/12/2021 9:14 AM ASSISTANT ACCOUNT MANAGER Pulse 56 03/12/2021 9:14 AM ASSISTANT ACCOUNT MANAGER Temperature 36.6 C (97.9 F) 03/28/2020 3:15 PM ASSISTANT ACCOUNT MANAGER Respiratory Rate 16 03/12/2021 9:14 AM ASSISTANT ACCOUNT MANAGER Oxygen Saturation 99% 03/12/2021 9:14 AM ASSISTANT ACCOUNT MANAGER Inhaled Oxygen Concentration - - Weight 117.9 kg (260 lb) 01/28/2021 8:18 AM ASSISTANT ACCOUNT MANAGER Height 182.9 cm (6') 01/28/2021 8:18 AM ASSISTANT ACCOUNT MANAGER Body Mass Index 35.26 01/28/2021 8:18 AM ASSISTANT ACCOUNT MANAGER Plan of Treatment Not on file Medical Devices Implanted Type Area Landfill Gas Plant Field Technician Device Identifier Shelf Expiration Date Model / Serial / Lot Joint Bilateral: Knee Description:2008,2009 Insurance [employer] [facility] MEDICARE [facility] [id number] MEDICARE [facility] [id number] Care Teams Heavy Duty Diesel Mechanic Relationship Specialty Start Date End Date Baldemar Lackey DO PCP - General Internal Medicine 12/09/19
[2024-09-27 16:14] LABS: Hemoglobin A1C 6.0 % (<5.7)
== END 2024-09-27 13:47 | disposition home or self-care (01) ==
LOC: ANHGOSHLAB 13:47
PROVIDERS: PCP Internal Medicine; Visit Provider Nurse Practitioner
DX: R73.03 Prediabetes (principal)
CPT/HCPCS: 36415; 83036

== ENCOUNTER 2025-01-23 10:05 | Outpatient (CLI) | payer MEDICARE, SELFPAY ==
--- NOTE | ~2025-01-23 | XR_ITS ---
XR abdomen/kub 1V 01/23/2025 10:19 Indication: Renal stones Procedure: KUB Comparison: 06/07/2024 Findings: There are multiple left renal stones, largest in the lower pole. No definite right renal stones. Bowel gas pattern nonobstructive. There are pelvic phleboliths. Moderate lumbar spondylosis. No acute osseous abnormality. Impression: 1: Left nephrolithiasis. Reviewed, dictated and finalized at location A. IC WORKS MANAGER Impression: 1: Left nephrolithiasis.
--- OUTSIDE RECORDS SUMMARY | 2025-01-23 11:05 | XMS_ITS | Encounter Summary ---
Author Organization [facility] Address [address] [facility] [place] [address] Care Team Providers Care Lehr Tender Name Role Phone Baldemar Lackey DO Primary Care Provider Encounter Details Date Type Department Care Team (Late st Contact Info) Description 05/31/2024 Lab Requisition [facility] - DermPath Lab [address] [facility], [place] [phone] Lupe Burciaga, OCTAVIO [address] [place] [address] Neoplasm of uncertain behavior of [...] Recorded Patient Health Questionnaire-2 Score 0 02/10/2024 [facility] of Occupat ional Health - Occupational Stress [...] place to sleep or slept in a intermediate (including now)? No 10/12/2023 Sex and Gender Information Value Date Recorded Sex Assigned at Male 07/24/2022 8:56 AM CDT Legal Sex Male 7:12 AM CHIEF INFORMATION SECURITY OFFICER Gender Identity Male 07/24/2022 8:56 AM CDT [...] 10/12/2023 4:27 PM AHSANT Rafat Pimentel RN * Does person have [...] Care Team (Late st Contact Info) Description 03/15/2025 10:00 AM CHIEF INFORMATION SECURITY OFFICER Office Visit [facility] - Orthopedic Surgery [address] [place] [address] Daniel Borden MD [address] [phone] documented as of this encounter Procedures Procedure Name Priority Date/Time Associated Diagnosis Comments DERMATOPATHOLOGY Routine 05/31/2024 3:33 AM CDT Neoplasm of uncertain behavior of skin documented in this encounter Results * DERMATOPATHOLOGY (05/31/2024 3:33 AM CDT) Case Report Dermatopathology Report Case: [id number] Authorizing Provider: Lupe Burciaga PA Collected: 05/31/2024 03:33 AM Ordering Location: [facility] - Received: 06/06/2024 09:07 AM DermPath Lab [...] at 1403 CDT Clinical History A-C: BCC 2:03 PM CDT DERMATOPATHOLOGY LABORATORY Gross Description Specimen A: Received is one formalin filled container labeled with the patient's name and designated right chest. The specimen consists of a shave biopsy measuring [id number] mm. Jar 0. Specimen B: Received is [...] cytoplasmic ratio and peripheral palisading. 2:03 PM T DERMATOPATHOLOGY LABORATORY Disclaimer An external and internal positive and negative controls are appropriate for the histochemical, immunohistochemical and immunofluorescence stain(s) in this case (if any), except where stated explicitly. The performance characteristics of the stain(s) cited in this report were developed and its performance characteristic determined by the Dermatopathology Laboratory at [facility], directed by Dr. Ashly Salazar. These tests need not be, and therefore are not, approved by the [place] Food and Drug Administration. The tests are used for clinical purposes. Billing Codes Specimen Charges Stain Charges 98532 88762 22896 1 1 1 2:03 PM CDT DERMATOPATHOLOGY LABORATORY Embedded Images [...] PATHOLOGY/CYTOLOGY OR DERABLES Final Result DERMATOPATHOLOGY LABORATORY [facility] - Department of Dermatology [facility] Specialized Medicine [address] [place] [address], [address] [phone] documented in this encounter Visit Diagnoses Diagnosis Neoplasm of uncertain behavior of skin documented in this encounter Care Teams Lehr Tender Relationship Specialty Start Date End Date Baldemar Lackey DO PCP - General 06/05/22 documented as of this encounter
--- OUTSIDE RECORDS SUMMARY | 2025-01-23 11:05 | XMS_ITS | Encounter Summary ---
Author Organization [facility] Address [address] [facility] [address] [facility] [address] [place] [address] Care Team Providers Care Consumer Education Specialist Name Role Phone Baldemar Lackey DO Primary Care Provider [phone] Encounter Details Date Type Department Care Team (Late st Contact Info) Description 09/29/2024 Lab Requisition [facility] - DermPath Lab [address] [facility], [place] [address] Rea Pisano MD [address] [place] [address] Social History Tobacco Use Types Packs/Day Years [...] Recorded Patient Health Questionnaire-2 Score 0 02/10/2024 [facility] [place] of Occupat ional Health - Occupational Stress [...] place to sleep or slept in a [place] facility (including now)? No 10/12/2023 Sex and Gender Information Value Date Recorded Sex Assigned at Male 07/24/2022 8:56 AM CDT Legal Sex Male 7:12 AM SUPERVISOR MACHINING Gender Identity Male 07/24/2022 8:56 AM CDT [...] 4:27 PM CDT Rafat Pimentel RN documented as of this encounter Mental Status * Does person have difficulty concentrating/remembering/making decisions? Answer Entry Date Author No 10/12/2023 4:27 PM CDT Rafat Pimentel RN documented in this encounter Plan of Treatment Upcoming Encounters Date Type Department Care Team (Late st Contact Info) Description 03/15/2025 10:00 AM SUPERVISOR MACHINING Office Visit [facility] - Orthopedic Surgery [address] [place] [phone] Daniel Borden MD [address] [phone] documented as of this encounter Procedures Procedure Name Priority Date/Time Associated Diagnosis Comments DERMATOPATHOLOGY Routine 09/28/2024 3:33 AM CDT documented in this encounter Results * DERMATOPATHOLOGY (09/28/2024 3:33 AM CDT) Case Report Dermatopathology Report Case: [id number] Authorizing Provider: Rea Pisano MD Collected: 09/28/2024 03:33 AM Ordering Location: [facility] - Received: 09/29/2024 01:19 PM DermPath Lab Pathologist: Kortney Pickering MD Specimen: Skin, right chest 3:50 PM CDT DERMATOPATHOLOGY LABORATORY Final Diagnosis Specimen A. SKIN, right chest: BASAL CELL CARCINOMA (C44.519) NOT PRESENT AT MARGIN DERMAL SCAR (L90.5) 3:50 PM CDT DERMATOPATHOLOGY LABORATORY at 1550 CDT Clinical History BCC Please check margins/prior biopsy 3:50 PM CDT DERMATOPATHOLOGY LABORATORY Gross Description Specimen A: Received is one formalin filled container labeled with the patient's name and designated right chest. The specimen consists of a non-oriented ellipse of skin measuring [id number] mm. The epidermal surface is unremarkable. The margin is inked green. The 12 o'clock and 6 o'clock tips are submitted in cassette 1. The remainder of the ellipse is serially sectioned and submitted in cassette 2-3. Jar 0. 3:50 PM CDT DERMATOPATHOLOGY LABORATORY Microscopic Description Specimen A. SKIN, right chest: Within the dermis there are aggregates of basaloid cells with a high nuclear to cytoplasmic ratio and peripheral palisading. This lesion is not present at the margin of the specimen. There are fibroblasts and collagen bundles oriented parallel to the skin surface with elongated blood vessels, some of which are oriented perpendicular to the skin surface. 3:50 PM CDT DERMATOPATHOLOGY LABORATORY Disclaimer An external and internal positive and negative controls are appropriate for the histochemical, immunohistochemical and immunofluorescence stain(s) in this case (if any), except where stated explicitly. The performance characteristics of the stain(s) cited in this report were developed and its performance characteristic determined by the Dermatopathology Laboratory at [facility], directed by Dr. Ashly Salazar. These tests need not be, and therefore are not, approved by the [place] Food and Drug Administration. The tests are used for clinical purposes. Billing Codes Specimen Charges Stain Charges 57321 1 3:50 PM CDT DERMATOPATHOLOGY LABORATORY Embedded Images 3:50 PM CDT DERMATOPATHOLOGY LABORATORY Pathology/Cytolo gy TISSUE SPECIMEN FROM SKIN / Unknown 09/28/2024 3:33 AM CDT 09/29/2024 1:19 PM CDT us Rea Pisano MD LAB - PATHOLOGY/CYTOLOGY ORDERAB LES Final Result DERMATOPATHOLOGY LABORATORY [facility] - Department of Dermatology [facility] Medicine [address] [place] [address], [address] [place] [address], [facility] [phone] documented in this encounter Visit Diagnoses Not on filedocumented in this encounter Care Teams Consumer Education Specialist Relationship Specialty Start Date End Date Baldemar Lackey DO PCP - General 06/05/22 documented as of this encounter
--- OUTSIDE RECORDS SUMMARY | 2025-01-23 11:05 | XMS_ITS | Clinical Summary ---
Author Organization [facility] [employer] Address [address] [place] [address] Care Team Providers Care Educational/Development Assistant Name Role Phone Baldemar Lackey DO Primary Care Provider [phone] Source Comments [facility] [employer],non-owned Affiliates and Associated Physician Practices is amultiple site organization consisting of ambulatory clinics and hospital sitesin [place], [place], [place] and [place]. This disclosure is being madepursuant to the Care Everywhere program and may not contain all information available regarding this patient. Last updated 17.[facility] [employer] Allergies No known active allergies Medications * [...] counter 10/12/2023 Coronary artery disease invo lving [place] coronary artery of [place] heart without angina pectoris 2022 2022 Overview [...] esophag itis 03/23/2022 2022 Hyperlipidemia, unspecified 03/23/202207/22 penitentiary (current) use of aspirin 03/23/2022 2022 Obesity, [...] (2022): Added automatically from request for surgery [id number] Dyslipidemia 06/04/2019 2022 Cervical radiculopathy 07/23/2015 3 Cephalalgia 06/01/2015 2022 Cervicalgia 06/01/2015 2022 Pain of upper extremity 06/01/2015 08/15/19 23 Arthralgia of shoulder 03/24/2013 3 Immunizations Immunization Administration Dates Next Due [employer] BIVALENT 12Y+ 30mcg/0.3ML 2 INFLUENZA VACCINE, HIGH-DOSE [...] Recorded Patient Health Questionnaire-2 Score 0 02/10/2024 [facility] - Occupational [...] AM CDT Legal Sex Male 7:12 AM TAN ROOM SUPERVISOR Gender Identity Male 07/24/2022 8:56 AM CDT [...] st Contact Info) Description 03/15/2025 10:00 AM TAN ROOM SUPERVISOR Office Visit [facility] - Orthopedic Surgery [address] [place] [address] Daniel Borden MD [address] [facility] [address] [place] [address] Health Maintenance Due Date Last Done Comments COLON MONITORING 1950 COLONOSCOPY - COLON CA SCREENING 1950 CT COLONOGRAPHY - COLON CA SCREENING 1950 FIT - COLON CA SCREENING 1950 FLEX SIG - COLON CA SCREENING 1950 HEPATITIS C SCREENING 08/09/1968 ZOSTER VACCINE (2 of 2) 03/16/2019 01/19/2019 DEPRESSION SCREENING 03/23/2024 11/10/2023, 07/31/19 23 MEDICARE AWV CALENDAR YEAR 2024 COVID-19 VACCINE (2024- season) 2024 12/05/2021, 06/25/2021, 12/20/2020, Additional history exists INFLUENZA VACCINE (#1) 2024 , 12/02/2021, 12/02/2019, Additional history exists Respiratory Syncytial Virus (RSV) Vaccine Pt: or over 60 yrs (1 - 1-dose 75+ series) 2025 COLOGUARD (AGES 45-75) - COLON CA SCREENING 02/04/2026 02/04/2023, 12/12/2019 Colorectal Cancer Screening 02/04/2026 DTAP/TDAP/TD VACCINES (2 - Td or Tdap) 01/24/2032 01/23/2022 PNEUMOCOCCAL VACCINE 50+ Completed 12/02/2021, 1004/2018 HEPATITIS B VACCINE Aged Out No longe [...] this topic Medical Devices Implanted Type Area Stock Clerk Device Identifier Shelf Expiration Date Model / Serial / Lot Triathlon X3 Tibial Bearing Insert - Cs Implanted:Qty: 1 on 06/29/2022 by Laila Ricketts MD at [facility] Right: Knee [employer] Compass 11/19/2026 5531-G-509- E / / [id number] Cmnt Bone Rally 40gm Hvisc Sprmnt Grn Implanted:Qty: 2 on 10/12/2023 by Daniel Borden MD at [facility] Right: Knee [employer] 05/21/2027 [id number] / / [id number] Articular Insert Implanted:Qty: 1 on 10/12/2023 by Daniel Borden MD at [facility] Right: Knee 06/27/2031 [id number] / / [id number] Cmnt Bone Rally 40gm Hvisc Sprmnt Grn Implanted:Qty: 1 on 10/12/2023 by Daniel Borden MD at [facility] Right: Knee [employer] 05/21/2027 [id number] / / [id number] Cement Restrictor Implanted:Qty: 2 on 10/16/2023 by Daniel Borden MD at [facility] Right: Knee [employer] 02/20/2033 [id number] / / [id number] Screw Bsplt 20mm 6.5mm Gns2 Kn Tib Por Implanted:Qty: 1 on 10/16/2023 by Daniel Borden MD at [facility] Right: Knee [employer] [id number] 07/29/2031 [id number] / / [id number] Constrained Femoral Component Implanted:Qty: 1 on 10/16/2023 by Daniel Borden MD at [facility] Right: Knee [employer] 02/27/2031 [id number] / / [id number] Human Resources Benefits Assistant Implanted:Qty: 1 on 10/16/2023 by Daniel Borden MD at [facility] Right: Knee [employer] 08/22/2030 [id number] / / [id number] Wedge Fem 5mm Legion 5-6 Lng Kn Post Implanted:Qty: 1 on 10/16/2023 by Daniel Borden MD at [facility] Right: Knee [employer] [id number] 10/29/2031 [id number] / / [id number] Stm Xtn 120mm 14mm Legion Str Kn Ti Implanted:Qty: 1 on 10/16/2023 by Daniel Borden MD at [facility] Right: Knee [employer] [id number] 12/26/2032 [id number] / / [id number] Constrained Articular Insert Implanted:Qty: 1 on 10/16/2023 by Daniel Borden MD at [facility] Right: Knee [employer] 05/25/2033 [id number] / / [id number] Cmnt Bone Rally 40gm Hvisc Sprmnt Grn Implanted:Qty: 6 on 10/16/2023 by Daniel Borden MD at [facility] Right: Knee [employer] 05/21/2027 [id number] / / [id number] Short Tibial Cone Implanted:Qty: 1 on 10/16/2023 by Daniel Borden MD at [facility] Right: Knee [employer] [id number] 08/22/2033 [id number] / / [id number] Legion Cemented Stem Implanted:Qty: 1 on 10/16/2023 by Daniel Borden MD at [facility] Right: Knee [employer] 11/12/2031 [id number] / / [id number] Bsplt Tib Legion 5 Kn Rt Rev Implanted:Qty: 1 on 10/16/2023 by Daniel Borden MD at [facility] Right: Knee [employer] [id number] 07/04/2033 [id number] / / [id number] Explanted Type Area Stock Clerk Device Identifier Shelf Expiration Date Model / Serial / Lot Screw Bsplt 15mm 6.5mm Gns2 Kn Tib Por Explanted:Qty : 1 on 10/16/2023 by Daniel Borden MD at [facility] Right: Knee [employer] [id number] 01/10/2033 [id number] / / [id number] Femoral Component Implanted:Qty : 1 on 10/12/2023 by Daniel Borden MD at [facility] Explanted:Qty : 1 on 10/16/2023 at [facility] Right: Knee 11/11/2031 [id number] / / [id number] Insurance [facility]ICARE [facility] ADV [facility] ADV MEDICARE Advance Directives Documents on File Type Date Recorded Patient Match Marker Expl anation Adv Directive/Living Will/POA 10/12/2023 * Full Code (Latest Code Status on File) Date Activated Date Inactivated Comments 10/12/2023 2:46 PM 10/18/2023 11:01 AM * Full Code Date Activated Date Inactivated Comments 06/28/2022 3:14 PM 07/03/2022 4:41 PM Care Teams Educational/Development Assistant Relationship Specialty Start Date End Date Baldemar Lackey DO PCP - General 06/05/22
--- OUTSIDE RECORDS SUMMARY | 2025-01-23 11:05 | XMS_ITS | Clinical Summary ---
Author Organization [facility] Address [address] [place] [address] Care Team Providers Care Stereoptic Projection Topographer Name Role Phone JuliakoreyBaldemar de la o Primary Care Provider Allergies No known active allergies Medications losartan [...] (03/02/2020): Added automatically from request for surgery [id number] Cervical radiculopathy 07/23/2015 Cephalalgia 06/01/2015 Cervicalgia 06/01/2015 [...] on file Legal Sex Male 5:59 AM FIBER PRODUCT CUTTING MACHINE OPERATOR Gender Identity Male 01/22/2021 9:57 AM CDT Sexual Orientation Not on file Last Filed Vital Signs Vital Sign Reading Time Taken Comments Blood Pressure 144/76 03/12/2021 9:14 AM FIBER PRODUCT CUTTING MACHINE OPERATOR Pulse 56 03/12/2021 9:14 AM FIBER PRODUCT CUTTING MACHINE OPERATOR Temperature 36.6 C (97.9 F) 03/28/2020 3:15 PM FIBER PRODUCT CUTTING MACHINE OPERATOR Respiratory Rate 16 03/12/2021 9:14 AM FIBER PRODUCT CUTTING MACHINE OPERATOR Oxygen Saturation 99% 03/12/2021 9:14 AM FIBER PRODUCT CUTTING MACHINE OPERATOR Inhaled Oxygen Concentration - - Weight 117.9 kg (260 lb) 01/28/2021 8:18 AM FIBER PRODUCT CUTTING MACHINE OPERATOR Height 182.9 cm (6') 01/28/2021 8:18 AM FIBER PRODUCT CUTTING MACHINE OPERATOR Body Mass Index 35.26 01/28/2021 8:18 AM FIBER PRODUCT CUTTING MACHINE OPERATOR Plan of Treatment Not on file Medical Devices Implanted Type Area Food Processing Chemist Device Identifier Shelf Expiration Date Model / Serial / Lot Joint Bilateral: Knee Description: [facility] [id number] [facility] [id number] Care Teams Stereoptic Projection Topographer Relationship Specialty Start Date End Date Baldemar Lackey DO PCP - General Internal Medicine 12/09/19
== END 2025-01-23 10:06 | disposition home or self-care (01) ==
PROVIDERS: PCP Internal Medicine; Visit Provider Urology
DX: N20.0 Calculus of kidney (principal)
CPT/HCPCS: 74018

== ENCOUNTER 2025-02-03 14:15 | Outpatient (CLI) | payer MEDICARE, SELFPAY ==
--- OUTSIDE RECORDS SUMMARY | 2000-11-05 09:00 | XMS_ITS | Continuity of Care Document ---
Author Organization [facility] Address [address] [place] [address] Phone Care Team Providers Care Director Of Student Life Name Role Phone Vega OD, Beto Unavailable Unavailable Advance Directives Directive Yes / No Effective Date File Name No Information Encounters Encounter Description Practice Location Reason(s) For Visit Diagnoses Date Provider Providers Copied on Encounter [facility], [address], [place], [place], [address], [place] tel:[phone] [facility] No Information 6-200 1 Vega OD Beto. [address] , [address], [place], [address], [place]. tel:[phone] Family History Family Member Type Diagnosis Age At Onset No Information Payers Payer name Insurance type Covered green party ID Authoriza tion(s) No Information Social History Type Description Quantity Date Captured Comments Sex Male Smoking Status No Information Chief Complaint And Reason For Visit No Information Reason For Referral Reason For Referral No Information History Of Present Illness Encounter Date Complaint History Of Prese nt Illness No Information Functional Status Date Functional Assessmen t No Information Instructions Date Instruction Additional Infor mation No Information Assessments Type Assessment Date No Information Patient Care Teams Name Effective Dates (start - stop) Status Members No Information
--- OUTSIDE RECORDS SUMMARY | 2000-11-05 09:00 | XMS_ITS | Continuity of Care Document ---
Author Organization [facility] Address [address] [place] [address] Phone Care Team Providers Care Bowling Ball Patcher Name Role Phone Vega OD, Beto Unavailable Unavailable Advance Directives Directive Yes / No Effective Date File Name No Information Encounters Encounter Description Practice Location Reason(s) For Visit Diagnoses Date Provider Providers Copied on Encounter [facility], [address], [place], [place], [address], [place] tel:[phone] [facility] No Information 6-200 1 Vega OD Beto. [address] , [address], [place], [address], [place]. tel:[phone] Family History Family Member Type Diagnosis Age At Onset No Information Payers Payer name Insurance type Covered libertarian ID Authoriza tion(s) No Information Social History [...]
--- OUTSIDE RECORDS SUMMARY | 2000-11-05 09:00 | XMS_ITS | Continuity of Care Document ---
Author Organization [facility] Address [address] [place] [address] Phone Care Team Providers Care Bench Tool Maker Name Role Phone Vega OD, Beto Unavailable Unavailable Advance Directives Directive Yes / No Effective Date File Name No Information Encounters Encounter Description Practice Location Reason(s) For Visit Diagnoses Date Provider Providers Copied on Encounter [facility], [address], [place], [place], [address], [place] tel:[phone] [facility] No Information 6-200 1 Vega OD Beto. [address] , [address], [place], [address], [place]. tel:[phone] Family History Family Member Type Diagnosis Age [...]
--- OUTSIDE RECORDS SUMMARY | 2021-03-07 02:00 | XMS_ITS | Continuity of Care Document ---
Author Organization [facility] Address [address] [place] [address] [address] [place] [address] Phone Care Team Providers Care Biological Scientist Name Role Phone Clement PT,MPT,ATC, Paul Unavailable Unavai lable Procedures Procedure Date Therapeutic Activities Neuromuscular Re-Ed Neuromuscular Re-Ed Therapeutic Exercise Therapeutic Activities Therapeutic Activities Neuromuscular Re-Ed Therapeutic Exercise Neuromuscular Re-Ed Therapeutic Activities Therapeutic Exercise Therapeutic Activities Therapeutic Exercise Neuromuscular Re-Ed Neuromuscular Re-Ed Therapeutic Activities Therapeutic Exercise Neuromuscular Re-Ed Therapeutic Exercise Therapeutic Activities Neuromuscular Re-Ed Therapeutic Activities Therapeutic Exercise Therapeutic Activities Therapeutic Exercise Neuromuscular Re-Ed Neuromuscular Re-Ed Therapeutic Activities Therapeutic Exercise Neuromuscular Re-Ed Therapeutic Activities Therapeutic Exercise PT Evaluation Moderate Complexity Therapeutic Activities Neuromuscular Re-Ed Therapeutic Exercise Advance Directives Directive Yes / No Effective Date File Name No Information Encounters Encounter Description Practice Location Reason(s) For Visit Diagnoses Date Provider Providers Copied on Encounter [facility], [address], [place], [place], [address], [place] tel:[phone] [place] [facility] Referring Provider: Dago Messina, [address] [place] [address], [address]. tel:[phone] [facility] [address], [place], [place], [address], [place] tel:[phone] [place] No Information Dec-1 1 [facility] [place] . Referring Provider: Dago Messina, [address] [place] [address], [address]. tel:[phone] [facility], [address], [place], [place], [address], [place] tel:[phone] [place] No Information Dec-0 - 1 [place], [place], . Referring Provider: Dago Messina, [address] [place] [address], [address]. tel:[phone] [facility] [address], [place], [place], [address], [place] tel:[phone] [place] No Information Dec-0 - 1 [place], [place], . Referring Provider: Dago Messina, [address] [place] [address], [address]. tel:[phone] [facility] [address], [place], [place], [address], [place] tel:[phone] [place] No Information Dec-0 2- 1 [facility] [place] Referring Provider: Dago Messina, [address] [place] [address], [address]. tel:[phone] [facility], [address], [place], [place], [address], [place] tel:[phone] [place] No Information Nov-3 0- 1 Clement Paul. , [place], [place]. Referring Provider: Dago Messina, [address] [place] [address], [address]. tel:[phone] [facility], [address], [place], [place], [address], [place] tel:[phone] [place] No Information 1 Clemnet Paul. , [place], [place]. Referring Provider: Dago Messina, [address] [place] [address], [address]. tel:[phone] [facility], [address], [place], [place], [address], [place] tel:[phone] [place] No Information 1 Clement Paul. , [place], [place]. Referring Provider: Dago Messina, [address] [place] [address], [address]. tel:[phone] [facility], [address], [place], [place], [address], [place] tel:[phone] [place] No Information 1 Clement Paul. , [place], [place]. Referring Provider: Dago Messina, [address] [place] [address], [address]. tel:[phone] [place] [address], [place], [place], [address], [place] tel:[phone] [place] No Information 1 Clement Paul. , [place], [place]. Referring Provider: Dago Messina, [address] [place] [address], [address]. tel:[phone] [facility] [address], [place], [place], [address], [place] tel:[phone] [place] No Information 1 Clement Paul. , [place], [place]. Referring Provider: Dago Messina, [address] [place] [address], [address]. tel:[phone] [facility] [address], [place], [place], [address], [place] tel:[phone] [place] No Information JULIO CESAR [place], [place]. Referring Provider: Dago Messina, [address] [place], [address]. tel:[phone] Family History Family Member Type Diagnosis Age At Onset No Information Payers Payer name Insurance type Covered constitution party ID Authoranniea tiyong(s) Medicare [place] MB [id number] [employer] CI [id number] Social History Type Description Quantity Date Captured Comments Sex Male Smoking Status No Information Chief Complaint And Reason For Visit No Information Reason For Referral Reason For Referral No Information History Of Present Illness Encounter Date Complaint History Of Prese nt Illness No Information Functional Status Date Functional Assessmen t No Information Instructions Date Instruction Additional Infor anne marie Giving encouragement to exercise Related to Overweight Giving encouragement to exercise Related to Overweight Assessments Type Assessment Date No Information Patient Care Teams Name Effective Dates (start - stop) Status Members No Information
--- OUTSIDE RECORDS SUMMARY | 2021-03-07 02:00 | XMS_ITS | Continuity of Care Document ---
Author Organization [facility] Address [address] [place] [address] [address] [place] [address] Phone Care Team Providers Care Steam Shovel Operator Name Role Phone Clement PT,MPT,ATC, Paul Unavailable Unavai lable Procedures Procedure Date Therapeutic Activities Neuromuscular Re-Ed Therapeutic Activities Neuromuscular Re-Ed Therapeutic Exercise Therapeutic Activities Therapeutic Exercise Neuromuscular Re-Ed Therapeutic Activities Neuromuscular Re-Ed Therapeutic Exercise Therapeutic Activities Therapeutic Exercise Neuromuscular Re-Ed Therapeutic Activities Neuromuscular Re-Ed Therapeutic Exercise Therapeutic Activities Neuromuscular Re-Ed Therapeutic Exercise Therapeutic Exercise Neuromuscular Re-Ed Therapeutic Activities Therapeutic Activities Neuromuscular Re-Ed Therapeutic Exercise Therapeutic Activities Neuromuscular Re-Ed Therapeutic Exercise Therapeutic Activities Therapeutic Exercise Neuromuscular Re-Ed PT Evaluation Moderate Complexity Therapeutic Activities Neuromuscular Re-Ed Therapeutic Exercise Advance Directives Directive Yes / No Effective Date File Name No Information Encounters Encounter Description Practice Location Reason(s) For Visit Diagnoses Date Provider Providers Copied on Encounter [facility], [address], [place], [place], [id number], [place] tel:[phone] [place] No Information Dec-1 1 [facility] Referring Provider: Dago Messina, [address] [place] [address], [address]. tel:[phone] [facility] [address], [place], [place], [address], [place] tel:[phone] [place] No Information Dec-1 1 [facility] . Referring Provider: Dago Messina, [address] [place] [address], [address]. tel:[phone] [facility], [address], [place], [place], [address], [place] tel:[phone] [place] No Information Dec-0 - 1 [place], [place], . Referring Provider: Dago Messina, [address] [place] [address], [address]. tel:[phone] [facility] [address], [place], [place], [address], [place] tel:[phone] [place] No Information Dec-0 - 1 [place], [place], . Referring Provider: Dago Messina, [address] [place] [address], [address]. tel:[phone] [facility] [address], [place], [place], [address], [place] tel:[phone] [place] No Information Dec-0 2- 1 [facility] Referring Provider: Dago Messina, [address] [place] [address], [address]. tel:[phone] [facility], [address], [place], [place], [address], [place] tel:[phone] [place] No Information Nov-3 0- 1 Clement Paul. , [place], [place]. Referring Provider: Dago Messina, [address] [place] [address], [address]. tel:[phone] [facility], [address], [place], [place], [address], [place] tel:[phone] [place] No Information 1 Clement Paul. , [place], [place]. Referring Provider: Dago Messina, [address] [place] [address], [address]. tel:[phone] [facility], [address], [place], [place], [address], [place] tel:[phone] [place] No Information 1 Clement Paul. , [place], [place]. Referring Provider: Dago Messina, [address] [place] [address], [address]. tel:[phone] [facility], [address], [place], [address], [place] tel:[phone] [place] No Information 1 Clement Paul. , [place], [place]. Referring Provider: Dago Messina, [address] [place] [address], [address]. tel:[phone] [place] [address], [place], [address], [place] tel:[phone] [place] No Information 1 Clement Paul. , [place], [place]. Referring Provider: Dago Messina, [address] [place] [address], [address]. tel:[phone] [facility] [address], [place], [place], [address], [place] tel:[phone] [place] No Information 1 Clement Paul. , [place], [place]. Referring Provider: Dago Messina, [address] [place] [address], [address]. tel:[phone] [facility] [address], [place], [place], [address], [place] tel:[phone] [place] No Information JULIO CESAR [place], [place]. Referring Provider: Dago Messina, [address] [place], [address]. tel:[phone] Family History Family Member Type Diagnosis Age At Onset No Information Payers Payer name Insurance type Covered republican ID Authoranniea tiyong(s) Medicare [place] MB [id number] [employer] CI [id number] Social History Type Description Quantity Date Captured [...]
--- OUTSIDE RECORDS SUMMARY | 2021-03-07 02:00 | XMS_ITS | Continuity of Care Document ---
Author Organization [facility] Address [address] [place] [address] [address] [place] [address] Phone Care Team Providers Care Snuff Box Finisher Name Role Phone Clement PT,MPT,ATC, Paul Unavailable [...] Diagnoses Date Provider Providers Copied on Encounter [facility], [address], [place], [place], [address], [place] tel:[phone] [place] No Information Dec-1 1 [facility] Referring Provider: Dago Messina, [address] [place] [address], [address]. tel:[phone] [facility] [address], [place], [place], [address], [place] tel:[phone] [place] No Information Dec-1 1 [facility] [place] . Referring Provider: Dago Messina, [address] [place] [address], [address]. tel:[phone] [facility], [address] [facility] [address], [place], [place], [address], [place] tel:[phone] [place] No Information Dec-0 - 1 [place], [place], . Referring Provider: Dago Messina, [address] [place] [address], [address]. tel:[phone] [facility] [address], [place], [place], [address], [place] tel:[phone] [place] No Information Dec-0 - 1 [place], [place], . Referring Provider: Dago Messina, [address] [place] [address], [address]. tel:[phone] [facility] [address], [place], [place], [address], [place] tel:[phone] [place] No Information Dec-0 2- 1 [facility] [place]. Referring Provider: Dago Messina, [address] [place] [address], [address]. tel:[phone] [facility], [address], [place], [place], [address], [place] tel:[phone] [place] No Information Nov-3 0- 1 Clement Paul. , [place], [place]. Referring Provider: Dago Messina, [address] [place] [address], [address]. tel:[phone] [facility], [address] [facility] [address], [place], [place], [address], [place] tel:[phone] [place] No Information 1 Clement Paul. , [place], [place]. Referring Provider: Dago Messina, [address] [place] [address], [address]. tel:[phone] [facility], [address], [place], [place], [address], [place] tel:[phone] [place] No Information 1 Clement Paul. , [place], [place]. Referring Provider: Dago Messina, [address] [place] [address], [address]. tel:[phone] [facility], [address] [facility] [address], [place], [place], [address], [place] tel:[phone] [place] No Information 1 Clement Paul. , [place], [place]. Referring Provider: Dago Messina, [address] [place] [address], [address]. tel:[phone] [place] [address] [facility] [address] [facility] [address], [place], [place], [address], [place] tel:[phone] [place] No Information 1 Clement Paul. , [place], [place]. Referring Provider: Dago Messina, [address] [place] [address], [address]. tel:[phone] [facility] [address] [facility] [address] [facility] [address], [place], [place], [address], [place] tel:[phone] [place] No Information 1 Clement Paul. , [place], [place]. Referring Provider: Dago Messina, [address] [place] [address], [address]. tel:[phone] [facility] [address], [place], [place], [address], [place] tel:[phone] [place] No Information JULIO CESAR [place], [place]. Referring Provider: Dago Messina, [address] [place], [address]. tel:[phone] Family History Family Member Type Diagnosis Age At Onset No Information Payers Payer name Insurance type Covered republican ID Authoranniea tiyong(s) Medicare [place] MB [id number] [employer] CI [id number] Social History Type Description Quantity Date Captured [...]
--- NOTE | ~2025-02-03 | CT_ITS ---
CT abdomen pelvis wo con INDICATION:right flank pain . COMPARISON: None. TECHNIQUE: Axial 2.5 mm images of the abdomen were obtained without IV or oral contrast. Diagnostic sensitivity is limited due to lack of IV contrast. FINDINGS: The lung bases are clear. There is a small hiatal hernia and thickening of the distal esophagus. The liver parenchyma is unremarkable. No intrahepatic mass or ductal dilatation is evident. The gallbladder is unremarkable. The pancreas and spleen are normal in appearance. The adrenal glands are symmetric in size. The kidneys are unremarkable. Nonobstructive intrarenal stones are noted bilaterally measuring up to 10.5 mm. There is no hydronephrosis. Bowel loops are normal in caliber. There is no bowel obstruction or acute appendicitis. There is sigmoid and descending colon diverticulosis without evidence of acute diverticulitis. The bladder and rectum are normal. The prostate is normal in size. No free intraperitoneal fluid or air is evident. There is no significant retroperitoneal lymphadenopathy. The aorta, visceral vessels and renal arteries demonstrate normal caliber. The lower thoracic and lumbar vertebrae are in normal alignment. IMPRESSION: Clonic diverticulosis without evidence of acute diverticulitis. Small hiatal hernia with thickening of the distal esophageal wall. Nonobstructive intrarenal stones bilaterally. All CT scans at this facility are performed using low dose modulation techniques as appropriate to perform exam including the following: automated exposure control; use of iterative reconstruction technique; adjustment of the mA and/or kV according to patient size (this includes techniques or standardized protocols for targeted exams where dose is matched to indication/reason for exam). Reviewed, dictated and finalized at location S. TIC INJECTION MOLD MAKER IMPRESSION: Clonic diverticulosis without evidence of acute diverticulitis. Small hiatal hernia with thickening of the distal esophageal wall. Nonobstructive intrarenal stones bilaterally. All CT scans at this facility are performed using low dose modulation techniqu es as appropriate to perform exam including the following: automated exposure c ontrol; use of iterative reconstruction technique; adjustment of the mA and/or kV according to patient size (this includes techniques or standardized protocol s for targeted exams where dose is matched to indication/reason for exam).
--- OUTSIDE RECORDS SUMMARY | 2025-02-03 18:41 | XMS_ITS | Encounter Summary ---
Author Organization [facility] Address [address] [place] [address] Care Team Providers Care Transportation Associate Name Role Phone Baldemar Lackey DO Primary Care Provider [phone] Brett Parrish MD Unavailable Encounter Details Date Type Department Care Team ([facility] Contact Info) Description 06/14/2019 Abstract [facility] at [facility], [address] [address] Genet Miller MA Social History Tobacco Use [...] AM CDT Legal Sex Male 11:27 PM DISPATCHER RADIOACTIVE WASTE DISPOSAL Gender Identity Male 07/23/2023 8:58 AM CDT [...] (Late Contact Info) Description 04/18/2025 9:45 AM DISPATCHER RADIOACTIVE WASTE DISPOSAL Office Visit [facility], [address] [place], [place] [id number] Brett Parrish MD Three [facility]. [address] [place] [address] documented as of this encounter Procedures Procedure [...] LABORATORY Final Result * LIPID PANEL (01/19/2023) [facility] CHOLESTEROL 141 TRIGLYCERIDES 269 HDL 33 LDL (CALCULATED) 73 NON HDL CHOLESTEROL 108 Default History Genericprovider LABORATORY Final Result * CBC, MANUAL DIFF (01/19/2023) [facility] WBC 5.8 HGB 13.7 HCT 40.8 PLT 200 Default History Genericprovider LABORATORY Final Result * PROSTATE SPECIFIC ANTIGEN,TOTAL (11/16/2019) [facility] PSA 4.3 11/16/2019 [facility] Abstract LABORATORY Final Result * CBC (OUTSIDE LAB) (11/16/2019) [facility] WBC 6.2 HGB 15.6 HCT 45.9 PLT 230 11/16/2019 [facility] Abstract LAB-OUTSIDE/ABSTRACTED Final Result * COMPREHENSIVE METABOLIC PANEL (11/16/2019) [facility] SODIUM S/P/B 141 POTASSIUM S/P/B 4.6 CO2 [...] LABORATORY Final Result * LIPID PANEL (11/16/2019) [facility] CHOLESTEROL 151 HDL 38 TRIGLYCERIDES 340 NON HDL CHOLESTEROL 113 LDL (CALCULATED) 72 11/16/2019 [facility] Abstract LABORATORY Final Result * HCT (ABSTRACTED) (06/22/2019) [facility] HCT 44.7 38.5 - 50.0 06/22/2019 [facility] Abstract LAB-OUTSIDE/ABSTRACTED Final Result * CREATININE (06/22/2019) [facility] CREATININE S/P/B 1.29 0.7 - 1.3 EGFR NON-AFR. AMER. 57 <=90 EGFR AFR. AMER. 66 > or = 60 06/22/2019 [facility] Abstract LABORATORY Final Result * BUN (OUTSIDE LAB) (06/22/2019) [facility] BUN 18 7 - 25 06/22/2019 [facility] Abstract LAB-OUTSIDE/ABSTRACTED Final Result * PROTIME (OUTSIDE LAB) (06/13/2019) [facility] PROTIME 10.3 INR 1.0 06/13/2019 [facility] Abstract LAB-OUTSIDE/ABSTRACTED Final Result * CBC (OUTSIDE LAB) (06/13/2019) [facility] WBC 6.6 3.8 - 10.8 HGB 14.4 [...] documented as of this encounter Care Teams Transportation Associate Relationship Specialty Start Date End Date Baldemar Lackey DO [address] [place] [address] PCP - General INTERNAL MEDICINE 04/22/19 [facility] [address] [place] [address] Clinton Seat Mender CARDIOVASCULAR DISEASE 05/09/19 documented as of this encounter
--- OUTSIDE RECORDS SUMMARY | 2025-02-03 18:41 | XMS_ITS | Encounter Summary ---
Author Organization [facility] Address [address] [facility] [place] [address] Care Team Providers Care Appraiser Name Role Phone Baldemar Lackey DO Primary Care Provider Encounter Details Date Type Department Care Team (Late st Contact Info) Description 05/31/2024 Lab Requisition [facility] - DermPath Lab [address] [facility], [place] [address] Lupe Burciaga, OCTAVIO [address] [place] [address] Neoplasm of uncertain behavior of [...] Recorded Patient Health Questionnaire-2 Score 0 02/10/2024 [facility] Occupat ional Health - Occupational Stress [...] place to sleep or slept in a fpc (including now)? No 10/12/2023 Sex and Gender Information Value Date Recorded Sex Assigned at Male 07/24/2022 8:56 AM CDT Legal Sex Male 7:12 AM PHLEBOTOMY PROGRAM COORDINATOR Gender Identity Male 07/24/2022 8:56 AM CDT [...] st Contact Info) Description 03/15/2025 10:00 AM PHLEBOTOMY PROGRAM COORDINATOR Office Visit [facility] - Orthopedic Surgery [address] [place] [address] Daniel Borden MD [address] [phone] documented as of this encounter Procedures Procedure Name Priority Date/Time Associated Diagnosis Comments DERMATOPATHOLOGY Routine 05/31/2024 3:33 AM CDT Neoplasm of uncertain behavior of skin documented in this encounter Results * DERMATOPATHOLOGY (05/31/2024 3:33 AM CDT) Case Report Dermatopathology Report Case: [id number] Authorizing Provider: Lupe Burciaga PA Collected: 05/31/2024 03:33 AM Ordering Location: [facility] - Received: 06/06/2024 09:07 AM [...] specimen consists of a shave biopsy measuring 71b49v9 mm. Jar 0. Specimen B: Received is [...] characteristic determined by the Dermatopathology Laboratory at [facility], directed by Dr. Ashly Salazar. These tests need not be, and therefore are not, approved by the [place] Food and Drug Administration. The tests are used for clinical purposes. Billing Codes Specimen Charges Stain Charges 63091 84652 24972 1 1 1 2:03 PM CDT DERMATOPATHOLOGY [...] PATHOLOGY/CYTOLOGY OR DERABLES Final Result DERMATOPATHOLOGY LABORATORY [facility] - Department of Dermatology [facility] Specialized Medicine [address] [place] [address], [address] [phone] documented in this encounter Visit Diagnoses Diagnosis Neoplasm of uncertain behavior of skin documented in this encounter Care Teams Appraiser Relationship Specialty Start Date End Date Baldemar Lackey DO PCP - General 06/05/22 documented as of this encounter
--- OUTSIDE RECORDS SUMMARY | 2025-02-03 18:41 | XMS_ITS | Clinical Summary ---
Author Organization [facility] [employer] Address [address] [place] [address] Care Team Providers Care Test Engine Mechanic Name Role Phone Baldemar Lackey DO Primary Care Provider [phone] Source Comments [facility] [employer],non-owned Affiliates and Associated Physician Practices is amultiple site organization consisting of ambulatory clinics and hospital sitesin [place], [place], [place]. This disclosure is being madepursuant to the Care Everywhere program and may not contain all information available regarding this patient. Last updated 17.[facility] [employer] Allergies No known active allergies Medications * [...] counter 10/12/2023 Coronary artery disease invo lving [place] coronary artery of [place] heart without angina pectoris 2022 2022 Overview [...] esophag itis 03/23/2022 2022 Hyperlipidemia, unspecified 03/23/202207/22 engineering documentation specialist (current) use of aspirin 03/23/2022 2022 Obesity, [...] (2022): Added automatically from request for surgery [id number] Dyslipidemia 06/04/2019 2022 Cervical radiculopathy 07/23/2015 3 Cephalalgia 06/01/2015 2022 Cervicalgia 06/01/2015 2022 Pain of upper extremity 06/01/2015 08/15/19 23 Arthralgia of shoulder 03/24/2013 3 Immunizations Immunization Administration Dates Next Due [employer] BIVALENT 12Y+ 30mcg/0.3ML 2 INFLUENZA VACCINE, HIGH-DOSE [...] Recorded Patient Health Questionnaire-2 Score 0 02/10/2024 [facility] of Occupat [...] place to sleep or slept in a halfway (including now)? No 10/12/2023 Sex and Gender Information Value Date Recorded Sex Assigned at Male 07/24/2022 8:56 AM CDT Legal Sex Male 7:12 AM BOX CLOSING MACHINE OPERATOR Gender Identity Male 07/24/2022 8:56 AM CDT [...] st Contact Info) Description 03/15/2025 10:00 AM BOX CLOSING MACHINE OPERATOR Office Visit [facility] - [facility] [address] [place] [address] Daniel Borden MD [address] [facility] [address] [place] [address] Health Maintenance Due Date Last Done Comments [...] this topic Medical Devices Implanted Type Area Life Insurance Actuary Device Identifier Shelf Expiration Date Model / Serial / Lot Triathlon X3 Tibial Bearing Insert - Cs Implanted:Qty: 1 on 06/29/2022 by Laila Ricketts MD at [facility] Right: Knee [employer] 11/19/2026 5531-G-509- E / / [id number] Cmnt Bone Rally 40gm Hvisc Sprmnt Grn Implanted:Qty: 2 on 10/12/2023 by Daniel Borden MD at [facility] Right: Knee [employer] 05/21/2027 [id number] / / [id number] Articular Insert Implanted:Qty: 1 on 10/12/2023 by Daniel Borden MD at [facility] Right: Knee 06/27/2031 [id number] / / [id number] Cmnt Bone Rally 40gm Hvisc Sprmnt Grn Implanted:Qty: 1 on 10/12/2023 by Daniel Borden MD at [facility] Right: Knee [employer] 05/21/2027 [id number] / / [id number] Cement Restrictor Implanted:Qty: 2 on 10/16/2023 by Daniel Borden MD at [facility] Right: Knee [employer] 02/20/2033 [id number] / / [id number] Screw Bsplt 20mm 6.5mm Gns2 Kn Tib Por Implanted:Qty: 1 on 10/16/2023 by Daniel Borden MD at [facility] Right: Knee [employer] [id number] 07/29/2031 [id number] / / [id number] Constrained Femoral Component Implanted:Qty: 1 on 10/16/2023 by Daniel Borden MD at [facility] Right: Knee [employer] 02/27/2031 [id number] / / [id number] Offset Food And Nutrition Teacher Implanted:Qty: 1 on 10/16/2023 by Daniel Borden MD at [facility] Right: Knee [employer] 08/22/2030 [id number] / / [id number] Wedge Fem 5mm Legion 5-6 Lng Kn Post Implanted:Qty: 1 on 10/16/2023 by Daniel Borden MD at [facility] Right: Knee [employer] [id number] 10/29/2031 [id number] / / [id number] Stm Xtn 120mm 14mm Legion Str Kn Ti Implanted:Qty: 1 on 10/16/2023 by Daniel Borden MD at [facility] Right: Knee [employer] [id number] 12/26/2032 [id number] / / [id number] Constrained Articular Insert Implanted:Qty: 1 on 10/16/2023 by Daniel Borden MD at [facility] Right: Knee [employer] 05/25/2033 [id number] / / [id number] Cmnt Bone Rally 40gm Hvisc Sprmnt Grn Implanted:Qty: 6 on 10/16/2023 by Daniel Borden MD at [facility] Right: Knee [employer] 05/21/2027 [id number] / / [id number] Short Tibial Cone Implanted:Qty: 1 on 10/16/2023 by Daniel Borden MD at [facility] Right: Knee [employer] [id number] 08/22/2033 [id number] / / [id number] Legion Cemented Stem Implanted:Qty: 1 on 10/16/2023 by Daniel Borden MD at [facility] Right: Knee [employer] 11/12/2031 [id number] / / [id number] Bsplt Tib Legion 5 Kn Rt Rev Implanted:Qty: 1 on 10/16/2023 by Daniel Borden MD at [facility] Right: Knee [employer] [id number] 07/04/2033 [id number] / / [id number] Explanted Type Area Life Insurance Actuary Device Identifier Shelf Expiration Date Model / Serial / Lot Screw Bsplt 15mm 6.5mm Gns2 Kn Tib Por Explanted:Qty : 1 on 10/16/2023 by Daniel Borden MD at [facility] Right: Knee [employer] [id number] 01/10/2033 [id number] / / [id number] Femoral Component Implanted:Qty : 1 on 10/12/2023 by Daniel Borden MD at [facility] Explanted:Qty : 1 on 10/16/2023 at [facility] Right: Knee 11/11/2031 [id number] / / [id number] Insurance MEDICARE [facility] MEDICARE ADV [facility] MEDICARE ADV MEDICARE Advance Directives Documents on File Type Date Recorded Patient Heavy Coil Winder Expl anation Adv Directive/Living Will/POA 10/12/2023 * Full Code (Latest Code Status on File) Date Activated Date Inactivated Comments 10/12/2023 2:46 PM 10/18/2023 11:01 AM * Full Code Date Activated Date Inactivated Comments 06/28/2022 3:14 PM 07/03/2022 4:41 PM Care Teams Test Engine Mechanic Relationship Specialty Start Date End Date Baldemar Lackey DO PCP - General 06/05/22
--- OUTSIDE RECORDS SUMMARY | 2025-02-03 18:42 | XMS_ITS | Encounter Summary ---
Author Organization [facility] Address [address] [place] [address] Care Team Providers Care Bioinformatics Technician Name Role Phone Baldemar Lackey DO Primary Care Provider [phone] Brett Parrish MD Unavailable Encounter Details Date Type Department Care Team (Late st Contact Info) Description 10/24/2021 Hospital Orders Only [facility] [place] [address] Brett Parrish MD Three [facility]. [address] [place] [address] Social History Tobacco Use Types [...] AM CDT Legal Sex Male 11:27 PM MANAGER OF COMPLIANCE Gender Identity Male 07/23/2023 8:58 AM CDT [...] AM CDT [employer] RN Active * [place] Suicide Severity Rating Scale (Screener/Recent Self-Report) Question [...] st Contact Info) Description 04/18/2025 9:45 AM MANAGER OF COMPLIANCE Office Visit [facility] [address] [place], [place] [phone] Brett Parrish MD Three [facility]. [facility] [address] [place] [address] documented as of this encounter Visit Diagnoses Not on filedocumented in this encounter Additional Health Concerns Infection Onset Date Last Indicated Resolved Time COVID-19 Rule Out 06/10/2022 06/10/2022 06/10/2022 7:54 AM CDT documented as of this encounter Care Teams Bioinformatics Technician Relationship Specialty Start Date End Date Baldemar Lackey DO [address] [place] [address] PCP - General INTERNAL MEDICINE 04/22/19 Brett Parrish MD Three [facility]. [place] [address] [place] [address] [employer] Analyst CARDIOVASCULAR DISEASE 05/09/19 documented as of this encounter
--- OUTSIDE RECORDS SUMMARY | 2025-02-03 18:42 | XMS_ITS | Clinical Summary ---
Author Organization [facility] [place] [address] Care Team Providers Care Cyber Incident Analyst Name Role Phone Baldemar Lackey DO Primary Care Provider [phone] Brett Parrish MD Unavailable Allergies No known [...] daily. 90 tablet 3 09/27/19 25 Active ISOSORBIDE MONONITRATE ER 60 MG 24 hr tablet TAKE 1 TABLET BY MOUTH NIGHTLY AT BEDTIME 90 tablet 10/01/19 22 022 Discontinued Active Problems Problem Noted Date Diagnosed Date History of transcatheter aortic valve replacemen t (TAVR) 02/15/2024 Snoring 02/12/2022 Assessment & Plan (02/12/2022 11:01 AM CHILD NEUROLOGIST): Home sleep study Dyslipidemia 06/04/2019 Essential hypertension Assessment & Plan (04/02/2023 12:38 PM CHILD NEUROLOGIST): His blood pressure is well-controlled today. Continue antihypertensive therapy. Assessment & Plan (06/14/2022 8:42 PM CDT): Continue antihypertensive therapy. Coronary artery disease invo lving pala coronary artery of pala heart without angina pectoris Assessment & Plan (04/02/2023 12:38 PM CHILD NEUROLOGIST): He is status post PCI to the [...] stenosis Assessment & Plan (04/02/2023 12:37 PM CHILD NEUROLOGIST): I reviewed his 1 year echocardiogram and it shows a well-functioning bioprosthetic aortic valve. The velocity is increased from 2.5-2.99, but I do not think that this is significant especially given that his symptoms have not changed. 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 Continue antibiotic prophylaxis. Assessment & Plan (12/30/2021 [...] Noted Date Diagnosed Date Resolved Date Sepsis 06/09/2022 02/09/2024 Severe aortic valve stenosis 02/05/2022 08/04/2022 Assessment & Plan (06/14/2022 8:41 PM CDT): He is status post transfemoral TAVR. His 1 month echo shows stable valve function. Repeat echo in 1 year. Continue dental prophylaxis with abx. Assessment & Plan (02/12/2022 11:00 AM CHILD NEUROLOGIST): s/p Successful transcatheter aortic valve replacement with Gage Linda S3 Ultra #26 mm on 02/05/22 EKG today revealed SR. Groins stable Repeat echo in 1 month Cardiac rehab ordered Antibiotic prophylaxis encouraged prior to any dental cleaning or procedure - issued Nonrheumatic aortic valve stenosis 06/04/2019 06/27/2019 Dyspnea 06/27/2019 Encounters Date Type Department Care Team Description 01/24/2025 Scan [facility], [address] [address] Scanned, Doc Pccl 11/29/2024 Scan [facility] Scanned, Doc Med [...] or ex-partner? No 06/27/2022 Social Connection and Isolation Panel Answer Date Recorded In a typical week, how many times do you talk on the phone with family, friends, or neighbors? More than three times a week 06/27/2022 How often do you get togethe r with friends or relatives? Twice a week 06/27/2022 How often do you attend chur ch or buddhist services? Never 06/27/2022 Do you belong to any clubs o r organizations such as christianity groups, unions, fraternal or athletic groups, or [...] and heating? Not hard at all 06/27/2022 [facility] [place] of Occupat ional Health - Occupational Stress [...] AM CDT Legal Sex Male 11:27 PM CHILD NEUROLOGIST Gender Identity Male 07/23/2023 8:58 AM CDT [...] st Contact Info) Description 04/18/2025 9:45 AM CHILD NEUROLOGIST Office Visit [facility], [address] [place] [address] Brett Parrish MD Three [facility]. [address] [place], [place] [phone] Health Maintenance Due Date Last Done Comments Colorectal Cancer Screening Colonoscopy (10 Years) 1950 Hepatitis C 1968 RSV Immunization or 60+ Years (1 - Risk 60-74 years 1-dose series) 2010 Annual Medicare Wellness Visit 08/15/2015 Zoster Vaccines (2 of 2) 03/16/2019 01/19/2019 PHQ-2 (Physician [place]) 03/23/2024 COVID-19 Vaccine ( season) 2024 12/05/2021, 06/25/2021, 12/20/2020, Additional history exists Influenza Adult (#1) 2024 11/27/2021, 12/02/2019, 11/21/2019 ASCVD LDL 01/24/2025 01/25/2024, 12/23, 10/22/2021, Additional history exists DTaP, Tdap and Td Vaccines (2 - Td or Tdap) 01/24/2032 01/23/2022 Pneumococcal Vaccine: 50+ Years Completed 12/02/2021, 12/22/2018 Hepatitis A Vaccines Aged Out No long er eligible based on patient's age to complete this topic Meningococcal B Vaccine Aged Out No l [...] Saldaña RN Medical Devices Implanted Type Area Selling Underwriter Device Identifier Shelf Expiration Date Model / Serial / Lot Stent Ureteral 6fr 28cm Pigtl Crv Taper Tip Bldr Mrk - [id number] Implanted:Qt y: 1 on 06/10/2022 by Lalo Rubio MD at [facility] Stent Left: Ureter [employer] THEA [id number] 01/09/2025 [id number] / / [id number] Valve Implant-01/21 Implanted:Qt y: 1 on 02/05/2022 by Shar Mack MD Valve Implant Aorta [employer]AGE [employer] THEA [id number] / [id number] / Procedures Procedure Name Priority Date/Time Associated Diagnosis Comments LIPID PANEL Routine 01/25/2024 from Last 3 Months or Most Recently Relevant to Health Maintenance Results * (ABNORMAL) LIPID PANEL (01/25/2024) CHOLESTEROL 133 0 - 200 HDL 36(A) 40 - 60 TRIGLYCERIDES 198(A) 0 - 150 NON HDL CHOLESTEROL 97 0 - 130 CHOL/HDL RATIO 3.7 0.0 - 5.0 LDL (CALCULATED) 70 0 - 100 01/25/2024 us Default History Genericprovider LABORATORY Final Result from Last 3 Months or Most Recently Relevant to Health Maintenance Insurance [employer] MEDICARE Advance Directives * Full Code (Latest Code [...] 8:43 AM 02/05/2022 1:35 PM Care Teams Cyber Incident Analyst Relationship Specialty Start Date End Date Baldemar Lackey DO [address] [place] [address] PCP - General INTERNAL MEDICINE 04/22/19 Brett Parrish MD [facility] [address] [place] [address] [place] Vamp Cut Out Worker CARDIOVASCULAR DISEASE 05/09/19
--- OUTSIDE RECORDS SUMMARY | 2025-02-03 18:42 | XMS_ITS | Clinical Summary ---
Author Organization [facility] Address [address] [place] [address] Care Team Providers Care Supervisor Phosphorus Processing Name Role Phone Baldemar Lackey DO Primary Care Provider [phone] Allergies No known active allergies Medications losartan [...] (03/02/2020): Added automatically from request for surgery [id number] Cervical radiculopathy 07/23/2015 Cephalalgia 06/01/2015 Cervicalgia 06/01/2015 [...] on file Legal Sex Male 5:59 AM DIRECTOR OF CASEWORK Gender Identity Male 01/22/2021 9:57 AM CDT Sexual Orientation Not on file Last Filed Vital Signs Vital Sign Reading Time Taken Comments Blood Pressure 144/76 03/12/2021 9:14 AM DIRECTOR OF CASEWORK Pulse 56 03/12/2021 9:14 AM DIRECTOR OF CASEWORK Temperature 36.6 C (97.9 F) 03/28/2020 3:15 PM DIRECTOR OF CASEWORK Respiratory Rate 16 03/12/2021 9:14 AM DIRECTOR OF CASEWORK Oxygen Saturation 99% 03/12/2021 9:14 AM DIRECTOR OF CASEWORK Inhaled Oxygen Concentration - - Weight 117.9 kg (260 lb) 01/28/2021 8:18 AM DIRECTOR OF CASEWORK Height 182.9 cm (6') 01/28/2021 8:18 AM DIRECTOR OF CASEWORK Body Mass Index 35.26 01/28/2021 8:18 AM DIRECTOR OF CASEWORK Plan of Treatment Not on file Medical Devices Implanted Type Area Manufacturing Chief Engineer Device Identifier Shelf Expiration Date Model / Serial / Lot Joint Bilateral: Knee Description: [facility] INCLUDE 234 BEDS AT THE [facility] [id number] MEDICARE Skill-Life [facility] COUNTS INCLUDE 234 BEDS AT THE [facility] [id number] Care Teams Supervisor Phosphorus Processing Relationship Specialty Start Date End Date Baldemar Lackey DO PCP - General Internal Medicine 12/09/19
--- OUTSIDE RECORDS SUMMARY | 2025-02-03 18:42 | XMS_ITS | Encounter Summary ---
Author Organization [facility] Address [address] [place] [address] Care Team Providers Care Grades 7 And 8 Teacher Name Role Phone Baldemar Lackey DO Primary Care Provider [phone] Brett Parrish MD Unavailable Encounter Details Date Type Department Care Team (Late st Contact Info) Description 05/29/2020 [employer] Message Enc [facility], [address] [place], [place] [phone] Marija Banuelos, ANP-BC [facility]. [address] [place] [address] Lab results Social History Tobacco [...] AM CDT Legal Sex Male 11:27 PM WIRE WHEELER Gender Identity Male 07/23/2023 8:58 AM CDT Sexual Orientation Straight 07/23/2023 8: 58 AM CDT COVID-19 Exposure Response Date Recorded In the last month, have you been in contact with someone who was confirmed or suspected to have Coronavirus / COVID-19? No / Unsure 05/28/2020 11:41 AM WIRE WHEELER documented as of this encounter Plan of Treatment Upcoming Encounters Date Type Department Care Team (Late st Contact Info) Description 04/18/2025 9:45 AM WIRE WHEELER Office Visit [facility], [address] [place], [place] [phone] Brett Parrish MD [facility]. [address] [place], [place] [phone] documented as of this encounter Visit Diagnoses Not on filedocumented in this encounter Additional Health Concerns Infection Onset Date Last Indicated Resolved Time COVID-19 Rule Out 06/10/2022 06/10/2022 06/10/2022 7:54 AM CDT documented as of this encounter Care Teams Grades 7 And 8 Teacher Relationship Specialty Start Date End Date Baldemar Lackey DO [address] [place] [address] PCP - General INTERNAL MEDICINE 04/22/19 Brett Parrish MD [facility]. [facility] [address] [place], [place] [address] Cherie Roller Hand CARDIOVASCULAR DISEASE 05/09/19 documented as of this encounter
--- OUTSIDE RECORDS SUMMARY | 2025-02-03 18:42 | XMS_ITS | Encounter Summary ---
Author Organization [facility] Address [address] [place] [address] Care Team Providers Care Dairy Specialist Name Role Phone Baldemar Lackey DO Primary Care Provider Encounter Details Date Type Department Care Team (Late st Contact Info) Description 09/29/2024 Lab Requisition [facility] - DermPath Lab [address] [facility] [place] [address] Rea Pisano MD [address] [place] [place] [address] Social History Tobacco Use Types [...] Recorded Patient Health Questionnaire-2 Score 0 02/10/2024 [facility] [place] of Occupat ional Health - Occupational Stress [...] place to sleep or slept in a custodial (including now)? No 10/12/2023 Sex and Gender Information Value Date Recorded Sex Assigned at Male 07/24/2022 8:56 AM CDT Legal Sex Male 7:12 AM APARTMENT COMMUNITY ASSISTANT MANAGER Gender Identity Male 07/24/2022 8:56 AM CDT [...] st Contact Info) Description 03/15/2025 10:00 AM APARTMENT COMMUNITY ASSISTANT MANAGER Office Visit [facility] - Orthopedic Surgery [address] [place] [id number] Daniel Borden MD [address] [id number] documented as of this encounter Procedures Procedure Name Priority Date/Time Associated Diagnosis Comments DERMATOPATHOLOGY Routine 09/28/2024 3:33 AM CDT documented in this encounter Results * DERMATOPATHOLOGY (09/28/2024 3:33 AM CDT) Case Report Dermatopathology Report Case: [id number] Authorizing Provider: Rea Pisano MD Collected: 09/28/2024 03:33 AM Ordering Location: [facility] - Received: 09/29/2024 01:19 PM [...] of a non-oriented ellipse of skin measuring [id number] mm. The epidermal surface is unremarkable. The [...] characteristic determined by the Dermatopathology Laboratory at [facility], directed by Dr. Ashly Salazar. These tests need not be, and therefore are not, approved by the [place] Food and Drug Administration. The tests are used for clinical purposes. Billing Codes Specimen Charges Stain Charges 26443 1 3:50 PM CDT DERMATOPATHOLOGY LABORATORY Embedded Images 3:50 PM CDT DERMATOPATHOLOGY LABORATORY Pathology/Cytolo gy TISSUE SPECIMEN FROM SKIN / Unknown 09/28/2024 3:33 AM CDT 09/29/2024 1:19 PM CDT us Rea Pisano MD LAB - PATHOLOGY/CYTOLOGY ORDERAB LES Final Result DERMATOPATHOLOGY LABORATORY [facility] - Department of Dermatology [facility] Medicine [address] [place] [address], [address] [place] [address], [facility] [phone] documented in this encounter Visit Diagnoses Not on filedocumented in this encounter Care Teams Dairy Specialist Relationship Specialty Start Date End Date Baldemar Lackey DO PCP - General 06/05/22 documented as of this encounter
--- OUTSIDE RECORDS SUMMARY | 2025-02-03 18:42 | XMS_ITS | Encounter Summary ---
Author Organization [facility] Address [address] [place] [address] Care Team Providers Care Environmental Compliance Engineer Name Role Phone Baldemar Lackey DO Primary Care Provider [phone] Brett Parrish MD Unavailable Encounter Details Date Type Department Care Team (Late Contact Info) Description 07/08/2021 [employer] Message Enc [facility], [address] [place], [place] [phone] Marija Banuelos, ANP-BC Three [facility]. [address] [place], [place] [phone] Lab Results Social History Tobacco Use Types [...] AM CDT Legal Sex Male 11:27 PM JOB INTERVIEWER Gender Identity Male 07/23/2023 8:58 AM CDT Sexual Orientation Straight 07/23/2023 8: 58 AM CDT documented as of this encounter Plan of Treatment Upcoming Encounters Date Type Department Care Team (Late Contact Info) Description 04/18/2025 9:45 AM JOB INTERVIEWER Office Visit [facility], [facility] [address] [place], [place] [phone] Brett Parrish MD Three [facility]. [facility] [address] [place], [place] [phone] documented as of this encounter Visit Diagnoses Not on filedocumented in this encounter Additional Health Concerns Infection Onset Date Last Indicated Resolved Time COVID-19 Rule Out 06/10/2022 06/10/2022 06/10/2022 7:54 AM CDT documented as of this encounter Care Teams Environmental Compliance Engineer Relationship Specialty Start Date End Date Baldemar Lackey DO [address] [facility] [address] [place] [address] PCP - General INTERNAL MEDICINE 04/22/19 Brett Parrish MD Three [facility]. [facility] [address] [place], [place] [phone] Cherie Community Outreach Advocate CARDIOVASCULAR DISEASE 05/09/19 documented as of this encounter
== END 2025-02-03 14:16 | disposition home or self-care (01) ==
PROVIDERS: PCP Internal Medicine; Visit Provider Nurse Practitioner Family
DX: R10.A1 Flank pain, right side (principal); K44.9 Diaphragmatic hernia without obstruction or gangrene; K57.30 Diverticulosis of large intestine without perforation or abscess without bleeding; N20.0 Calculus of kidney
CPT/HCPCS: 74176